=== PATIENT | female | born 1955 | race Caucasian/White ===

== ENCOUNTER 2022-12-06 04:14 | Inpatient (IN) | payer MEDICARE, OTHER ==
[~2022-12-06] VITALS: Ht 162.6 cm; Wt 104.4 kg
[~2022-12-06 04:14] MED LIST: ALBU108A5 INH; BACL10TA PO; FURO40TA4 PO; HYDR1TAB97 PO; HYDR50TA69 PO; LISI-716 PO; WARF5TAB71 PO
[2022-12-06] MEDS ORDERED: ONDANSETRON HCL 4 MG/2 ML VIAL IV PRN (09:15)
[2022-12-06] MEDS ORDERED: NITROGLYCERIN 0.4 MG SL TAB SL PRN (09:15)
[2022-12-06] MEDS ORDERED: hydrALAZINE HCL 20 MG/ML VL IV PRN (09:15)
[2022-12-06] MEDS ORDERED: HYDROcodone-ACET 5/325MG TAB PO PRN (09:15)
[2022-12-06] MEDS ORDERED: ACETAMINOPHEN 325 MG TAB PO PRN (09:15)
[2022-12-06] MEDS ORDERED: MORPHINE SULFATE INJ 2 MG/ml SYRG IV PRN ×2 (09:15)
[2022-12-06] MEDS ORDERED: ENOXAPARIN SOD 40 MG/0.4 ML SYRINGE SC SCH (10:00)
[2022-12-06] MEDS ORDERED: LORazepam 0.5 MG TAB PO PRN (11:45)
[2022-12-06] MEDS: PANTOPRAZOLE 40 MG TAB PO SCH (11:52)
[2022-12-06] MEDS: HYDROmorphone HCL 2 MG/ML VL/or syr IV PRN (14:58)
[2022-12-06 16:46] VITALS: BP 122/66
[2022-12-06 18:23] VITALS: BP 122/66
[2022-12-06 19:00] LABS: BUN/Creatinine Ratio 16.5; Magnesium 2.4 mg/dL (1.6-2.6); Potassium 5.1 mmol/L (3.5-5.1)
[2022-12-06 19:15] LABS: Basophils # (auto) 0 10 ^3/uL (0-0.2); Basophils % (auto) 0.4 % (0.0-2.0); Eosinophils # (auto) 0.1 10 ^3/uL (0-0.8); Eosinophils % (auto) 0.9 % (0.0-7.0); Hematocrit 30.4 % (36.0-46.0); Hemoglobin 9.5 g/dL (12.2-16.2); Lymphocytes # (auto) 0.5 10 ^3/uL (0.4-5.4); Lymphocytes % (auto) 5.1 % (10.0-50.0); Mean Corpuscular Hemoglobin 27.1 pg (28.0-32.0); Mean Corpuscular Hgb Conc. 31.3 g/dL (32.0-36.0); Mean Corpuscular Volume 86.6 fL (80.0-100.0); Monocytes # (auto) 0.9 10 ^3/uL (0-1.3); Monocytes % (auto) 8.8 % (0.0-12.0); Neutrophils # (auto) 8.4 10 ^3/uL (1.6-8.6); Neutrophils % (auto) 84.8 % (37.0-80.0); Red Blood Cells 3.51 10^6/uL (4.0-5.20); Red Cell Distribution Width 18.5 % (11.8-14.3); White Blood Cell 9.9 10^3/uL (4.4-10.8)
[2022-12-06 20:00] VITALS: BP 135/66
[2022-12-06 20:02] LABS: INR 1.35 (0.9-1.15)
[2022-12-06 22:00] VITALS: BP 135/66
[2022-12-06] MEDS: ENOXAPARIN SOD 100 MG/1 ML SYRINGE SC SCH (22:02)
[2022-12-06] MEDS: OXYCODONE W/ ACETAMINOPHEN 5/325MG TABLET PO PRN (22:09)
[2022-12-07] VITALS (7 sets, daily range): BP systolic 114–151; BP diastolic 66–93
[2022-12-07] MEDS: OXYCODONE W/ ACETAMINOPHEN 5/325MG TABLET PO PRN ×3 (05:01→18:46)
[2022-12-07 05:43] LABS: Basophils # (auto) 0 10 ^3/uL (0-0.2); Basophils % (auto) 0.5 % (0.0-2.0); Eosinophils # (auto) 0.1 10 ^3/uL (0-0.8); Eosinophils % (auto) 1.8 % (0.0-7.0); Hematocrit 28.1 % (36.0-46.0); Hemoglobin 8.9 g/dL (12.2-16.2); Lymphocytes # (auto) 0.7 10 ^3/uL (0.4-5.4); Lymphocytes % (auto) 9.3 % (10.0-50.0); Mean Corpuscular Hemoglobin 27.3 pg (28.0-32.0); Mean Corpuscular Hgb Conc. 31.8 g/dL (32.0-36.0); Mean Corpuscular Volume 85.9 fL (80.0-100.0); Monocytes # (auto) 0.8 10 ^3/uL (0-1.3); Monocytes % (auto) 10.6 % (0.0-12.0); Neutrophils # (auto) 5.7 10 ^3/uL (1.6-8.6); Neutrophils % (auto) 77.8 % (37.0-80.0); Nucleated Red Blood Cells % 1.1 %; Red Blood Cells 3.27 10^6/uL (4.0-5.20); Red Cell Distribution Width 18.5 % (11.8-14.3); White Blood Cell 7.4 10^3/uL (4.4-10.8)
[2022-12-07 06:00] LABS: Potassium 4.2 mmol/L (3.5-5.1)
[2022-12-07 06:02] LABS: INR 1.38 (0.9-1.15); Partial Thromboplastin Time 41.1 sec (24.6-33.4)
[2022-12-07 06:13] LABS: Albumin 2.6 g/dL (3.4-5.0); BUN/Creatinine Ratio 16.9; Calcium 9.1 mg/dL (8.5-10.1)
[2022-12-07 06:16] LABS: Bilirubin, Total 0.7 mg/dL (0.2-1.0); Total Protein 6.9 g/dL (6.4-8.2)
[2022-12-07] MEDS: FUROSEMIDE 40 MG TAB PO SCH (09:32)
[2022-12-07] MEDS: PANTOPRAZOLE 40 MG TAB PO SCH (09:32)
[2022-12-07] MEDS: LISINOPRIL 10 MG TAB PO SCH (09:33)
[2022-12-07] MEDS: ENOXAPARIN SOD 100 MG/1 ML SYRINGE SC SCH (09:37)
[2022-12-07] MEDS ORDERED: WARFARIN SODIUM 5 MG TAB PO SCH ×2 (10:00→17:00)
[2022-12-07] MEDS: DAPTOmycin 500 MG in SODIUM CHL 0.9% 100 ML IV SCH (16:27)
[2022-12-08] VITALS (7 sets, daily range): BP systolic 119–135; BP diastolic 66–92
[2022-12-08] MEDS: OXYCODONE W/ ACETAMINOPHEN 5/325MG TABLET PO PRN ×2 (00:08→22:04)
[2022-12-08] MEDS: HYDROcodone-ACET 5/325MG TAB PO PRN ×3 (01:19→22:04)
[2022-12-08 07:08] LABS: INR 1.38 (0.9-1.15); Partial Thromboplastin Time 38.3 sec (24.6-33.4)
[2022-12-08] MEDS ORDERED: AMIODARONE 450mg/250ml AE 250 ML IV SCH (08:00)
[2022-12-08] MEDS: LISINOPRIL 10 MG TAB PO SCH (09:17)
[2022-12-08] MEDS: PANTOPRAZOLE 40 MG TAB PO SCH (09:19)
[2022-12-08] MEDS: FUROSEMIDE 40 MG TAB PO SCH (09:20)
[2022-12-08] MEDS: DAPTOmycin 500 MG in SODIUM CHL 0.9% 100 ML IV SCH (15:57)
[2022-12-08] MEDS ORDERED: WARFARIN SODIUM 2 MG TAB PO ONE (17:00)
[2022-12-09] MEDS: OXYCODONE W/ ACETAMINOPHEN 5/325MG TABLET PO PRN ×3 (02:01→23:05)
[2022-12-09 05:00] VITALS: BP 122/65
[2022-12-09 07:03] LABS: INR 1.32 (0.9-1.15); Partial Thromboplastin Time 31.4 sec (24.6-33.4)
[2022-12-09 08:00] VITALS: BP 117/65
[2022-12-09] MEDS: DAPTOmycin 500 MG in SODIUM CHL 0.9% 100 ML IV SCH (09:57)
[2022-12-09] MEDS: PANTOPRAZOLE 40 MG TAB PO SCH (09:57)
[2022-12-09] MEDS: FUROSEMIDE 40 MG TAB PO SCH (09:58)
[2022-12-09] MEDS: LISINOPRIL 10 MG TAB PO SCH (09:58)
[2022-12-09 12:00] VITALS: BP 134/68
[2022-12-09] MEDS: AMIODARONE HCL 200 MG TAB PO SCH ×2 (12:19→21:24)
[2022-12-09 16:00] VITALS: BP 121/62
[2022-12-09] MEDS ORDERED: WARFARIN SODIUM 2 MG TAB PO ONE (17:00)
[2022-12-09 22:00] VITALS: BP_SYST 111; BP_SYST 146; BP_DIAS 66; BP_DIAS 72
[2022-12-10 05:00] VITALS: BP 105/46
[2022-12-10 07:14] LABS: INR 1.52 (0.9-1.15)
[2022-12-10 08:00] VITALS: BP 142/74
[2022-12-10] MEDS: AMIODARONE HCL 200 MG TAB PO SCH ×2 (09:16→21:02)
[2022-12-10] MEDS: PANTOPRAZOLE 40 MG TAB PO SCH (09:16)
[2022-12-10] MEDS: LISINOPRIL 10 MG TAB PO SCH (09:17)
[2022-12-10] MEDS: FUROSEMIDE 40 MG TAB PO SCH (09:17)
[2022-12-10] MEDS: OXYCODONE W/ ACETAMINOPHEN 5/325MG TABLET PO PRN ×2 (09:18→14:25)
[2022-12-10] MEDS: DAPTOmycin 500 MG in SODIUM CHL 0.9% 100 ML IV SCH (09:19)
[2022-12-10 12:00] VITALS: BP 127/64
[2022-12-10 16:00] VITALS: BP 153/81
[2022-12-10] MEDS: HYDROmorphone HCL 2 MG/ML VL/or syr IV PRN ×2 (16:05→21:03)
[2022-12-10] MEDS ORDERED: WARFARIN SODIUM 5 MG TAB PO ONE (17:00)
[2022-12-10 22:00] VITALS: BP 153/75
[2022-12-11] MEDS: OXYCODONE W/ ACETAMINOPHEN 5/325MG TABLET PO PRN ×2 (03:42→15:26)
[2022-12-11 05:00] VITALS: BP 137/77
[2022-12-11 07:42] LABS: INR 1.48 (0.9-1.15)
[2022-12-11] MEDS: LISINOPRIL 10 MG TAB PO SCH (08:45)
[2022-12-11] MEDS: FUROSEMIDE 40 MG TAB PO SCH (08:46)
[2022-12-11] MEDS: AMIODARONE HCL 200 MG TAB PO SCH (08:46)
[2022-12-11 09:00] VITALS: BP 147/48
[2022-12-11] MEDS: DAPTOmycin 500 MG in SODIUM CHL 0.9% 100 ML IV SCH (10:00)
[2022-12-11 13:00] VITALS: BP 125/64
[2022-12-11] MEDS ORDERED: WARFARIN SODIUM 2 MG TAB PO ONE (17:00)
== END 2022-12-11 17:15 | DRG 565 ==
LOC: EDBD 04:14 → ER 04:14 → OVERFLOW 09:07 → WEST WING 16:15 → TELE-WESTW 17:57
PROVIDERS: ADMIT Nurse Practitioner; ATTEND Nurse Practitioner
PROC: 0S9D3ZX Drainage of Left Knee Joint, Percutaneous Approach, Diagnostic (ICD-10-PCS; principal; 2022-12-07)
DX: M25.462 Effusion, left knee (principal); D68.59 Other primary thrombophilia; I48.92 Unspecified atrial flutter; I13.0 Hypertensive heart and chronic kidney disease with heart failure and stage 1 through stage 4 chronic kidney disease, or unspecified chronic kidney disease; I50.30 Unspecified diastolic (congestive) heart failure; S83.102A Unspecified subluxation of left knee, initial encounter; N18.9 Chronic kidney disease, unspecified; E03.9 Hypothyroidism, unspecified; Z20.822 Contact with and (suspected) exposure to COVID-19; E66.01 Morbid (severe) obesity due to excess calories; I48.0 Paroxysmal atrial fibrillation; I25.10 Atherosclerotic heart disease of native coronary artery without angina pectoris; J45.909 Unspecified asthma, uncomplicated; M10.9 Gout, unspecified; M19.90 Unspecified osteoarthritis, unspecified site; Z68.39 Body mass index [BMI] 39.0-39.9, adult; Z88.1 Allergy status to other antibiotic agents; Z95.5 Presence of coronary angioplasty implant and graft; Z88.8 Allergy status to other drugs, medicaments and biological substances; Z90.49 Acquired absence of other specified parts of digestive tract; Z79.01 Long term (current) use of anticoagulants; Z79.899 Other long term (current) drug therapy; Z95.1 Presence of aortocoronary bypass graft; X58.XXXA Exposure to other specified factors, initial encounter; Y93.89 Activity, other specified; Y92.89 Other specified places as the place of occurrence of the external cause; Y99.8 Other external cause status
CPT/HCPCS: 36415; 73562; 73700; 76942; 80048; 80053; 83735; 83986; 85025; 85610; 85730; 87081; 87205; 87426; 89051; 93005; 97163; G0378; J2405

== ENCOUNTER 2023-06-04 13:55 | Inpatient (IN) | payer MEDICARE, OTHER ==
[~2023-06-04] VITALS: Ht 165.1 cm; Wt 87.8 kg
[~2023-06-04 13:55] MED LIST changes: -LISI-716 PO; +LISI10TA34 PO; +WARF-66 PO; -WARF5TAB71 PO
[2023-06-04] MEDS ORDERED: PIPERACILLIN-TAZOB 3.375GM 100 ML IV ONE (15:45)
[2023-06-04 16:17] LABS: Basophils # (auto) 0 10 ^3/uL (0-0.2); Basophils % (auto) 0.8 % (0.0-2.0); Eosinophils # (auto) 0.3 10 ^3/uL (0-0.8); Eosinophils % (auto) 5.3 % (0.0-7.0); Hematocrit 36.1 % (36.0-46.0); Hemoglobin 12.2 g/dL (12.2-16.2); Lymphocytes # (auto) 1.2 10 ^3/uL (0.4-5.4); Lymphocytes % (auto) 22.9 % (10.0-50.0); Mean Corpuscular Hemoglobin 31.1 pg (28.0-32.0); Mean Corpuscular Hgb Conc. 33.7 g/dL (32.0-36.0); Mean Corpuscular Volume 92.2 fL (80.0-100.0); Monocytes # (auto) 0.6 10 ^3/uL (0-1.3); Monocytes % (auto) 11.6 % (0.0-12.0); Neutrophils # (auto) 3.1 10 ^3/uL (1.6-8.6); Neutrophils % (auto) 59.4 % (37.0-80.0); Nucleated Red Blood Cells % 0.1 %; Red Blood Cells 3.92 10^6/uL (4.0-5.20); Red Cell Distribution Width 14.4 % (11.8-14.3); White Blood Cell 5.2 10^3/uL (4.4-10.8)
[2023-06-04 16:29] LABS: Alanine Aminotransferase 24 U/L (7-40); Alkaline Phosphatase 147 U/L (46-116); Anion Gap 5.5 (5-15); Aspartate Aminotransferase 15 U/L (13-40); BUN/Creatinine Ratio 18.6 (10.0-20.0); Bilirubin, Total 0.3 mg/dL (0.2-1.0); Blood Urea Nitrogen 27 mg/dL (9-23); Calcium 9.4 mg/dL (8.5-10.1); Carbon Dioxide 26.5 mmol/L (20-30); Chloride 110 mmol/L (98-107); Glucose 106 mg/dL (74-106); Potassium 5.2 mmol/L (3.5-5.1); Sodium 142 mmol/L (136-145); Total Protein 6.9 g/dL (5.7-8.2)
[2023-06-04] MEDS ORDERED: VANCOMYCIN 1GM/250ML 250 ML IV ONE (16:45)
[2023-06-04] MEDS ORDERED: SODIUM CHLORIDE 0.9% 1,000 ML IV ONE ×2 (16:45)
[2023-06-04 17:06] LABS: INR 1.04 (0.9-1.15); Partial Thromboplastin Time 31.9 SEC (24.5-34.5); Prothrombin Time 10.9 sec (9.3-11.8)
[2023-06-04 21:17] LABS: Urine Bacteria FEW /hpf (None Seen); Urine Blood Negative /uL (Negative); Urine Clarity Clear (Clear); Urine Color Colorless (Yellow); Urine Protein, UAD Negative (Negative); Urine Specific Gravity 1.019 (1.001-1.035); Urine Urobilinogen Normal (Negative); Urine WBC 1 /hpf (0 - 5); Urine pH 6.5 (5.0-8.0)
[2023-06-04] MEDS ORDERED: VANCOMYCIN PER PHARMACY 0 MG IV SCH (21:45)
[2023-06-04] MEDS ORDERED: DOCUSATE SOD 100 MG CAP PO PRN (21:45)
[2023-06-04] MEDS ORDERED: MORPHINE SULFATE INJ 2 MG/ml SYRG IV PRN ×2 (21:45)
[2023-06-04] MEDS ORDERED: NITROGLYCERIN 0.4 MG SL TAB SL PRN (21:45)
[2023-06-04] MEDS ORDERED: ACETAMINOPHEN 325 MG TAB PO PRN (21:45)
[2023-06-04] MEDS ORDERED: ONDANSETRON HCL 4 MG/2 ML VIAL IV PRN (21:45)
[2023-06-05] MEDS: SODIUM CHLORIDE 0.9% 1,000 ML IV SCH ×2 (04:15→11:01)
[2023-06-05] MEDS: ASCORBIC ACID 500 MG TAB PO SCH ×3 (04:27→21:59)
[2023-06-05 06:03] LABS: Basophils # (auto) 0 10 ^3/uL (0-0.2); Basophils % (auto) 0.7 % (0.0-2.0); Eosinophils # (auto) 0.3 10 ^3/uL (0-0.8); Hematocrit 35.2 % (36.0-46.0); Hemoglobin 11.8 g/dL (12.2-16.2); Lymphocytes # (auto) 1.2 10 ^3/uL (0.4-5.4); Lymphocytes % (auto) 19.8 % (10.0-50.0); Mean Corpuscular Hemoglobin 30.8 pg (28.0-32.0); Mean Corpuscular Hgb Conc. 33.5 g/dL (32.0-36.0); Mean Corpuscular Volume 91.9 fL (80.0-100.0); Monocytes # (auto) 0.6 10 ^3/uL (0-1.3); Monocytes % (auto) 10.3 % (0.0-12.0); Neutrophils # (auto) 3.8 10 ^3/uL (1.6-8.6); Neutrophils % (auto) 64.2 % (37.0-80.0); Nucleated Red Blood Cells % 0.1 %; Red Blood Cells 3.83 10^6/uL (4.0-5.20); Red Cell Distribution Width 14.6 % (11.8-14.3)
[2023-06-05 06:19] LABS: Alanine Aminotransferase 20 U/L (7-40); Albumin 4.1 g/dL (3.2-4.8); Alkaline Phosphatase 144 U/L (46-116); Calcium 9.4 mg/dL (8.5-10.1); Chloride 110 mmol/L (98-107)
[2023-06-05 06:20] LABS: Aspartate Aminotransferase 12 U/L (13-40); BUN/Creatinine Ratio 14.9 (10.0-20.0); Bilirubin, Total 0.5 mg/dL (0.2-1.0); Blood Urea Nitrogen 20 mg/dL (9-23); Glucose 91 mg/dL (74-106); Potassium 4.4 mmol/L (3.5-5.1); Sodium 142 mmol/L (136-145); Total Protein 7.2 g/dL (5.7-8.2)
[2023-06-05 07:00] LABS: Anion Gap 9.8 (5-15); Carbon Dioxide 22.2 mmol/L (20-30)
[2023-06-05 09:08] VITALS: PULSE 62; RESP 12; O2SAT 96
[2023-06-05] MEDS ORDERED: ENOXAPARIN SOD 40 MG/0.4 ML SYRINGE SC SCH (10:00)
[2023-06-05] MEDS: LISINOPRIL 10 MG TAB PO SCH (10:57)
[2023-06-05] MEDS: MULTIPLE VITAMIN TAB PO SCH (10:58)
[2023-06-05] MEDS: PANTOPRAZOLE 40 MG TAB PO SCH (11:00)
[2023-06-05] MEDS: ZINC SULFATE 220mg CAP or TAB PO SCH (11:01)
[2023-06-05] MEDS ORDERED: SPIR25TA8 PO (11:05)
[2023-06-05] MEDS ORDERED: APIX5TAB PO (11:05)
[2023-06-05] MEDS ORDERED: AMIO100T3 PO (11:05)
[2023-06-05] MEDS ORDERED: QUET1TAB11 PO (11:05)
[2023-06-05] MEDS: VANCOMYCIN 1GM/250ML 250 ML IV SCH (12:28)
[2023-06-05 17:35] VITALS: BP 144/66; PULSE 55; RESP 18; TEMP 98.8; O2SAT 94
[2023-06-05 18:23] VITALS: PULSE 55; RESP 18; O2SAT 95
[2023-06-05 19:30] VITALS: PULSE 55; RESP 17; O2SAT 95
[2023-06-05 20:00] VITALS: PULSE 59
[2023-06-05] MEDS: QUEtiapine FUMARATE 25 MG TAB PO SCH (21:59)
[2023-06-05] MEDS: APIXABAN 5 MG TAB PO SCH (21:59)
[2023-06-05 22:00] VITALS: BP 148/46; PULSE 55; RESP 17; TEMP 98.6; O2SAT 95
[2023-06-06] VITALS (7 sets, daily range): BP systolic 130–164; BP diastolic 50–79; PULSE 56–69; RESP 17–18; TEMP 97.8–98.7; O2SAT 94–95
[2023-06-06] MEDS ORDERED: cefTRIAXone 1GM/50ML D5W 100 ML IV ONE (00:20)
[2023-06-06] MEDS: CEFTRIAXONE SODIUM 2 GM in D5W 5% 100 ML IV SCH ×2 (00:23→22:08)
[2023-06-06] MEDS: SODIUM CHLORIDE 0.9% 1,000 ML IV SCH ×3 (06:43→22:08)
[2023-06-06] MEDS: APIXABAN 5 MG TAB PO SCH (09:41)
[2023-06-06] MEDS: ZINC SULFATE 220mg CAP or TAB PO SCH (09:41)
[2023-06-06] MEDS: QUEtiapine FUMARATE 25 MG TAB PO SCH ×2 (09:41→22:03)
[2023-06-06] MEDS: SPIRONOLACTONE 25 MG TAB PO SCH (09:41)
[2023-06-06] MEDS: MULTIPLE VITAMIN TAB PO SCH (09:41)
[2023-06-06] MEDS: ASCORBIC ACID 500 MG TAB PO SCH ×2 (09:41→22:03)
[2023-06-06] MEDS: PANTOPRAZOLE 40 MG TAB PO SCH (09:41)
[2023-06-06] MEDS: AMIODARONE HCL 200 MG TAB PO SCH (09:54)
[2023-06-06] MEDS: LISINOPRIL 10 MG TAB PO SCH (09:56)
[2023-06-06] MEDS ORDERED: AMIODARONE HCL PO SCH (10:00)
[2023-06-06] MEDS: VANCOMYCIN 1GM/250ML 250 ML IV SCH (12:03)
[2023-06-06] MEDS: HYDROcodone-ACET 5/325MG TAB PO PRN (22:06)
[2023-06-07] VITALS (7 sets, daily range): BP systolic 115–158; BP diastolic 68–95; PULSE 55–70; RESP 15–18; TEMP 97.9–98.7; O2SAT 94–95
[2023-06-07] MEDS: HYDROcodone-ACET 5/325MG TAB PO PRN ×2 (05:00→21:29)
[2023-06-07] MEDS ORDERED: ENOXAPARIN SOD 100 MG/1 ML SYRINGE SC SCH (10:00)
[2023-06-07] MEDS: SPIRONOLACTONE 25 MG TAB PO SCH (10:15)
[2023-06-07] MEDS: ZINC SULFATE 220mg CAP or TAB PO SCH (10:15)
[2023-06-07] MEDS: QUEtiapine FUMARATE 25 MG TAB PO SCH ×2 (10:16→21:18)
[2023-06-07] MEDS: PANTOPRAZOLE 40 MG TAB PO SCH (10:16)
[2023-06-07] MEDS: AMIODARONE HCL 200 MG TAB PO SCH (10:16)
[2023-06-07] MEDS: MULTIPLE VITAMIN TAB PO SCH (10:16)
[2023-06-07] MEDS: ASCORBIC ACID 500 MG TAB PO SCH ×2 (10:16→21:18)
[2023-06-07] MEDS: LISINOPRIL 10 MG TAB PO SCH (10:17)
[2023-06-07] MEDS: VANCOMYCIN 1GM/250ML 250 ML IV SCH (12:13)
[2023-06-07] MEDS: SODIUM CHLORIDE 0.9% 1,000 ML IV SCH (16:25)
[2023-06-07] MEDS: CEFTRIAXONE SODIUM 2 GM in D5W 5% 100 ML IV SCH (21:21)
[2023-06-08] MEDS ORDERED: ENOXAPARIN SOD 100 MG/1 ML SYRINGE SC SCH
[2023-06-08 04:52] VITALS: BP 153/85; PULSE 66; RESP 16; TEMP 98.3; O2SAT 91
[2023-06-08] MEDS: SODIUM CHLORIDE 0.9% 1,000 ML IV SCH (05:45)
[2023-06-08 06:33] LABS: Anion Gap 7 (5-15); Carbon Dioxide 25 mmol/L (20-30); Chloride 110 mmol/L (98-107); Sodium 142 mmol/L (136-145)
[2023-06-08 06:34] LABS: Calcium 9.4 mg/dL (8.7-10.4)
[2023-06-08 06:39] LABS: BUN/Creatinine Ratio 12.4 (10.0-20.0); Blood Urea Nitrogen 15 mg/dL (9-23); Glucose 89 mg/dL (74-106)
[2023-06-08 06:42] LABS: Basophils # (auto) 0 10 ^3/uL (0-0.2); Basophils % (auto) 0.8 % (0.0-2.0); Eosinophils # (auto) 0.3 10 ^3/uL (0-0.8); Eosinophils % (auto) 5.2 % (0.0-7.0); Hematocrit 34.3 % (36.0-46.0); Hemoglobin 11.6 g/dL (12.2-16.2); Lymphocytes # (auto) 1.3 10 ^3/uL (0.4-5.4); Lymphocytes % (auto) 22.7 % (10.0-50.0); Mean Corpuscular Hemoglobin 31.3 pg (28.0-32.0); Mean Corpuscular Hgb Conc. 33.9 g/dL (32.0-36.0); Mean Corpuscular Volume 92.3 fL (80.0-100.0); Monocytes # (auto) 0.6 10 ^3/uL (0-1.3); Monocytes % (auto) 10.8 % (0.0-12.0); Neutrophils # (auto) 3.5 10 ^3/uL (1.6-8.6); Neutrophils % (auto) 60.5 % (37.0-80.0); Nucleated Red Blood Cells % 0.1 %; Red Blood Cells 3.72 10^6/uL (4.0-5.20); Red Cell Distribution Width 13.8 % (11.8-14.3); White Blood Cell 5.7 10^3/uL (4.4-10.8)
[2023-06-08] MEDS: HYDROcodone-ACET 5/325MG TAB PO PRN (07:04)
[2023-06-08 08:00] VITALS: PULSE 67; RESP 18; O2SAT 95
[2023-06-08] MEDS ORDERED: CIPR-173 PO (09:59)
[2023-06-08] MEDS ORDERED: levoFLOXacin 500MG 100 ML IV SCH (10:00)
[2023-06-08 10:26] VITALS: BP 157/68; TEMP 36.8
[2023-06-08] MEDS ORDERED: APIXABAN 5 MG TAB PO SCH (10:33)
[2023-06-08] MEDS: SPIRONOLACTONE 25 MG TAB PO SCH (10:42)
[2023-06-08] MEDS: ZINC SULFATE 220mg CAP or TAB PO SCH (10:42)
[2023-06-08] MEDS: QUEtiapine FUMARATE 25 MG TAB PO SCH (10:43)
[2023-06-08] MEDS: AMIODARONE HCL 200 MG TAB PO SCH (10:43)
[2023-06-08] MEDS: LISINOPRIL 10 MG TAB PO SCH (10:43)
[2023-06-08] MEDS: MULTIPLE VITAMIN TAB PO SCH (10:44)
[2023-06-08] MEDS: PANTOPRAZOLE 40 MG TAB PO SCH (10:44)
[2023-06-08] MEDS: ASCORBIC ACID 500 MG TAB PO SCH (10:44)
== END 2023-06-08 13:23 | disposition home health service (06) | DRG 920 ==
LOC: ER 13:55 → TELE 21:42 → TELE-WESTW 06-05 17:22
PROVIDERS: ADMIT Nurse Practitioner; ATTEND Nurse Practitioner
DX: T81.31XA Disruption of external operation (surgical) wound, not elsewhere classified, initial encounter (principal); I13.0 Hypertensive heart and chronic kidney disease with heart failure and stage 1 through stage 4 chronic kidney disease, or unspecified chronic kidney disease; I50.32 Chronic diastolic (congestive) heart failure; I48.92 Unspecified atrial flutter; M19.90 Unspecified osteoarthritis, unspecified site; S81.002A Unspecified open wound, left knee, initial encounter; I25.10 Atherosclerotic heart disease of native coronary artery without angina pectoris; E87.5 Hyperkalemia; J45.909 Unspecified asthma, uncomplicated; M10.9 Gout, unspecified; X58.XXXA Exposure to other specified factors, initial encounter; E66.01 Morbid (severe) obesity due to excess calories; Z68.32 Body mass index [BMI] 32.0-32.9, adult; I48.0 Paroxysmal atrial fibrillation; N18.9 Chronic kidney disease, unspecified; Z79.01 Long term (current) use of anticoagulants; Z79.899 Other long term (current) drug therapy; Z86.718 Personal history of other venous thrombosis and embolism; Z88.8 Allergy status to other drugs, medicaments and biological substances; Z95.1 Presence of aortocoronary bypass graft; Z88.1 Allergy status to other antibiotic agents; Z90.49 Acquired absence of other specified parts of digestive tract; Y93.89 Activity, other specified; Y92.89 Other specified places as the place of occurrence of the external cause; Y99.8 Other external cause status
CPT/HCPCS: 36415; 71045; 73700; 73721; 80048; 80053; 80202; 81001; 83605; 84484; 85025; 85610; 85730; 87040; 87205; 96365; G0378; J0696; J1956; J2543; J7060

== ENCOUNTER 2023-11-15 21:56 | Inpatient (IN) | payer MEDICARE, OTHER ==
[~2023-11-15] VITALS: Ht 165.1 cm; Wt 86.5 kg
[~2023-11-15 21:56] MED LIST changes: +AMIO100T3 PO; +APIX5TAB PO; +CIPR-173 PO; +QUET1TAB11 PO; +SPIR25TA8 PO
[2023-11-15 23:25] LABS: Basophils # (auto) 0 10 ^3/uL (0-0.2); Basophils % (auto) 0.2 % (0.0-2.0); Eosinophils # (auto) 0 10 ^3/uL (0-0.8); Hematocrit 38.7 % (36.0-46.0); Hemoglobin 12.7 g/dL (12.2-16.2); Lymphocytes # (auto) 0.6 10 ^3/uL (0.4-5.4); Lymphocytes % (auto) 3.9 % (10.0-50.0); Mean Corpuscular Hemoglobin 31.4 pg (28.0-32.0); Mean Corpuscular Hgb Conc. 32.8 g/dL (32.0-36.0); Mean Corpuscular Volume 95.9 fL (80.0-100.0); Monocytes # (auto) 0.9 10 ^3/uL (0-1.3); Monocytes % (auto) 5.8 % (0.0-12.0); Neutrophils # (auto) 13.9 10 ^3/uL (1.6-8.6); Neutrophils % (auto) 90.1 % (37.0-80.0); Red Blood Cells 4.03 10^6/uL (4.0-5.20); White Blood Cell 15.4 10^3/uL (4.4-10.8)
[2023-11-15 23:47] LABS: Alanine Aminotransferase 18 U/L (7-40); Albumin 4.2 g/dL (3.2-4.8); Alkaline Phosphatase 111 U/L (46-116); Anion Gap 9 (5-15); Aspartate Aminotransferase 23 U/L (13-40); BUN/Creatinine Ratio 10.6 (10.0-20.0); Bilirubin, Total 0.8 mg/dL (0.2-1.0); Blood Urea Nitrogen 15 mg/dL (9-23); Calcium 9.8 mg/dL (8.5-10.1); Carbon Dioxide 26 mmol/L (20-30); Chloride 107 mmol/L (98-107); Glucose 113 mg/dL (74-106); Potassium 3.8 mmol/L (3.5-5.1); Sodium 142 mmol/L (136-145); Total Protein 6.9 g/dL (5.7-8.2)
[2023-11-15 23:55] LABS: CRP High Sensitivity 18.59 mg/dL (<1.0)
[2023-11-16] VITALS (7 sets, daily range): BP systolic 133; BP diastolic 60; PULSE 81–103; RESP 16; TEMP 99.1; O2SAT 94–98
[2023-11-16 00:09] LABS: Lipase 40 U/L (12-53)
[2023-11-16] MEDS: HYDROmorphone HCL 2 MG/ML VL/or syr IM ONE (00:37)
[2023-11-16] MEDS: ACETAMINOPHEN 500 MG TAB PO ONE (00:38)
[2023-11-16] MEDS ORDERED: VANCOMYCIN PER PHARMACY 0 MG IV SCH (01:30)
[2023-11-16] MEDS: PIPERACILLIN-TAZOB 3.375GM 100 ML IV ONE (02:07)
[2023-11-16] MEDS ORDERED: VANCOMYCIN IV SCH (02:30)
[2023-11-16] MEDS ORDERED: SODIUM CHL 0.9% IV SCH (02:30)
[2023-11-16] MEDS ORDERED: DOCUSATE SOD 100 MG CAP PO PRN (02:45)
[2023-11-16] MEDS: HYDROcodone-ACET 5/325MG TAB PO PRN (04:14)
[2023-11-16 05:31] LABS: Basophils # (auto) 0 10 ^3/uL (0-0.2); Basophils % (auto) 0.3 % (0.0-2.0); Eosinophils # (auto) 0 10 ^3/uL (0-0.8); Eosinophils % (auto) 0.3 % (0.0-7.0); Hematocrit 36.1 % (36.0-46.0); Hemoglobin 12.2 g/dL (12.2-16.2); Lymphocytes # (auto) 0.7 10 ^3/uL (0.4-5.4); Lymphocytes % (auto) 5.5 % (10.0-50.0); Mean Corpuscular Hemoglobin 32.2 pg (28.0-32.0); Mean Corpuscular Hgb Conc. 33.7 g/dL (32.0-36.0); Mean Corpuscular Volume 95.6 fL (80.0-100.0); Monocytes % (auto) 7.3 % (0.0-12.0); Neutrophils # (auto) 11.3 10 ^3/uL (1.6-8.6); Neutrophils % (auto) 86.6 % (37.0-80.0); Red Blood Cells 3.78 10^6/uL (4.0-5.20); Red Cell Distribution Width 14.8 % (11.8-14.3); White Blood Cell 13.1 10^3/uL (4.4-10.8)
[2023-11-16] MEDS: SODIUM CHLOR 0.9% PF (SALINE LOCK) 10ML VIAL/SYR IV SCH (05:33)
[2023-11-16 05:44] LABS: Alanine Aminotransferase 18 U/L (7-40); Albumin 4.1 g/dL (3.2-4.8); Alkaline Phosphatase 107 U/L (46-116); Anion Gap 9 (5-15); Aspartate Aminotransferase 19 U/L (13-40); BUN/Creatinine Ratio 13.8 (10.0-20.0); Blood Urea Nitrogen 21 mg/dL (9-23); Calcium 9.5 mg/dL (8.5-10.1); Carbon Dioxide 27 mmol/L (20-30); Chloride 107 mmol/L (98-107); Glucose 116 mg/dL (74-106); Potassium 3.7 mmol/L (3.5-5.1); Sodium 143 mmol/L (136-145)
[2023-11-16 05:45] LABS: Bilirubin, Total 0.9 mg/dL (0.2-1.0)
[2023-11-16] MEDS ORDERED: NITROGLYCERIN 0.4 MG SL TAB SL PRN (07:00)
[2023-11-16] MEDS ORDERED: MORPHINE SULFATE INJ 2 MG/ml SYRG IV PRN (07:00)
[2023-11-16] MEDS ORDERED: VANCOMYCIN 1GM/200ML 200 ML IV ONE (13:45)
[2023-11-16] MEDS ORDERED: cefTRIAXone 2GM/50ML D5W 50 ML IV ONE (14:45)
[2023-11-16] MEDS: CLINDAMYCIN 600MG IV 50 ML IV ONE (15:44)
[2023-11-16] MEDS: PIPERACILLIN-TAZOB 3.375GM 100 ML IV SCH ×2 (15:45→23:52)
[2023-11-16] MEDS: hydrALAZINE HCL 20 MG/ML VL IV PRN (18:19)
[2023-11-16] MEDS: ACETAMINOPHEN 325 MG TAB PO PRN (18:28)
[2023-11-16] MEDS: CLINDAMYCIN 900MG IV 50 ML IV SCH (21:33)
[2023-11-16] MEDS: ONDANSETRON HCL 4 MG/2 ML VIAL IV PRN (21:33)
[2023-11-17] VITALS (8 sets, daily range): BP systolic 109–137; BP diastolic 49–84; PULSE 90–102; RESP 16–20; TEMP 97.9–99.7; O2SAT 92–95
[2023-11-17 05:38] LABS: Basophils # (auto) 0 10 ^3/uL (0-0.2); Basophils % (auto) 0.1 % (0.0-2.0); Eosinophils # (auto) 0 10 ^3/uL (0-0.8); Hemoglobin 12.2 g/dL (12.2-16.2); Lymphocytes # (auto) 0.5 10 ^3/uL (0.4-5.4); Lymphocytes % (auto) 3.4 % (10.0-50.0); Mean Corpuscular Hemoglobin 31.8 pg (28.0-32.0); Mean Corpuscular Volume 96.6 fL (80.0-100.0); Monocytes % (auto) 6.5 % (0.0-12.0); Red Blood Cells 3.83 10^6/uL (4.0-5.20); Red Cell Distribution Width 15.1 % (11.8-14.3); White Blood Cell 15.5 10^3/uL (4.4-10.8)
[2023-11-17 06:02] LABS: Alanine Aminotransferase 19 U/L (7-40); Alkaline Phosphatase 123 U/L (46-116); Anion Gap 11 (5-15); BUN/Creatinine Ratio 11.9 (10.0-20.0); Blood Urea Nitrogen 16 mg/dL (9-23); Calcium 9.5 mg/dL (8.7-10.4); Carbon Dioxide 24 mmol/L (20-30); Chloride 106 mmol/L (98-107); Glucose 126 mg/dL (74-106); Potassium 4.2 mmol/L (3.5-5.1); Sodium 141 mmol/L (136-145)
[2023-11-17 06:03] LABS: Albumin 4.1 g/dL (3.2-4.8); Aspartate Aminotransferase 18 U/L (13-40)
[2023-11-17 06:04] LABS: Bilirubin, Total 0.7 mg/dL (0.2-1.0); Total Protein 7.2 g/dL (5.7-8.2)
[2023-11-17] MEDS ORDERED: VANCOMYCIN PER PHARMACY 0 MG IV SCH (15:30)
[2023-11-17] MEDS: VANCOMYCIN 1GM/200ML 200 ML IV SCH (17:00)
[2023-11-18 04:00] VITALS: BP 149/74; PULSE 61; RESP 20; TEMP 98.5; O2SAT 90
[2023-11-18 09:00] VITALS: BP 129/62; PULSE 74; RESP 22; TEMP 98.4; O2SAT 97
[2023-11-18 09:17] LABS: Basophils # (auto) 0 10 ^3/uL (0-0.2); Basophils % (auto) 0.3 % (0.0-2.0); Eosinophils # (auto) 0.1 10 ^3/uL (0-0.8); Eosinophils % (auto) 0.6 % (0.0-7.0); Hematocrit 34.5 % (36.0-46.0); Hemoglobin 11.3 g/dL (12.2-16.2); Lymphocytes # (auto) 0.7 10 ^3/uL (0.4-5.4); Lymphocytes % (auto) 5.7 % (10.0-50.0); Mean Corpuscular Hemoglobin 31.5 pg (28.0-32.0); Mean Corpuscular Hgb Conc. 32.7 g/dL (32.0-36.0); Mean Corpuscular Volume 96.2 fL (80.0-100.0); Monocytes # (auto) 0.9 10 ^3/uL (0-1.3); Neutrophils # (auto) 9.8 10 ^3/uL (1.6-8.6); Neutrophils % (auto) 85.4 % (37.0-80.0); Red Blood Cells 3.58 10^6/uL (4.0-5.20); White Blood Cell 11.5 10^3/uL (4.4-10.8)
[2023-11-18] MEDS ORDERED: EPINEPHrine HCL 1 MG/10 ML SYRG IV ONE (09:19)
[2023-11-18] MEDS ORDERED: CALCIUM CHLOR(10%) 100MG/ML 10ML SYRINGE IV ONE (09:19)
[2023-11-18 09:24] LABS: Alanine Aminotransferase 23 U/L (7-40); Alkaline Phosphatase 117 U/L (46-116); Anion Gap 10 (5-15); Aspartate Aminotransferase 24 U/L (13-40); BUN/Creatinine Ratio 16.3 (10.0-20.0); Bilirubin, Total 0.5 mg/dL (0.2-1.0); Blood Urea Nitrogen 25 mg/dL (9-23); Calcium 9.6 mg/dL (8.5-10.1); Carbon Dioxide 25 mmol/L (20-30); Chloride 106 mmol/L (98-107); Glucose 109 mg/dL (74-106); Sodium 141 mmol/L (136-145); Total Protein 6.9 g/dL (5.7-8.2)
[2023-11-18 13:00] VITALS: BP 148/70; PULSE 83; RESP 20; TEMP 98.3; O2SAT 92
[2023-11-18 17:00] VITALS: BP 149/79; PULSE 93; RESP 18; TEMP 98.6; O2SAT 92
[2023-11-18 20:00] VITALS: PULSE 94
[2023-11-18] MEDS: LINEZOLID 600MG/300ML 300 ML IV SCH (21:48)
[2023-11-18 22:00] VITALS: BP 145/79; PULSE 82; RESP 18; TEMP 98.7; O2SAT 91
[2023-11-18] MEDS: OXYCODONE W/ ACETAMINOPHEN 5/325MG TABLET PO PRN (22:03)
[2023-11-19] VITALS (8 sets, daily range): BP systolic 118–163; BP diastolic 67–81; PULSE 72–87; RESP 14–22; TEMP 97.8–99.2; O2SAT 90–95
[2023-11-19 07:13] LABS: Basophils # (auto) 0 10 ^3/uL (0-0.2); Basophils % (auto) 0.4 % (0.0-2.0); Eosinophils # (auto) 0.2 10 ^3/uL (0-0.8); Eosinophils % (auto) 2.7 % (0.0-7.0); Hematocrit 33.9 % (36.0-46.0); Hemoglobin 11.3 g/dL (12.2-16.2); Lymphocytes # (auto) 0.9 10 ^3/uL (0.4-5.4); Mean Corpuscular Hemoglobin 32.2 pg (28.0-32.0); Mean Corpuscular Hgb Conc. 33.3 g/dL (32.0-36.0); Mean Corpuscular Volume 96.7 fL (80.0-100.0); Monocytes # (auto) 0.6 10 ^3/uL (0-1.3); Monocytes % (auto) 9.1 % (0.0-12.0); Neutrophils # (auto) 5.3 10 ^3/uL (1.6-8.6); Neutrophils % (auto) 74.8 % (37.0-80.0); Nucleated Red Blood Cells % 0.1 %; Red Cell Distribution Width 14.5 % (11.8-14.3); White Blood Cell 7.1 10^3/uL (4.4-10.8)
[2023-11-19 07:28] LABS: Alanine Aminotransferase 25 U/L (7-40); Albumin 3.5 g/dL (3.2-4.8); Alkaline Phosphatase 104 U/L (46-116); Anion Gap 5 (5-15); Aspartate Aminotransferase 19 U/L (13-40); BUN/Creatinine Ratio 19.5 (10.0-20.0); Blood Urea Nitrogen 26 mg/dL (9-23); Calcium 8.9 mg/dL (8.5-10.1); Carbon Dioxide 29 mmol/L (20-30); Chloride 107 mmol/L (98-107); Glucose 95 mg/dL (74-106); Potassium 4.3 mmol/L (3.5-5.1); Sodium 141 mmol/L (136-145)
[2023-11-19 07:29] LABS: Bilirubin, Total 0.4 mg/dL (0.2-1.0); Total Protein 5.8 g/dL (5.7-8.2)
[2023-11-19] MEDS: PIPERACILLIN-TAZOB 3.375GM 100 ML IV SCH (11:42)
[2023-11-19 12:16] LABS: Urine Bacteria FEW /hpf (None Seen); Urine Blood 2+ /uL (Negative); Urine Clarity HAZY (Clear); Urine Color Yellow (Yellow); Urine Mucus FEW (None Seen); Urine Protein, UAD 1+ (Negative); Urine Specific Gravity 1.028 (1.001-1.035); Urine WBC 9 /hpf (0 - 5); Urine pH 5.5 (5.0-8.0)
[2023-11-20] VITALS (7 sets, daily range): BP systolic 116–170; BP diastolic 45–87; PULSE 72–92; RESP 16–22; TEMP 98–98.6; O2SAT 92–96
[2023-11-20] MEDS: SUMAtriptan SUCCINATE 25 MG TAB PO ONE (00:27)
[2023-11-20 07:11] LABS: Basophils # (auto) 0.1 10 ^3/uL (0-0.2); Basophils % (auto) 0.8 % (0.0-2.0); Eosinophils # (auto) 0.2 10 ^3/uL (0-0.8); Eosinophils % (auto) 3.5 % (0.0-7.0); Hematocrit 35.5 % (36.0-46.0); Hemoglobin 12.1 g/dL (12.2-16.2); Lymphocytes % (auto) 14.6 % (10.0-50.0); Mean Corpuscular Hemoglobin 32.7 pg (28.0-32.0); Mean Corpuscular Hgb Conc. 34.2 g/dL (32.0-36.0); Mean Corpuscular Volume 95.7 fL (80.0-100.0); Monocytes # (auto) 0.7 10 ^3/uL (0-1.3); Monocytes % (auto) 10.9 % (0.0-12.0); Neutrophils # (auto) 4.6 10 ^3/uL (1.6-8.6); Neutrophils % (auto) 70.2 % (37.0-80.0); Nucleated Red Blood Cells % 0.2 %; Red Blood Cells 3.71 10^6/uL (4.0-5.20); Red Cell Distribution Width 14.5 % (11.8-14.3); White Blood Cell 6.5 10^3/uL (4.4-10.8)
[2023-11-20 07:22] LABS: Alanine Aminotransferase 23 U/L (7-40); Albumin 3.9 g/dL (3.2-4.8); Alkaline Phosphatase 110 U/L (46-116); Anion Gap 8 (5-15); Aspartate Aminotransferase 20 U/L (13-40); BUN/Creatinine Ratio 13.5 (10.0-20.0); Bilirubin, Total 0.4 mg/dL (0.2-1.0); Blood Urea Nitrogen 15 mg/dL (9-23); Calcium 9.4 mg/dL (8.5-10.1); Carbon Dioxide 26 mmol/L (20-30); Chloride 106 mmol/L (98-107); Glucose 86 mg/dL (74-106); Potassium 3.6 mmol/L (3.5-5.1); Sodium 140 mmol/L (136-145); Total Protein 6.9 g/dL (5.7-8.2)
[2023-11-20 16:51] LABS: INR 1.05 (0.9-1.15); Partial Thromboplastin Time 30.4 SEC (24.5-34.5)
[2023-11-20] MEDS: NAFCILLIN SOD 2GM 2 GM in SODIUM CHL 0.9% 100 ML IV SCH (18:00)
[2023-11-21] VITALS (7 sets, daily range): BP systolic 124–179; BP diastolic 59–85; PULSE 68–89; RESP 17–20; TEMP 98–99.1; O2SAT 93–96
[2023-11-21 06:20] LABS: Basophils # (auto) 0 10 ^3/uL (0-0.2); Basophils % (auto) 0.6 % (0.0-2.0); Eosinophils # (auto) 0.2 10 ^3/uL (0-0.8); Hematocrit 36.2 % (36.0-46.0); Lymphocytes # (auto) 0.9 10 ^3/uL (0.4-5.4); Lymphocytes % (auto) 14.7 % (10.0-50.0); Mean Corpuscular Hemoglobin 32.1 pg (28.0-32.0); Mean Corpuscular Hgb Conc. 33.2 g/dL (32.0-36.0); Mean Corpuscular Volume 96.7 fL (80.0-100.0); Monocytes # (auto) 0.6 10 ^3/uL (0-1.3); Monocytes % (auto) 10.2 % (0.0-12.0); Neutrophils # (auto) 4.2 10 ^3/uL (1.6-8.6); Neutrophils % (auto) 71.5 % (37.0-80.0); Red Blood Cells 3.75 10^6/uL (4.0-5.20); Red Cell Distribution Width 14.6 % (11.8-14.3); White Blood Cell 5.9 10^3/uL (4.4-10.8)
[2023-11-21 06:36] LABS: Alanine Aminotransferase 22 U/L (7-40); Albumin 3.7 g/dL (3.2-4.8); Alkaline Phosphatase 103 U/L (46-116); Anion Gap 9 (5-15); Aspartate Aminotransferase 13 U/L (13-40); BUN/Creatinine Ratio 10.9 (10.0-20.0); Bilirubin, Total 0.6 mg/dL (0.2-1.0); Blood Urea Nitrogen 14 mg/dL (9-23); Calcium 9.3 mg/dL (8.5-10.1); Carbon Dioxide 26 mmol/L (20-30); Chloride 107 mmol/L (98-107); Glucose 99 mg/dL (74-106); Potassium 3.8 mmol/L (3.5-5.1); Sodium 142 mmol/L (136-145); Total Protein 6.4 g/dL (5.7-8.2)
[2023-11-21] MEDS: LIDOCAINE 1% (LOCAL ANESTH.) PF 5ml SDV ID ONE (18:54)
[2023-11-21] MEDS: SODIUM CHLOR 0.9% PF (SALINE LOCK) 10ML VIAL/SYR IV SCH (22:00)
[2023-11-22] VITALS (7 sets, daily range): BP systolic 144–158; BP diastolic 50–80; PULSE 63–76; RESP 16–18; TEMP 97.9–98.7; O2SAT 94–98
[2023-11-22 06:31] LABS: Basophils # (auto) 0 10 ^3/uL (0-0.2); Basophils % (auto) 0.7 % (0.0-2.0); Eosinophils # (auto) 0.2 10 ^3/uL (0-0.8); Eosinophils % (auto) 3.3 % (0.0-7.0); Hematocrit 35.4 % (36.0-46.0); Hemoglobin 11.7 g/dL (12.2-16.2); Lymphocytes # (auto) 0.9 10 ^3/uL (0.4-5.4); Lymphocytes % (auto) 13.7 % (10.0-50.0); Mean Corpuscular Hemoglobin 31.7 pg (28.0-32.0); Mean Corpuscular Hgb Conc. 33.1 g/dL (32.0-36.0); Mean Corpuscular Volume 95.8 fL (80.0-100.0); Monocytes # (auto) 0.6 10 ^3/uL (0-1.3); Monocytes % (auto) 9.2 % (0.0-12.0); Neutrophils # (auto) 4.8 10 ^3/uL (1.6-8.6); Neutrophils % (auto) 73.1 % (37.0-80.0); Red Cell Distribution Width 14.6 % (11.8-14.3); White Blood Cell 6.5 10^3/uL (4.4-10.8)
[2023-11-22 06:49] LABS: Alanine Aminotransferase 19 U/L (7-40); Albumin 3.6 g/dL (3.2-4.8); Alkaline Phosphatase 95 U/L (46-116); Anion Gap 7 (5-15); Aspartate Aminotransferase 17 U/L (13-40); BUN/Creatinine Ratio 10.2 (10.0-20.0); Bilirubin, Total 0.6 mg/dL (0.2-1.0); Blood Urea Nitrogen 13 mg/dL (9-23); Calcium 9.2 mg/dL (8.5-10.1); Carbon Dioxide 29 mmol/L (20-30); Chloride 108 mmol/L (98-107); Glucose 90 mg/dL (74-106); Potassium 3.6 mmol/L (3.5-5.1); Sodium 144 mmol/L (136-145); Total Protein 6.3 g/dL (5.7-8.2)
[2023-11-22] MEDS ORDERED: PERCOT PO (17:22)
== END 2023-11-22 19:20 | disposition home health service (06) | DRG 871 ==
LOC: EDBD 21:56 → ER 21:56 → TELE 11-16 06:55 → TELE-EAST 11-16 17:58
PROVIDERS: ADMIT Internal Medicine; ATTEND Internal Medicine
PROC: 02HV33Z Insertion of Infusion Device into Superior Vena Cava, Percutaneous Approach (ICD-10-PCS; principal; 2023-11-21)
PROC: B548ZZA Ultrasonography of Superior Vena Cava, Guidance (ICD-10-PCS; 2023-11-21)
DX: A41.02 Sepsis due to Methicillin resistant Staphylococcus aureus (principal); N17.0 Acute kidney failure with tubular necrosis; M00.9 Pyogenic arthritis, unspecified; M25.562 Pain in left knee; I25.10 Atherosclerotic heart disease of native coronary artery without angina pectoris; I12.9 Hypertensive chronic kidney disease with stage 1 through stage 4 chronic kidney disease, or unspecified chronic kidney disease; N18.31 Chronic kidney disease, stage 3a; J45.909 Unspecified asthma, uncomplicated; M19.90 Unspecified osteoarthritis, unspecified site; Z88.1 Allergy status to other antibiotic agents; B95.62 Methicillin resistant Staphylococcus aureus infection as the cause of diseases classified elsewhere
CPT/HCPCS: 36415; 36569; 71045; 73721; 80053; 81001; 82565; 83605; 83690; 83880; 84484; 85025; 85379; 85610; 85730; 86141; 87040; 87077; 87081; 87186; 87205; 93005; G0378; J2405; J2543; J3490

== ENCOUNTER 2024-01-18 11:00 | Inpatient (IN) | payer MEDICARE, OTHER ==
[~2024-01-18] VITALS: Ht 165.1 cm; Wt 89.0 kg
[~2024-01-18 11:00] MED LIST changes: +CEPH500C PO; +PERCOT PO; -WARF-66 PO
[2024-01-18 11:25] VITALS: PULSE 92; RESP 18; O2SAT 92
[2024-01-18 11:54] LABS: Basophils # (auto) 0 10 ^3/uL (0-0.2); Basophils % (auto) 0.3 % (0.0-2.0); Eosinophils # (auto) 0 10 ^3/uL (0-0.8); Eosinophils % (auto) 0.2 % (0.0-7.0); Hematocrit 41.5 % (36.0-46.0); Hemoglobin 13.2 g/dL (12.2-16.2); Lymphocytes # (auto) 0.7 10 ^3/uL (0.4-5.4); Mean Corpuscular Hemoglobin 31.8 pg (28.0-32.0); Mean Corpuscular Hgb Conc. 31.9 g/dL (32.0-36.0); Mean Corpuscular Volume 99.8 fL (80.0-100.0); Monocytes # (auto) 0.8 10 ^3/uL (0-1.3); Neutrophils # (auto) 9.9 10 ^3/uL (1.6-8.6); Neutrophils % (auto) 86.5 % (37.0-80.0); Nucleated Red Blood Cells % 0.7 %; Red Blood Cells 4.16 10^6/uL (4.0-5.20); Red Cell Distribution Width 18.7 % (11.8-14.3); White Blood Cell 11.4 10^3/uL (4.4-10.8)
[2024-01-18 12:14] LABS: Alanine Aminotransferase 325 U/L (7-40); Alkaline Phosphatase 134 U/L (46-116); Anion Gap 11 (5-15); Aspartate Aminotransferase 70 U/L (13-40); BUN/Creatinine Ratio 20.1 (10.0-20.0); Blood Urea Nitrogen 28 mg/dL (9-23); Carbon Dioxide 28 mmol/L (20-30); Chloride 105 mmol/L (98-107); Glucose 117 mg/dL (74-106); Lipase 39 U/L (12-53); Potassium 3.2 mmol/L (3.5-5.1); Sodium 144 mmol/L (136-145)
[2024-01-18 12:15] LABS: Bilirubin, Total 1.2 mg/dL (0.2-1.0); Total Protein 7.2 g/dL (5.7-8.2)
[2024-01-18] MEDS ORDERED: VANCOMYCIN PER PHARMACY 0 MG IV SCH ×2 (18:00→18:15)
[2024-01-18] MEDS ORDERED: ALBUTEROL SULF HFA 90MCG INH 200DOSE IN PRN (18:15)
[2024-01-18] MEDS ORDERED: ACETAMINOPHEN 325 MG TAB PO PRN (18:15)
[2024-01-18] MEDS ORDERED: DOCUSATE SOD 100 MG CAP PO PRN (18:15)
[2024-01-18] MEDS ORDERED: HYDROcodone-ACET 5/325MG TAB PO PRN (18:15)
[2024-01-18] MEDS ORDERED: ALBUTEROL SULF 2.5 MG/0.5ML(0.5%) NEB SOLN NEB PRN (18:45)
[2024-01-18 18:49] VITALS: BP 139/75; PULSE 93; RESP 12; TEMP 98.2; O2SAT 100
[2024-01-18] MEDS ORDERED: VANCOMYCIN 1GM/200ML 200 ML IV ONE (19:45)
[2024-01-18 20:00] VITALS: PULSE 90; RESP 15; O2SAT 94
[2024-01-18 20:08] VITALS: O2SAT 100
[2024-01-18] MEDS: PIPERACILLIN-TAZOB 3.375GM 100 ML IV ONE (20:14)
[2024-01-18] MEDS: POTASSIUM EFFERVESENT TAB 25 MEQ PO ONE (20:29)
[2024-01-18] MEDS: FUROSEMIDE 40 MG/4 ML VIAL IV ONE (20:30)
[2024-01-18] MEDS: VANCOMYCIN 1GM/200ML 200 ML IV ONE (21:31)
[2024-01-18] MEDS: SODIUM CHLOR 0.9% PF (SALINE LOCK) 10ML VIAL/SYR IV SCH (22:00)
[2024-01-18] MEDS: QUEtiapine FUMARATE 25 MG TAB PO SCH (22:45)
[2024-01-18] MEDS: APIXABAN 5 MG TAB PO SCH (22:50)
[2024-01-19] MEDS: PIPERACILLIN-TAZO 4.5GM 100 ML IV SCH (02:37)
[2024-01-19 04:57] LABS: Creatinine, Urine 79.48 mg/dL (30.0-125.0)
[2024-01-19] MEDS: FUROSEMIDE 40 MG/4 ML VIAL IV SCH (06:24)
[2024-01-19 06:26] VITALS: O2SAT 98
[2024-01-19 08:10] VITALS: PULSE 84; RESP 16; O2SAT 98
[2024-01-19 09:30] LABS: Basophils # (auto) 0 10 ^3/uL (0-0.2); Basophils % (auto) 0.2 % (0.0-2.0); Eosinophils # (auto) 0.2 10 ^3/uL (0-0.8); Eosinophils % (auto) 1.4 % (0.0-7.0); Hematocrit 38.7 % (36.0-46.0); Hemoglobin 12.1 g/dL (12.2-16.2); Lymphocytes # (auto) 0.9 10 ^3/uL (0.4-5.4); Mean Corpuscular Hemoglobin 31.2 pg (28.0-32.0); Mean Corpuscular Hgb Conc. 31.2 g/dL (32.0-36.0); Mean Corpuscular Volume 100.2 fL (80.0-100.0); Monocytes # (auto) 0.9 10 ^3/uL (0-1.3); Monocytes % (auto) 8.7 % (0.0-12.0); Neutrophils # (auto) 8.7 10 ^3/uL (1.6-8.6); Neutrophils % (auto) 81.7 % (37.0-80.0); Nucleated Red Blood Cells % 0.2 %; Red Blood Cells 3.87 10^6/uL (4.0-5.20); Red Cell Distribution Width 19.3 % (11.8-14.3); White Blood Cell 10.7 10^3/uL (4.4-10.8)
[2024-01-19 09:47] LABS: Alanine Aminotransferase 210 U/L (7-40); Anion Gap 7 (5-15); Aspartate Aminotransferase 53 U/L (13-40); BUN/Creatinine Ratio 20.5 (10.0-20.0); Blood Urea Nitrogen 24 mg/dL (9-23); Calcium 9.5 mg/dL (8.5-10.1); Carbon Dioxide 31 mmol/L (20-30); Chloride 107 mmol/L (98-107); Cholesterol 229 mg/dL (< 200); Glucose 110 mg/dL (74-106); HDL Cholesterol 37 mg/dL (40-59); LDL Cholesterol 168 mg/dL (< 100); Potassium 4.1 mmol/L (3.5-5.1); Sodium 145 mmol/L (136-145); Triglycerides 123 mg/dL (< 150)
[2024-01-19] MEDS: AMIODARONE HCL 200 MG TAB PO SCH (11:07)
[2024-01-19] MEDS: ONDANSETRON HCL 4 MG/2 ML VIAL IV PRN (12:18)
[2024-01-19] MEDS: HYDROmorphone HCL 2 MG/ML VL/or syr IV PRN (12:20)
[2024-01-19] MEDS: VANCOMYCIN 1GM/200ML 200 ML IV SCH (15:36)
[2024-01-19 17:24] LABS: Alanine Aminotransferase 223 U/L (7-40); Albumin 3.4 g/dL (3.2-4.8); Alkaline Phosphatase 111 U/L (46-116); Anion Gap 13 (5-15); Aspartate Aminotransferase 68 U/L (13-40); BUN/Creatinine Ratio 13.4 (10.0-20.0); Bilirubin, Total 1.1 mg/dL (0.2-1.0); Blood Urea Nitrogen 16 mg/dL (9-23); Calcium 9.4 mg/dL (8.7-10.4); Carbon Dioxide 24 mmol/L (20-30); Chloride 106 mmol/L (98-107); Glucose 145 mg/dL (74-106); Potassium 4.5 mmol/L (3.5-5.1); Sodium 143 mmol/L (136-145); Total Protein 6.6 g/dL (5.7-8.2)
[2024-01-19] MEDS: AMPICILLIN & SULBACTAM SODIUM 3 GM in SODIUM CHL 0.9% 100 ML IV SCH (17:32)
[2024-01-19 17:40] LABS: Erythrocyte Sedimentation Rate 32 mm/hr (0-20)
[2024-01-19 18:00] VITALS: O2SAT 98
[2024-01-19] MEDS: METOPROLOL TARTRATE 25 MG TAB PO SCH (22:48)
[2024-01-19] MEDS: SACUBITRIL-VALSARTAN 24mg/26mg TAB PO SCH (22:49)
[2024-01-20] VITALS (10 sets, daily range): BP systolic 123–144; BP diastolic 72–75; PULSE 78–95; RESP 12–20; TEMP 97.2–98; O2SAT 94–99
[2024-01-20 04:58] LABS: Basophils # (auto) 0 10 ^3/uL (0-0.2); Basophils % (auto) 0.1 % (0.0-2.0); Eosinophils # (auto) 0.2 10 ^3/uL (0-0.8); Lymphocytes # (auto) 0.6 10 ^3/uL (0.4-5.4); Monocytes # (auto) 0.7 10 ^3/uL (0-1.3); Neutrophils # (auto) 7.4 10 ^3/uL (1.6-8.6)
[2024-01-20 04:59] LABS: Anion Gap 7 (5-15); Carbon Dioxide 33 mmol/L (20-30); Chloride 106 mmol/L (98-107); Eosinophils % (auto) 1.8 % (0.0-7.0); Hematocrit 36.9 % (36.0-46.0); Hemoglobin 11.4 g/dL (12.2-16.2); Mean Corpuscular Hemoglobin 31.5 pg (28.0-32.0); Mean Corpuscular Volume 101.5 fL (80.0-100.0); Monocytes % (auto) 7.7 % (0.0-12.0); Neutrophils % (auto) 83.4 % (37.0-80.0); Nucleated Red Blood Cells % 0.3 %; Potassium 3.8 mmol/L (3.5-5.1); Red Blood Cells 3.63 10^6/uL (4.0-5.20); Red Cell Distribution Width 19.4 % (11.8-14.3); Sodium 146 mmol/L (136-145); White Blood Cell 8.8 10^3/uL (4.4-10.8)
[2024-01-20 05:00] LABS: Calcium 9.4 mg/dL (8.7-10.4)
[2024-01-20 05:05] LABS: Blood Urea Nitrogen 24 mg/dL (9-23); Glucose 102 mg/dL (74-106)
[2024-01-20] MEDS ORDERED: CLINIMIX PER PHARMACY 0 ML IV SCH (07:45)
[2024-01-20] MEDS ORDERED: MORPHINE SULFATE INJ 2 MG/ml SYRG IV PRN (08:30)
[2024-01-20] MEDS ORDERED: ACETAMINOPHEN 500 MG TAB PO PRN (08:30)
[2024-01-20] MEDS ORDERED: HALOPERIDOL LACTATE 5 MG/ML INJ VIAL IV PRN (09:15)
[2024-01-20] MEDS: HALOPERIDOL LACTATE 5 MG/ML INJ VIAL IV PRN (09:43)
[2024-01-20] MEDS: AMIODARONE HCL 200 MG TAB PO SCH (10:00)
[2024-01-20] MEDS: EMPAGLIFLOZIN 10 MG TAB PO SCH (10:53)
[2024-01-20] MEDS: METOPROLOL TARTRATE 25 MG TAB PO SCH (10:55)
[2024-01-21] VITALS (10 sets, daily range): BP systolic 106–141; BP diastolic 57–76; PULSE 57–95; RESP 19–23; TEMP 97.1–98; O2SAT 92–98
[2024-01-21 06:01] LABS: Basophils # (auto) 0 10 ^3/uL (0-0.2); Basophils % (auto) 0.2 % (0.0-2.0); Eosinophils # (auto) 0.2 10 ^3/uL (0-0.8); Eosinophils % (auto) 1.8 % (0.0-7.0); Hematocrit 36.7 % (36.0-46.0); Hemoglobin 11.4 g/dL (12.2-16.2); Lymphocytes # (auto) 0.5 10 ^3/uL (0.4-5.4); Lymphocytes % (auto) 5.2 % (10.0-50.0); Mean Corpuscular Hemoglobin 31.4 pg (28.0-32.0); Mean Corpuscular Hgb Conc. 31.1 g/dL (32.0-36.0); Mean Corpuscular Volume 101.1 fL (80.0-100.0); Monocytes # (auto) 0.8 10 ^3/uL (0-1.3); Monocytes % (auto) 8.5 % (0.0-12.0); Neutrophils % (auto) 84.3 % (37.0-80.0); Nucleated Red Blood Cells % 0.6 %; Red Blood Cells 3.63 10^6/uL (4.0-5.20); Red Cell Distribution Width 18.9 % (11.8-14.3); White Blood Cell 9.5 10^3/uL (4.4-10.8)
[2024-01-21 06:09] LABS: Anion Gap 9 (5-15); Carbon Dioxide 29 mmol/L (20-30); Chloride 108 mmol/L (98-107); Sodium 146 mmol/L (136-145)
[2024-01-21 06:10] LABS: Calcium 9.2 mg/dL (8.5-10.1)
[2024-01-21 06:15] LABS: BUN/Creatinine Ratio 18.5 (10.0-20.0); Blood Urea Nitrogen 23 mg/dL (9-23); Glucose 79 mg/dL (74-106)
[2024-01-21] MEDS: HYDROcodone-ACET 5/325MG TAB PO PRN (09:15)
[2024-01-21] MEDS: FUROSEMIDE 40 MG/4 ML VIAL IV SCH (09:16)
[2024-01-21] MEDS: SPIRONOLACTONE 25 MG TAB PO SCH (09:16)
[2024-01-21 12:31] LABS: Basophils # (auto) 0 10 ^3/uL (0-0.2); Eosinophils # (auto) 0.1 10 ^3/uL (0-0.8); Eosinophils % (auto) 1.1 % (0.0-7.0); Monocytes # (auto) 0.9 10 ^3/uL (0-1.3)
[2024-01-21 12:33] LABS: Basophils % (auto) 0.1 % (0.0-2.0); Hematocrit 36.5 % (36.0-46.0); Hemoglobin 11.3 g/dL (12.2-16.2); Lymphocytes # (auto) 0.4 10 ^3/uL (0.4-5.4); Lymphocytes % (auto) 3.5 % (10.0-50.0); Mean Corpuscular Hemoglobin 31.3 pg (28.0-32.0); Mean Corpuscular Volume 101.2 fL (80.0-100.0); Monocytes % (auto) 7.4 % (0.0-12.0); Neutrophils # (auto) 10.8 10 ^3/uL (1.6-8.6); Neutrophils % (auto) 87.9 % (37.0-80.0); Nucleated Red Blood Cells % 0.2 %; Red Blood Cells 3.61 10^6/uL (4.0-5.20); White Blood Cell 12.3 10^3/uL (4.4-10.8)
[2024-01-21] MEDS ORDERED: VANCOMYCIN PER PHARMACY 0 MG IV SCH (17:00)
[2024-01-22] VITALS (12 sets, daily range): BP systolic 103–158; BP diastolic 57–88; PULSE 80–102; RESP 16–20; TEMP 97.1–98.2; O2SAT 92–99
[2024-01-22 05:30] LABS: Anion Gap 7 (5-15); Carbon Dioxide 29 mmol/L (20-30); Chloride 106 mmol/L (98-107); Potassium 4.1 mmol/L (3.5-5.1); Sodium 142 mmol/L (136-145)
[2024-01-22 05:32] LABS: Calcium 9.4 mg/dL (8.7-10.4)
[2024-01-22 05:36] LABS: BUN/Creatinine Ratio 21.3 (10.0-20.0); Blood Urea Nitrogen 30 mg/dL (9-23); Glucose 124 mg/dL (74-106)
[2024-01-22] MEDS: ERTAPENEM SOD INJ 1 GM in SODIUM CHL 0.9% 50 ML IV SCH (10:00)
[2024-01-22 12:32] LABS: INR 1.4 (0.9-1.15); Partial Thromboplastin Time 32.6 SEC (24.5-34.5); Prothrombin Time 14.5 sec (9.3-11.8)
[2024-01-22] MEDS ORDERED: POTA-36 PO (15:45)
[2024-01-22] MEDS ORDERED: BUME2TAB5 PO (15:45)
[2024-01-22] MEDS ORDERED: LATA0.0020 EACHEYE (15:45)
[2024-01-22] MEDS: LIDOCAINE 1% (LOCAL ANESTH.) PF 5ml SDV ID ONE (18:10)
[2024-01-22] MEDS: SODIUM CHLOR 0.9% PF (SALINE LOCK) 10ML VIAL/SYR IV SCH (22:00)
[2024-01-23] VITALS (10 sets, daily range): BP systolic 121–141; BP diastolic 60–92; PULSE 69–84; RESP 17–20; TEMP 97.5–98.3; O2SAT 97–99
[2024-01-23 06:32] LABS: Basophils # (auto) 0 10 ^3/uL (0-0.2); Basophils % (auto) 0.4 % (0.0-2.0); Eosinophils # (auto) 0.3 10 ^3/uL (0-0.8); Eosinophils % (auto) 2.8 % (0.0-7.0); Hematocrit 35.3 % (36.0-46.0); Hemoglobin 11.2 g/dL (12.2-16.2); Lymphocytes # (auto) 0.8 10 ^3/uL (0.4-5.4); Lymphocytes % (auto) 6.8 % (10.0-50.0); Mean Corpuscular Hgb Conc. 31.8 g/dL (32.0-36.0); Mean Corpuscular Volume 100.4 fL (80.0-100.0); Monocytes # (auto) 0.9 10 ^3/uL (0-1.3); Monocytes % (auto) 7.3 % (0.0-12.0); Neutrophils # (auto) 9.8 10 ^3/uL (1.6-8.6); Neutrophils % (auto) 82.7 % (37.0-80.0); Nucleated Red Blood Cells % 0.3 %; Red Blood Cells 3.52 10^6/uL (4.0-5.20); Red Cell Distribution Width 18.7 % (11.8-14.3); White Blood Cell 11.8 10^3/uL (4.4-10.8)
[2024-01-23 06:33] LABS: Calcium 9.4 mg/dL (8.7-10.4); Chloride 103 mmol/L (98-107); Potassium 4.1 mmol/L (3.5-5.1); Sodium 140 mmol/L (136-145)
[2024-01-23 06:34] LABS: Anion Gap 10 (5-15); Carbon Dioxide 27 mmol/L (20-30)
[2024-01-23 06:39] LABS: BUN/Creatinine Ratio 20.9 (10.0-20.0); Blood Urea Nitrogen 31 mg/dL (9-23); Glucose 114 mg/dL (74-106)
[2024-01-23] MEDS: AMIODARONE HCL 200 MG TAB PO SCH (10:07)
[2024-01-23] MEDS: FUROSEMIDE 20 MG TAB PO SCH (10:08)
[2024-01-23] MEDS: ALBUTEROL SULF 2.5 MG/0.5ML(0.5%) NEB SOLN NEB PRN (13:53)
[2024-01-24] VITALS (16 sets, daily range): BP systolic 97–131; BP diastolic 68–94; PULSE 66–83; RESP 11–20; TEMP 97–98; O2SAT 94–99
[2024-01-24 05:48] LABS: Basophils # (auto) 0 10 ^3/uL (0-0.2); Basophils % (auto) 0.4 % (0.0-2.0); Eosinophils # (auto) 0.2 10 ^3/uL (0-0.8); Eosinophils % (auto) 1.7 % (0.0-7.0); Hematocrit 36.8 % (36.0-46.0); Hemoglobin 11.6 g/dL (12.2-16.2); Lymphocytes # (auto) 0.8 10 ^3/uL (0.4-5.4); Mean Corpuscular Hemoglobin 31.6 pg (28.0-32.0); Mean Corpuscular Hgb Conc. 31.4 g/dL (32.0-36.0); Mean Corpuscular Volume 100.8 fL (80.0-100.0); Monocytes # (auto) 0.8 10 ^3/uL (0-1.3); Monocytes % (auto) 7.9 % (0.0-12.0); Neutrophils # (auto) 8.1 10 ^3/uL (1.6-8.6); Nucleated Red Blood Cells % 0.5 %; Red Blood Cells 3.65 10^6/uL (4.0-5.20); Red Cell Distribution Width 18.9 % (11.8-14.3); White Blood Cell 9.9 10^3/uL (4.4-10.8)
[2024-01-24 06:06] LABS: Alanine Aminotransferase 84 U/L (7-40); Albumin 3.5 g/dL (3.2-4.8); Alkaline Phosphatase 120 U/L (46-116); Anion Gap 9 (5-15); Aspartate Aminotransferase 36 U/L (13-40); BUN/Creatinine Ratio 21.5 (10.0-20.0); Blood Urea Nitrogen 34 mg/dL (9-23); Calcium 9.4 mg/dL (8.5-10.1); Carbon Dioxide 28 mmol/L (20-30); Chloride 104 mmol/L (98-107); Glucose 117 mg/dL (74-106); Potassium 4.1 mmol/L (3.5-5.1); Sodium 141 mmol/L (136-145)
[2024-01-24 06:07] LABS: Bilirubin, Total 0.8 mg/dL (0.2-1.0); Total Protein 6.2 g/dL (5.7-8.2)
[2024-01-24] MEDS: FUROSEMIDE 20 MG TAB PO ONE (09:48)
[2024-01-24] MEDS: FUROSEMIDE 40 MG/4 ML VIAL IV SCH (12:15)
[2024-01-24] MEDS: ADENOSINE 75 MG in GIVE UN-DILUTED 0 ML IV ONE (15:17)
[2024-01-24] MEDS: ANGIOMAX 250 MG VIAL IV ONE (16:25)
[2024-01-24] MEDS: SODIUM CHL 0.9% 0 ML ONE (16:25)
[2024-01-24] MEDS: LIDOCAINE 2%HCL (LOCAL ANESTH.) INJ 20ML MDV ONE (16:43)
[2024-01-24] MEDS: IODIXANOL 320MG/ML 100ML BTL IV ONE (16:43)
[2024-01-24] MEDS: fentaNYL CITRATE 100 MCG/2 ML VL ONE (16:43)
[2024-01-24] MEDS: MIDAZOLAM HCL 2MG/2ML 2ml VIAL (1mg/ml) ONE (16:44)
[2024-01-24] MEDS ORDERED: FUROSEMIDE 20 MG TAB PO SCH (18:00)
[2024-01-24] MEDS: DOPamine 1600MCG/ML D5W 250 ML IV SCH (20:16)
[2024-01-25] VITALS (9 sets, daily range): BP systolic 108–142; BP diastolic 59–85; PULSE 59–91; RESP 18–20; TEMP 97.4–99.1; O2SAT 91–99
[2024-01-25 05:24] LABS: Basophils # (auto) 0 10 ^3/uL (0-0.2); Basophils % (auto) 0.4 % (0.0-2.0); Eosinophils # (auto) 0.1 10 ^3/uL (0-0.8); Eosinophils % (auto) 1.4 % (0.0-7.0); Hematocrit 37.3 % (36.0-46.0); Hemoglobin 11.8 g/dL (12.2-16.2); Lymphocytes # (auto) 0.8 10 ^3/uL (0.4-5.4); Lymphocytes % (auto) 8.4 % (10.0-50.0); Mean Corpuscular Hemoglobin 31.9 pg (28.0-32.0); Mean Corpuscular Hgb Conc. 31.7 g/dL (32.0-36.0); Mean Corpuscular Volume 100.6 fL (80.0-100.0); Monocytes # (auto) 0.7 10 ^3/uL (0-1.3); Monocytes % (auto) 8.1 % (0.0-12.0); Neutrophils # (auto) 7.5 10 ^3/uL (1.6-8.6); Neutrophils % (auto) 81.7 % (37.0-80.0); Nucleated Red Blood Cells % 0.6 %; Red Blood Cells 3.71 10^6/uL (4.0-5.20); Red Cell Distribution Width 19.1 % (11.8-14.3); White Blood Cell 9.2 10^3/uL (4.4-10.8)
[2024-01-25 05:43] LABS: Anion Gap 9 (5-15); Carbon Dioxide 27 mmol/L (20-30); Chloride 105 mmol/L (98-107); Sodium 141 mmol/L (136-145)
[2024-01-25 05:44] LABS: Calcium 9.4 mg/dL (8.7-10.4)
[2024-01-25 05:49] LABS: BUN/Creatinine Ratio 23.4 (10.0-20.0); Blood Urea Nitrogen 36 mg/dL (9-23); Glucose 88 mg/dL (74-106)
[2024-01-25 06:23] LABS: Urine Bacteria None Seen /hpf (None Seen)
[2024-01-25 07:06] LABS: Protein, Urine 74.6 mg/dL (0.0-11.9)
[2024-01-25 07:09] LABS: Creatinine, Urine 58.83 mg/dL (30.0-125.0)
[2024-01-25 07:15] LABS: Urine Blood 3+ /uL (Negative); Urine Clarity Clear (Clear); Urine Color Yellow (Yellow); Urine Protein, UAD 1+ (Negative); Urine Specific Gravity 1.024 (1.001-1.035); Urine Urobilinogen Normal (Negative); Urine WBC 6 /hpf (0 - 5); Urine pH 5.5 (5.0-9.0)
[2024-01-25] MEDS: CLOPIDOGREL BISULFATE 75 MG TAB PO SCH (09:15)
[2024-01-25] MEDS: DOBUTamine 1000MCG/ML 250 ML IV SCH (11:10)
[2024-01-25] MEDS ORDERED: ATORVASTATIN 20 MG TAB PO SCH (22:00)
[2024-01-25] MEDS: BACLOFEN 10 MG TAB PO PRN (22:27)
[2024-01-26] VITALS (11 sets, daily range): BP systolic 118–140; BP diastolic 61–77; PULSE 60–100; RESP 18–20; TEMP 97.5–98.4; O2SAT 90–99
[2024-01-26] MEDS: FUROSEMIDE 40 MG TAB PO SCH (09:14)
[2024-01-27] VITALS (13 sets, daily range): BP systolic 107–138; BP diastolic 51–93; PULSE 61–100; RESP 17–20; TEMP 97.6–98.3; O2SAT 91–99
[2024-01-27 06:28] LABS: Anion Gap 8 (5-15); Carbon Dioxide 29 mmol/L (20-30); Chloride 104 mmol/L (98-107); Potassium 3.9 mmol/L (3.5-5.1); Sodium 141 mmol/L (136-145)
[2024-01-27 06:29] LABS: Calcium 9.4 mg/dL (8.5-10.1)
[2024-01-27 06:34] LABS: BUN/Creatinine Ratio 18.1 (10.0-20.0); Blood Urea Nitrogen 23 mg/dL (9-23); Glucose 89 mg/dL (74-106)
[2024-01-27] MEDS ORDERED: FURO40TA4 PO (13:52)
[2024-01-27] MEDS ORDERED: AMIO200T33 PO (13:52)
[2024-01-27] MEDS ORDERED: CLOP75TA70 PO (13:52)
[2024-01-27] MEDS ORDERED: ATOR20TA50 PO (13:52)
[2024-01-27] MEDS: MELATONIN 5 MG TAB ONE (22:43)
[2024-01-28] VITALS (8 sets, daily range): BP systolic 107–136; BP diastolic 51–86; PULSE 59–92; RESP 16–20; TEMP 36.4; O2SAT 91–97
[2024-01-28 07:21] LABS: Chloride 106 mmol/L (98-107); Potassium 4.2 mmol/L (3.5-5.1); Sodium 143 mmol/L (136-145)
[2024-01-28 07:22] LABS: Anion Gap 7 (5-15); Calcium 9.5 mg/dL (8.5-10.1); Carbon Dioxide 30 mmol/L (20-30)
[2024-01-28 07:27] LABS: BUN/Creatinine Ratio 15.2 (10.0-20.0); Blood Urea Nitrogen 21 mg/dL (9-23); Glucose 100 mg/dL (74-106)
[2024-01-28] MEDS: METOPROLOL TARTRATE 25 MG TAB PO SCH (10:29)
[2024-01-28] MEDS: EMPAGLIFLOZIN 10 MG TAB PO SCH (10:30)
[2024-01-28] MEDS ORDERED: EMPA1TAB PO (13:12)
[2024-01-28] MEDS ORDERED: METO25TA36 PO (13:12)
[2024-01-28] MEDS ORDERED: FUROSEMIDE 40 MG TAB PO SCH (18:00)
[2024-01-28] MEDS ORDERED: MELATONIN 5 MG TAB PO ONE (22:00)
== END 2024-01-28 17:30 | disposition home health service (06) | DRG 871 ==
LOC: ER 11:00 → TELE 18:16 → TELE-CENTR 01-20 15:05
PROVIDERS: ADMIT Nurse Practitioner Acute Care; ATTEND Nurse Practitioner Acute Care
PROC: 02HV33Z Insertion of Infusion Device into Superior Vena Cava, Percutaneous Approach (ICD-10-PCS; 2024-01-22)
PROC: B548ZZA Ultrasonography of Superior Vena Cava, Guidance (ICD-10-PCS; 2024-01-22)
PROC: 4A023N7 Measurement of Cardiac Sampling and Pressure, Left Heart, Percutaneous Approach (ICD-10-PCS; principal; 2024-01-24)
PROC: B211YZZ Fluoroscopy of Multiple Coronary Arteries using Other Contrast (ICD-10-PCS; 2024-01-24)
PROC: B213YZZ Fluoroscopy of Multiple Coronary Artery Bypass Grafts using Other Contrast (ICD-10-PCS; 2024-01-24)
DX: A41.59 Other Gram-negative sepsis (principal); G93.41 Metabolic encephalopathy; I21.A1 Myocardial infarction type 2; J96.01 Acute respiratory failure with hypoxia; I50.23 Acute on chronic systolic (congestive) heart failure; I13.0 Hypertensive heart and chronic kidney disease with heart failure and stage 1 through stage 4 chronic kidney disease, or unspecified chronic kidney disease; L03.116 Cellulitis of left lower limb; N17.9 Acute kidney failure, unspecified; M00.9 Pyogenic arthritis, unspecified; L97.929 Non-pressure chronic ulcer of unspecified part of left lower leg with unspecified severity; I25.810 Atherosclerosis of coronary artery bypass graft(s) without angina pectoris; N18.31 Chronic kidney disease, stage 3a; R74.01 Elevation of levels of liver transaminase levels; E66.01 Morbid (severe) obesity due to excess calories; E78.5 Hyperlipidemia, unspecified; E87.6 Hypokalemia; I48.0 Paroxysmal atrial fibrillation; M06.9 Rheumatoid arthritis, unspecified; I25.10 Atherosclerotic heart disease of native coronary artery without angina pectoris; J45.909 Unspecified asthma, uncomplicated; M13.862 Other specified arthritis, left knee; R80.9 Proteinuria, unspecified; Z90.49 Acquired absence of other specified parts of digestive tract; Z68.32 Body mass index [BMI] 32.0-32.9, adult; Z86.718 Personal history of other venous thrombosis and embolism; Z95.1 Presence of aortocoronary bypass graft; Z79.01 Long term (current) use of anticoagulants; Z88.1 Allergy status to other antibiotic agents; Z79.899 Other long term (current) drug therapy; Z79.84 Long term (current) use of oral hypoglycemic drugs; W18.39XA Other fall on same level, initial encounter; Y93.89 Activity, other specified; Y92.89 Other specified places as the place of occurrence of the external cause; Y99.8 Other external cause status; R60.9 Edema, unspecified; R94.39 Abnormal result of other cardiovascular function study
CPT/HCPCS: 36415; 36569; 70450; 71045; 73700; 74176; 76700; 78452; 80048; 80053; 80061; 80202; 81001; 82140; 82570; 83036; 83605; 83690; 83735; 83880; 84156; 84300; 84443; 84450; 84460; 84484; 85025; 85610; 85652; 85730; 87040; 87077; 87186; 87205; 93005; 93017; 93306; 93925; 93970; 94640; 97110; 97116; 97163; 97530; 99152; G0378; J0153; J1335; J2250; J2405; J2543; Q9967

== ENCOUNTER 2024-02-01 22:52 | Inpatient (IN) | payer MEDICARE, OTHER ==
[~2024-02-01] VITALS: Ht 162.6 cm; Wt 96.9 kg
[~2024-02-01 22:52] MED LIST changes: -AMIO100T3 PO; +AMIO200T33 PO; +ATOR20TA50 PO; +BUME2TAB5 PO; +CLOP75TA70 PO; +EMPA1TAB PO; +ERTA1INJ IJ; -FURO40TA4 PO; +LATA0.0020 EACHEYE; +METO25TA36 PO; +POTA-36 PO
[2024-02-01 23:49] LABS: Basophils # (auto) 0.1 10 ^3/uL (0-0.2); Eosinophils # (auto) 0.4 10 ^3/uL (0-0.8); Hemoglobin 11.2 g/dL (12.2-16.2); Lymphocytes # (auto) 0.8 10 ^3/uL (0.4-5.4)
[2024-02-01 23:51] LABS: Eosinophils % (auto) 6.2 % (0.0-7.0); Hematocrit 36.2 % (36.0-46.0); Lymphocytes % (auto) 12.9 % (10.0-50.0); Mean Corpuscular Hemoglobin 31.6 pg (28.0-32.0); Mean Corpuscular Hgb Conc. 30.9 g/dL (32.0-36.0); Mean Corpuscular Volume 102.2 fL (80.0-100.0); Monocytes # (auto) 0.9 10 ^3/uL (0-1.3); Monocytes % (auto) 14.8 % (0.0-12.0); Neutrophils # (auto) 3.9 10 ^3/uL (1.6-8.6); Neutrophils % (auto) 65.1 % (37.0-80.0); Nucleated Red Blood Cells % 0.5 %; Red Blood Cells 3.55 10^6/uL (4.0-5.20); Red Cell Distribution Width 18.8 % (11.8-14.3); White Blood Cell 5.9 10^3/uL (4.4-10.8)
[2024-02-02] LABS: Alanine Aminotransferase 51 U/L (7-40); Albumin 3.5 g/dL (3.2-4.8); Alkaline Phosphatase 171 U/L (46-116); Anion Gap 9 (5-15); Aspartate Aminotransferase 29 U/L (13-40); BUN/Creatinine Ratio 11.5 (10.0-20.0); Blood Urea Nitrogen 22 mg/dL (9-23); Calcium 8.8 mg/dL (8.7-10.4); Carbon Dioxide 25 mmol/L (20-30); Chloride 107 mmol/L (98-107); Glucose 122 mg/dL (74-106); Lipase 52 U/L (12-53); Potassium 4.5 mmol/L (3.5-5.1); Sodium 141 mmol/L (136-145)
[2024-02-02 00:01] LABS: Bilirubin, Total 0.7 mg/dL (0.2-1.0); Total Protein 6.4 g/dL (5.7-8.2)
[2024-02-02] MEDS: FUROSEMIDE 40 MG/4 ML VIAL IV ONE (01:15)
[2024-02-02] MEDS: ALBUMIN 25% 100 ML IV ONE (02:23)
[2024-02-02] MEDS ORDERED: ACETAMINOPHEN 325 MG TAB PO PRN (05:00)
[2024-02-02] MEDS ORDERED: ONDANSETRON HCL 4 MG/2 ML VIAL IV PRN (05:00)
[2024-02-02] MEDS: ASPirin 81 mg TAB PO ONE (05:17)
[2024-02-02] MEDS ORDERED: NITROGLYCERIN 0.4 MG SL TAB SL PRN (05:30)
[2024-02-02] MEDS ORDERED: MORPHINE SULFATE INJ 2 MG/ml SYRG IV PRN (05:30)
[2024-02-02] MEDS ORDERED: VANCOMYCIN PER PHARMACY 0 MG IV SCH (05:30)
[2024-02-02] MEDS: cefTRIAXone 1GM/50ML D5W 50 ML IV SCH (06:07)
[2024-02-02] MEDS: SODIUM CHLOR 0.9% PF (SALINE LOCK) 10ML VIAL/SYR IV SCH (06:08)
[2024-02-02 06:25] VITALS: PULSE 82; RESP 20
[2024-02-02 07:06] LABS: Urine Bacteria None Seen /hpf (None Seen)
[2024-02-02 07:22] LABS: Urine Blood 3+ /uL (Negative); Urine Budding Yeast MANY /hpf (None Seen); Urine Clarity Turbid (Clear); Urine Color Yellow (Yellow); Urine Hyaline Cast FEW /lpf (0 - 2); Urine Protein, UAD 1+ (Negative); Urine Specific Gravity 1.017 (1.001-1.035); Urine Urobilinogen 2 mg/dL (Negative); Urine WBC 414 /hpf (0 - 5); Urine WBC Clumps PRESENT /hpf (None Seen); Urine pH 5.5 (5.0-9.0)
[2024-02-02 07:32] LABS: Basophils # (auto) 0.1 10 ^3/uL (0-0.2); Hemoglobin 11.1 g/dL (12.2-16.2); Lymphocytes # (auto) 0.9 10 ^3/uL (0.4-5.4)
[2024-02-02 07:34] LABS: Basophils % (auto) 1.1 % (0.0-2.0); Eosinophils # (auto) 0.4 10 ^3/uL (0-0.8); Eosinophils % (auto) 5.8 % (0.0-7.0); Hematocrit 35.8 % (36.0-46.0); Lymphocytes % (auto) 13.7 % (10.0-50.0); Mean Corpuscular Hemoglobin 31.4 pg (28.0-32.0); Mean Corpuscular Volume 101.3 fL (80.0-100.0); Monocytes % (auto) 15.4 % (0.0-12.0); Neutrophils # (auto) 4.2 10 ^3/uL (1.6-8.6); Nucleated Red Blood Cells % 0.6 %; Red Blood Cells 3.53 10^6/uL (4.0-5.20); Red Cell Distribution Width 18.3 % (11.8-14.3); White Blood Cell 6.6 10^3/uL (4.4-10.8)
[2024-02-02 07:53] LABS: Alanine Aminotransferase 47 U/L (7-40); Albumin 3.9 g/dL (3.2-4.8); Alkaline Phosphatase 172 U/L (46-116); Anion Gap 9 (5-15); Aspartate Aminotransferase 28 U/L (13-40); BUN/Creatinine Ratio 11.2 (10.0-20.0); Blood Urea Nitrogen 23 mg/dL (9-23); Calcium 9.4 mg/dL (8.5-10.1); Carbon Dioxide 27 mmol/L (20-30); Chloride 105 mmol/L (98-107); Glucose 99 mg/dL (74-106); Potassium 4.4 mmol/L (3.5-5.1); Sodium 141 mmol/L (136-145)
[2024-02-02 07:54] LABS: Bilirubin, Total 0.7 mg/dL (0.2-1.0); Total Protein 6.6 g/dL (5.7-8.2)
[2024-02-02 08:00] VITALS: PULSE 64; RESP 16; O2SAT 96
[2024-02-02] MEDS: VANCOMYCIN 1GM/200ML 200 ML IV ONE (08:11)
[2024-02-02] MEDS: FUROSEMIDE 40 MG/4 ML VIAL IV SCH (10:00)
[2024-02-02] MEDS: CARVEDILOL 3.125 MG TAB PO SCH (10:00)
[2024-02-02] MEDS: ASPirin 81 mg TAB PO SCH (11:42)
[2024-02-02] MEDS: ERTAPENEM SOD INJ 1 GM in SODIUM CHL 0.9% 50 ML IV ONE (13:15)
[2024-02-02] MEDS: LACTULOSE 20Gm/30ML SOLN PO SCH (13:30)
[2024-02-02] MEDS: DOBUTamine 1000MCG/ML 250 ML IV SCH (17:47)
[2024-02-02] MEDS: FUROSEMIDE 20 MG/2 ML VIAL IV SCH (18:00)
[2024-02-02 19:30] VITALS: PULSE 86; RESP 19; O2SAT 89
[2024-02-02] MEDS: AMIODARONE HCL 200 MG TAB PO SCH (22:18)
[2024-02-02] MEDS: HYDROcodone-ACET 5/325MG TAB PO PRN (22:19)
[2024-02-02] MEDS: APIXABAN 5 MG TAB PO SCH (22:19)
[2024-02-03] VITALS (8 sets, daily range): BP systolic 116–151; BP diastolic 55–84; PULSE 70–82; RESP 18–20; TEMP 97.9–98.6; O2SAT 94–100
[2024-02-03 05:45] LABS: Basophils # (auto) 0 10 ^3/uL (0-0.2); Basophils % (auto) 0.9 % (0.0-2.0); Eosinophils # (auto) 0.3 10 ^3/uL (0-0.8); Eosinophils % (auto) 5.8 % (0.0-7.0); Hematocrit 31.4 % (36.0-46.0); Hemoglobin 9.8 g/dL (12.2-16.2); Lymphocytes # (auto) 0.6 10 ^3/uL (0.4-5.4); Lymphocytes % (auto) 10.8 % (10.0-50.0); Mean Corpuscular Hemoglobin 31.4 pg (28.0-32.0); Mean Corpuscular Hgb Conc. 31.2 g/dL (32.0-36.0); Mean Corpuscular Volume 100.6 fL (80.0-100.0); Monocytes # (auto) 0.8 10 ^3/uL (0-1.3); Monocytes % (auto) 15.6 % (0.0-12.0); Neutrophils # (auto) 3.5 10 ^3/uL (1.6-8.6); Neutrophils % (auto) 66.9 % (37.0-80.0); Nucleated Red Blood Cells % 0.3 %; Red Blood Cells 3.12 10^6/uL (4.0-5.20); Red Cell Distribution Width 17.9 % (11.8-14.3); White Blood Cell 5.3 10^3/uL (4.4-10.8)
[2024-02-03 06:23] LABS: Alanine Aminotransferase 47 U/L (7-40); Albumin 3.5 g/dL (3.2-4.8); Alkaline Phosphatase 159 U/L (46-116); Aspartate Aminotransferase 29 U/L (13-40); Chloride 106 mmol/L (98-107); Potassium 4.2 mmol/L (3.5-5.1); Sodium 142 mmol/L (136-145)
[2024-02-03 06:30] LABS: Anion Gap 7 (5-15); Bilirubin, Total 0.7 mg/dL (0.2-1.0); Blood Urea Nitrogen 24 mg/dL (9-23); Carbon Dioxide 29 mmol/L (20-30); Glucose 98 mg/dL (74-106)
[2024-02-03 06:31] LABS: Total Protein 5.9 g/dL (5.7-8.2)
[2024-02-03] MEDS: CLOPIDOGREL BISULFATE 75 MG TAB PO SCH (10:19)
[2024-02-03] MEDS: VANCOMYCIN 750mg/150ml 150 ML IV ONE (11:44)
[2024-02-03] MEDS: ERTAPENEM SOD INJ 1 GM in SODIUM CHL 0.9% 50 ML IV SCH (15:02)
[2024-02-03] MEDS: FUROSEMIDE 40 MG/4 ML VIAL IV SCH (18:54)
[2024-02-04] VITALS (9 sets, daily range): BP systolic 107–150; BP diastolic 60–82; PULSE 64–92; RESP 14–18; TEMP 98–98.5; O2SAT 94–100
[2024-02-04 06:55] LABS: Chloride 105 mmol/L (98-107); Potassium 4.7 mmol/L (3.5-5.1); Sodium 140 mmol/L (136-145)
[2024-02-04 06:56] LABS: Anion Gap 7 (5-15); Carbon Dioxide 28 mmol/L (20-30)
[2024-02-04 06:57] LABS: Calcium 8.6 mg/dL (8.7-10.4)
[2024-02-04 07:01] LABS: BUN/Creatinine Ratio 15.1 (10.0-20.0); Blood Urea Nitrogen 25 mg/dL (9-23); Glucose 83 mg/dL (74-106)
[2024-02-04] MEDS ORDERED: FURO40TA4 PO (14:00)
[2024-02-04] MEDS ORDERED: PERCOT PO (14:00)
[2024-02-04] MEDS ORDERED: HYDR1CAP27 PO (14:04)
[2024-02-04 23:08] LABS: COVID19 ANTIGEN SOFIA FIA NEGATIVE (NEGATIVE)
[2024-02-05] VITALS (9 sets, daily range): BP systolic 100–150; BP diastolic 59–80; PULSE 57–91; RESP 14–19; TEMP 97.4–98; O2SAT 95–100
[2024-02-05 12:22] LABS: INR 1.36 (0.9-1.15); Partial Thromboplastin Time 34.4 SEC (24.5-34.5); Prothrombin Time 14.1 sec (9.3-11.8)
[2024-02-06] VITALS (8 sets, daily range): BP systolic 109–165; BP diastolic 56–94; PULSE 77–114; RESP 18–22; TEMP 97.2–98.8; O2SAT 92–100
[2024-02-06 06:35] LABS: Chloride 102 mmol/L (98-107); Potassium 4.3 mmol/L (3.5-5.1); Sodium 140 mmol/L (136-145)
[2024-02-06 06:36] LABS: Anion Gap 7 (5-15); Calcium 9.5 mg/dL (8.5-10.1); Carbon Dioxide 31 mmol/L (20-30)
[2024-02-06 06:41] LABS: BUN/Creatinine Ratio 11.5 (10.0-20.0); Blood Urea Nitrogen 18 mg/dL (9-23); Glucose 102 mg/dL (74-106)
[2024-02-06] MEDS: DOCUSATE SOD 100 MG CAP PO PRN (08:54)
[2024-02-06] MEDS: HALOPERIDOL LACTATE 5 MG/ML INJ VIAL IM PRN (14:21)
[2024-02-06] MEDS ORDERED: MORPHINE SULFATE 4 MG/ML SYR/VIAL IV PRN (22:00)
[2024-02-07] VITALS (8 sets, daily range): BP systolic 123–132; BP diastolic 56–95; PULSE 86–114; RESP 16–20; TEMP 97.9–99.7; O2SAT 90–95
[2024-02-07 06:29] LABS: Basophils # (auto) 0.1 10 ^3/uL (0-0.2); Basophils % (auto) 0.9 % (0.0-2.0); Eosinophils # (auto) 0.4 10 ^3/uL (0-0.8); Eosinophils % (auto) 6.8 % (0.0-7.0); Hematocrit 32.1 % (36.0-46.0); Hemoglobin 9.9 g/dL (12.2-16.2); Lymphocytes # (auto) 0.4 10 ^3/uL (0.4-5.4); Lymphocytes % (auto) 6.8 % (10.0-50.0); Mean Corpuscular Hemoglobin 30.6 pg (28.0-32.0); Mean Corpuscular Volume 98.7 fL (80.0-100.0); Monocytes # (auto) 0.7 10 ^3/uL (0-1.3); Neutrophils # (auto) 4.3 10 ^3/uL (1.6-8.6); Neutrophils % (auto) 73.5 % (37.0-80.0); Nucleated Red Blood Cells % 0.1 %; Red Blood Cells 3.25 10^6/uL (4.0-5.20); Red Cell Distribution Width 17.5 % (11.8-14.3); White Blood Cell 5.8 10^3/uL (4.4-10.8)
[2024-02-07 06:40] LABS: Alanine Aminotransferase 28 U/L (7-40); Albumin 3.4 g/dL (3.2-4.8); Alkaline Phosphatase 141 U/L (46-116); Anion Gap 8 (5-15); Aspartate Aminotransferase 18 U/L (13-40); BUN/Creatinine Ratio 12.7 (10.0-20.0); Blood Urea Nitrogen 16 mg/dL (9-23); Carbon Dioxide 32 mmol/L (20-30); Chloride 102 mmol/L (98-107); Glucose 87 mg/dL (74-106); Sodium 142 mmol/L (136-145)
[2024-02-07 06:41] LABS: Total Protein 6.2 g/dL (5.7-8.2)
[2024-02-07] MEDS: METOPROLOL SUCCINATE XL 50 MG TAB PO SCH (14:06)
[2024-02-07] MEDS: ATORVASTATIN 20 MG TAB PO SCH (21:23)
[2024-02-07] MEDS: APIXABAN 2.5 MG TAB PO SCH (21:23)
[2024-02-08] VITALS (7 sets, daily range): BP systolic 105–150; BP diastolic 56–87; PULSE 69–92; RESP 16–22; TEMP 97.4–98.3; O2SAT 91–97
[2024-02-08 06:50] LABS: Basophils # (auto) 0.1 10 ^3/uL (0-0.2); Hemoglobin 10.7 g/dL (12.2-16.2); Lymphocytes # (auto) 0.5 10 ^3/uL (0.4-5.4); Neutrophils # (auto) 4.6 10 ^3/uL (1.6-8.6); Neutrophils % (auto) 76.1 % (37.0-80.0)
[2024-02-08 06:53] LABS: Eosinophils # (auto) 0.1 10 ^3/uL (0-0.8); Eosinophils % (auto) 2.1 % (0.0-7.0); Hematocrit 34.7 % (36.0-46.0); Lymphocytes % (auto) 8.3 % (10.0-50.0); Mean Corpuscular Hemoglobin 30.6 pg (28.0-32.0); Mean Corpuscular Hgb Conc. 30.9 g/dL (32.0-36.0); Mean Corpuscular Volume 99.1 fL (80.0-100.0); Monocytes # (auto) 0.8 10 ^3/uL (0-1.3); Monocytes % (auto) 12.5 % (0.0-12.0); Nucleated Red Blood Cells % 0.2 %
[2024-02-08 06:56] LABS: Alanine Aminotransferase 55 U/L (7-40); Alkaline Phosphatase 156 U/L (46-116); Calcium 9.5 mg/dL (8.5-10.1); Chloride 104 mmol/L (98-107)
[2024-02-08 06:57] LABS: Albumin 3.6 g/dL (3.2-4.8); Anion Gap 9 (5-15); Aspartate Aminotransferase 67 U/L (13-40); BUN/Creatinine Ratio 10.8 (10.0-20.0); Bilirubin, Total 1.2 mg/dL (0.2-1.0); Blood Urea Nitrogen 16 mg/dL (9-23); Carbon Dioxide 30 mmol/L (20-30); Glucose 83 mg/dL (74-106); Potassium 4.1 mmol/L (3.5-5.1); Sodium 143 mmol/L (136-145); Total Protein 6.2 g/dL (5.7-8.2)
[2024-02-08] MEDS: OLANZapine 5 MG TAB PO SCH (21:46)
[2024-02-09] VITALS (9 sets, daily range): BP systolic 118–151; BP diastolic 51–81; PULSE 72–82; RESP 17–20; TEMP 97.6–98.6; O2SAT 92–99
[2024-02-09 06:44] LABS: Basophils # (auto) 0.1 10 ^3/uL (0-0.2); Basophils % (auto) 1.1 % (0.0-2.0); Eosinophils # (auto) 0.4 10 ^3/uL (0-0.8); Eosinophils % (auto) 5.8 % (0.0-7.0); Hematocrit 35.3 % (36.0-46.0); Hemoglobin 10.9 g/dL (12.2-16.2); Lymphocytes # (auto) 0.9 10 ^3/uL (0.4-5.4); Lymphocytes % (auto) 13.9 % (10.0-50.0); Mean Corpuscular Hemoglobin 30.6 pg (28.0-32.0); Mean Corpuscular Volume 98.6 fL (80.0-100.0); Monocytes # (auto) 0.9 10 ^3/uL (0-1.3); Monocytes % (auto) 13.6 % (0.0-12.0); Neutrophils # (auto) 4.2 10 ^3/uL (1.6-8.6); Neutrophils % (auto) 65.6 % (37.0-80.0); Nucleated Red Blood Cells % 0.1 %; Red Blood Cells 3.58 10^6/uL (4.0-5.20); Red Cell Distribution Width 17.2 % (11.8-14.3); White Blood Cell 6.3 10^3/uL (4.4-10.8)
[2024-02-09 06:59] LABS: Alanine Aminotransferase 160 U/L (7-40); Albumin 3.6 g/dL (3.2-4.8); Alkaline Phosphatase 152 U/L (46-116); Anion Gap 9 (5-15); Aspartate Aminotransferase 178 U/L (13-40); BUN/Creatinine Ratio 12.6 (10.0-20.0); Bilirubin, Total 0.9 mg/dL (0.2-1.0); Blood Urea Nitrogen 24 mg/dL (9-23); Calcium 9.6 mg/dL (8.7-10.4); Carbon Dioxide 30 mmol/L (20-30); Chloride 104 mmol/L (98-107); Glucose 97 mg/dL (74-106); Potassium 4.1 mmol/L (3.5-5.1); Sodium 143 mmol/L (136-145); Total Protein 6.5 g/dL (5.7-8.2)
[2024-02-10 05:00] VITALS: BP 141/69; PULSE 81; RESP 18; TEMP 98; O2SAT 96
[2024-02-10 05:33] LABS: Basophils # (auto) 0.1 10 ^3/uL (0-0.2); Monocytes # (auto) 0.9 10 ^3/uL (0-1.3)
[2024-02-10 05:36] LABS: Basophils % (auto) 1.3 % (0.0-2.0); Eosinophils # (auto) 0.3 10 ^3/uL (0-0.8); Eosinophils % (auto) 4.8 % (0.0-7.0); Hematocrit 34.8 % (36.0-46.0); Lymphocytes # (auto) 0.7 10 ^3/uL (0.4-5.4); Lymphocytes % (auto) 10.5 % (10.0-50.0); Mean Corpuscular Hemoglobin 30.8 pg (28.0-32.0); Mean Corpuscular Hgb Conc. 31.6 g/dL (32.0-36.0); Mean Corpuscular Volume 97.6 fL (80.0-100.0); Monocytes % (auto) 12.8 % (0.0-12.0); Neutrophils # (auto) 4.8 10 ^3/uL (1.6-8.6); Neutrophils % (auto) 70.6 % (37.0-80.0); Nucleated Red Blood Cells % 0.1 %; Red Blood Cells 3.57 10^6/uL (4.0-5.20); Red Cell Distribution Width 17.4 % (11.8-14.3); White Blood Cell 6.8 10^3/uL (4.4-10.8)
[2024-02-10 05:57] LABS: Alanine Aminotransferase 207 U/L (7-40); Albumin 3.5 g/dL (3.2-4.8); Alkaline Phosphatase 147 U/L (46-116); Anion Gap 11 (5-15); Aspartate Aminotransferase 194 U/L (13-40); BUN/Creatinine Ratio 14.4 (10.0-20.0); Bilirubin, Total 0.9 mg/dL (0.2-1.0); Blood Urea Nitrogen 28 mg/dL (9-23); Calcium 9.8 mg/dL (8.7-10.4); Carbon Dioxide 29 mmol/L (20-30); Chloride 105 mmol/L (98-107); Glucose 91 mg/dL (74-106); Potassium 4.2 mmol/L (3.5-5.1); Sodium 145 mmol/L (136-145); Total Protein 6.3 g/dL (5.7-8.2)
[2024-02-10 08:00] VITALS: PULSE 83; RESP 20
[2024-02-10 09:00] VITALS: BP 136/90; PULSE 90; RESP 18; TEMP 98.5; O2SAT 94
[2024-02-10] MEDS: FUROSEMIDE 40 MG/4 ML VIAL IV SCH (09:48)
[2024-02-10] MEDS: ERTAPENEM SOD INJ 0.5 GM in SODIUM CHL 0.9% 50 ML IV SCH (09:49)
[2024-02-10 13:00] VITALS: BP 134/77; PULSE 76; RESP 18; TEMP 97.6; O2SAT 96
[2024-02-10] MEDS: LINEZOLID 600MG/300ML 300 ML IV SCH (14:53)
[2024-02-10 17:14] VITALS: BP 138/80; PULSE 84; RESP 18; TEMP 97.6; O2SAT 94
[2024-02-10] MEDS: D5W/SOD CHL 0.45% 1,000 ML IV SCH (17:22)
[2024-02-10 20:00] VITALS: PULSE 71; PULSE 74; RESP 20
[2024-02-11] VITALS (8 sets, daily range): BP systolic 113–126; BP diastolic 66–80; PULSE 64–80; RESP 16–20; TEMP 97.5–98.7; O2SAT 97–100
[2024-02-11 06:19] LABS: Basophils # (auto) 0.1 10 ^3/uL (0-0.2); Eosinophils # (auto) 0.5 10 ^3/uL (0-0.8); Eosinophils % (auto) 8.7 % (0.0-7.0); Hematocrit 35.5 % (36.0-46.0); Hemoglobin 10.9 g/dL (12.2-16.2); Lymphocytes # (auto) 0.7 10 ^3/uL (0.4-5.4); Lymphocytes % (auto) 12.8 % (10.0-50.0); Mean Corpuscular Hemoglobin 29.7 pg (28.0-32.0); Mean Corpuscular Hgb Conc. 30.7 g/dL (32.0-36.0); Mean Corpuscular Volume 96.8 fL (80.0-100.0); Monocytes # (auto) 0.7 10 ^3/uL (0-1.3); Monocytes % (auto) 13.7 % (0.0-12.0); Neutrophils # (auto) 3.4 10 ^3/uL (1.6-8.6); Neutrophils % (auto) 63.8 % (37.0-80.0); Nucleated Red Blood Cells % 0.3 %; Red Blood Cells 3.66 10^6/uL (4.0-5.20); Red Cell Distribution Width 17.2 % (11.8-14.3); White Blood Cell 5.2 10^3/uL (4.4-10.8)
[2024-02-11 06:27] LABS: Alanine Aminotransferase 194 U/L (7-40); Albumin 3.2 g/dL (3.2-4.8); Alkaline Phosphatase 138 U/L (46-116); Anion Gap 6 (5-15); Aspartate Aminotransferase 137 U/L (13-40); BUN/Creatinine Ratio 16.8 (10.0-20.0); Bilirubin, Total 0.7 mg/dL (0.2-1.0); Blood Urea Nitrogen 30 mg/dL (9-23); Calcium 9.3 mg/dL (8.7-10.4); Carbon Dioxide 31 mmol/L (20-30); Chloride 107 mmol/L (98-107); Glucose 113 mg/dL (74-106); Potassium 4.1 mmol/L (3.5-5.1); Sodium 144 mmol/L (136-145); Total Protein 5.9 g/dL (5.7-8.2)
[2024-02-11] MEDS ORDERED: BACLOFEN 10 MG TAB PO PRN (10:30)
[2024-02-11] MEDS ORDERED: hydrOXYzine HCL 10 MG TAB PO PRN (10:30)
[2024-02-11 14:53] LABS: COVID19 ANTIGEN SOFIA FIA NEGATIVE (NEGATIVE)
[2024-02-11] MEDS: ALBUTEROL SULF 2.5 MG/0.5ML(0.5%) NEB SOLN NEB PRN (19:17)
[2024-02-12] MEDS ORDERED: BUMETANIDE 1 MG TAB PO SCH (10:00)
[2024-02-12] MEDS ORDERED: EMPAGLIFLOZIN 10 MG TAB PO SCH (10:00)
[2024-02-12] MEDS ORDERED: ERTAPENEM SOD INJ 1 GM in SODIUM CHL 0.9% 50 ML IV SCH (10:00)
[2024-02-12] MEDS ORDERED: LISINOPRIL 5 MG TAB PO SCH (10:00)
== END 2024-02-11 20:35 | DRG 280 ==
LOC: ER 22:52 → EDBD 22:52 → EDSEX 22:52 → TELE 02-02 05:25 → TELE-EAST 02-03 05:25
PROVIDERS: ADMIT Nurse Practitioner Family; ATTEND Family Medicine
DX: I13.0 Hypertensive heart and chronic kidney disease with heart failure and stage 1 through stage 4 chronic kidney disease, or unspecified chronic kidney disease (principal); G93.41 Metabolic encephalopathy; I21.A1 Myocardial infarction type 2; J96.01 Acute respiratory failure with hypoxia; I50.23 Acute on chronic systolic (congestive) heart failure; N17.9 Acute kidney failure, unspecified; L03.116 Cellulitis of left lower limb; L03.115 Cellulitis of right lower limb; L97.929 Non-pressure chronic ulcer of unspecified part of left lower leg with unspecified severity; E72.4 Disorders of ornithine metabolism; I25.10 Atherosclerotic heart disease of native coronary artery without angina pectoris; Z20.822 Contact with and (suspected) exposure to COVID-19; I48.0 Paroxysmal atrial fibrillation; E78.5 Hyperlipidemia, unspecified; E66.01 Morbid (severe) obesity due to excess calories; E11.22 Type 2 diabetes mellitus with diabetic chronic kidney disease; M17.0 Bilateral primary osteoarthritis of knee; N18.30 Chronic kidney disease, stage 3 unspecified; J45.909 Unspecified asthma, uncomplicated; I65.23 Occlusion and stenosis of bilateral carotid arteries; F29 Unspecified psychosis not due to a substance or known physiological condition; K74.60 Unspecified cirrhosis of liver; F17.200 Nicotine dependence, unspecified, uncomplicated; Z79.01 Long term (current) use of anticoagulants; Z88.1 Allergy status to other antibiotic agents; Z88.8 Allergy status to other drugs, medicaments and biological substances; Z95.1 Presence of aortocoronary bypass graft; Z90.49 Acquired absence of other specified parts of digestive tract; Z98.61 Coronary angioplasty status; Z86.718 Personal history of other venous thrombosis and embolism; Z79.899 Other long term (current) drug therapy; Z79.02 Long term (current) use of antithrombotics/antiplatelets; Z82.49 Family history of ischemic heart disease and other diseases of the circulatory system; Z82.5 Family history of asthma and other chronic lower respiratory diseases; Z68.36 Body mass index [BMI] 36.0-36.9, adult
CPT/HCPCS: 36415; 70450; 71045; 71046; 73700; 80048; 80053; 80202; 80320; 81001; 82140; 83605; 83690; 83880; 84484; 85025; 85610; 85730; 86850; 86900; 86901; 87077; 87186; 87205; 87426; 93005; 93886; 93970; 94640; 96365; 97110; 97116; 97163; 97530; G0378; J1335; P9047

== ENCOUNTER 2024-03-11 03:53 | Inpatient (IN) | payer MEDICARE, OTHER ==
[~2024-03-11] VITALS: Ht 175.3 cm; Wt 100.6 kg
[~2024-03-11 03:53] MED LIST changes: -BUME2TAB5 PO; -CEPH500C PO; -CIPR-173 PO; +FURO40TA4 PO; +HYDR1CAP27 PO; -HYDR50TA69 PO
[2024-03-11 05:07] VITALS: PULSE 64; RESP 17; O2SAT 94
[2024-03-11 06:53] LABS: Basophils # (auto) 0 10 ^3/uL (0-0.2); Eosinophils # (auto) 0.1 10 ^3/uL (0-0.8); Eosinophils % (auto) 4.1 % (0.0-7.0); Lymphocytes # (auto) 0.7 10 ^3/uL (0.4-5.4); Monocytes # (auto) 0.1 10 ^3/uL (0-1.3); Neutrophils # (auto) 1.3 10 ^3/uL (1.6-8.6); Nucleated Red Blood Cells % 0.1 %; White Blood Cell 2.2 10^3/uL (4.4-10.8)
[2024-03-11 06:55] LABS: Basophils % (auto) 0.8 % (0.0-2.0); Hemoglobin 9.9 g/dL (12.2-16.2); Mean Corpuscular Hemoglobin 29.6 pg (28.0-32.0); Mean Corpuscular Hgb Conc. 32.9 g/dL (32.0-36.0); Mean Corpuscular Volume 89.9 fL (80.0-100.0); Neutrophils % (auto) 59.1 % (37.0-80.0); Red Blood Cells 3.34 10^6/uL (4.0-5.20); Red Cell Distribution Width 18.8 % (11.8-14.3)
[2024-03-11 06:59] LABS: Chloride 104 mmol/L (98-107); Potassium 3.3 mmol/L (3.5-5.1); Sodium 139 mmol/L (136-145)
[2024-03-11 07:00] LABS: Anion Gap 8 (5-15); Carbon Dioxide 27 mmol/L (20-30)
[2024-03-11 07:01] LABS: Calcium 9.6 mg/dL (8.7-10.4)
[2024-03-11 07:05] LABS: BUN/Creatinine Ratio 26.8 (10.0-20.0); Blood Urea Nitrogen 38 mg/dL (9-23); Glucose 95 mg/dL (74-106)
[2024-03-11] MEDS: POTASSIUM EFFERVESENT TAB 25 MEQ PO ONE (08:05)
[2024-03-11] MEDS ORDERED: DOCUSATE SOD 100 MG CAP PO PRN (09:45)
[2024-03-11] MEDS ORDERED: MORPHINE SULFATE INJ 2 MG/ml SYRG IV PRN (09:45)
[2024-03-11] MEDS ORDERED: ACETAMINOPHEN 325 MG TAB PO PRN (09:45)
[2024-03-11 09:51] VITALS: PULSE 77; RESP 18; O2SAT 93
[2024-03-11 10:29] LABS: Urine Bacteria None Seen /hpf (None Seen)
[2024-03-11] MEDS ORDERED: DEXTROSE (50%) 50ML SYRG IV PRN (10:30)
[2024-03-11] MEDS: ACCU-CHEK COMFORT CURVE STRIP VI SCH (11:11)
[2024-03-11] MEDS: InsuLIN REG 1unit/0.01ml Soln (100units/ml) SC SCH (11:11)
[2024-03-11 11:13] LABS: INR 1.3 (0.9-1.15); Partial Thromboplastin Time 29.6 SEC (24.5-34.5); Prothrombin Time 13.5 sec (9.3-11.8)
[2024-03-11 11:16] LABS: Urine Blood Negative /uL (Negative); Urine Budding Yeast MODERATE /hpf (None Seen); Urine Clarity Clear (Clear); Urine Color Light-Yellow (Yellow); Urine Protein, UAD TRACE (Negative); Urine Specific Gravity 1.013 (1.001-1.035); Urine Urobilinogen Normal (Negative); Urine WBC 34 /hpf (0 - 5); Urine pH 5.5 (5.0-9.0)
[2024-03-11] MEDS ORDERED: ALBUTEROL SULF 2.5 MG/0.5ML(0.5%) NEB SOLN NEB PRN (13:15)
[2024-03-11] MEDS: ALBUTEROL SULF 2.5 MG/0.5ML(0.5%) NEB SOLN NEB PRN (13:55)
[2024-03-11 17:53] VITALS: BP 149/72; PULSE 78; RESP 19; TEMP 98.8; O2SAT 96
[2024-03-11 18:07] VITALS: PULSE 80; RESP 18; O2SAT 96
[2024-03-11 21:00] VITALS: BP 118/63; PULSE 66; RESP 18; TEMP 98.2; O2SAT 97
[2024-03-11] MEDS: AMIODARONE HCL 200 MG TAB PO SCH (21:35)
[2024-03-11] MEDS: LOPERAMIDE HCL 2 MG CAP/TAB PO PRN (21:35)
[2024-03-11 21:52] VITALS: BP 118/63; PULSE 66; RESP 18; TEMP 98.2; O2SAT 97
[2024-03-12] VITALS (14 sets, daily range): BP systolic 105–130; BP diastolic 60–78; PULSE 64–94; RESP 15–20; TEMP 97.4–98.4; O2SAT 95–99
[2024-03-12] MEDS: LEVOTHYROXINE SODIUM 50 MCG TAB PO SCH (06:25)
[2024-03-12] MEDS: LEVOTHYROXINE SODIUM 100 MCG TAB PO SCH (06:25)
[2024-03-12 07:11] LABS: Basophils # (auto) 0 10 ^3/uL (0-0.2); Basophils % (auto) 0.6 % (0.0-2.0); Eosinophils # (auto) 0.1 10 ^3/uL (0-0.8); Eosinophils % (auto) 5.5 % (0.0-7.0); Hematocrit 28.5 % (36.0-46.0); Hemoglobin 9.2 g/dL (12.2-16.2); Lymphocytes # (auto) 0.6 10 ^3/uL (0.4-5.4); Lymphocytes % (auto) 31.3 % (10.0-50.0); Mean Corpuscular Hemoglobin 28.9 pg (28.0-32.0); Mean Corpuscular Hgb Conc. 32.2 g/dL (32.0-36.0); Mean Corpuscular Volume 89.8 fL (80.0-100.0); Monocytes # (auto) 0.1 10 ^3/uL (0-1.3); Monocytes % (auto) 4.7 % (0.0-12.0); Neutrophils # (auto) 1.1 10 ^3/uL (1.6-8.6); Neutrophils % (auto) 57.9 % (37.0-80.0); Nucleated Red Blood Cells % 0.6 %; Red Blood Cells 3.17 10^6/uL (4.0-5.20); Red Cell Distribution Width 18.8 % (11.8-14.3)
[2024-03-12 07:25] LABS: Alanine Aminotransferase 19 U/L (7-40); Albumin 3.4 g/dL (3.2-4.8); Alkaline Phosphatase 106 U/L (46-116); Anion Gap 6 (5-15); BUN/Creatinine Ratio 21.1 (10.0-20.0); Calcium 9.2 mg/dL (8.5-10.1); Carbon Dioxide 30 mmol/L (20-30); Chloride 104 mmol/L (98-107); Glucose 76 mg/dL (74-106); Potassium 3.4 mmol/L (3.5-5.1); Sodium 140 mmol/L (136-145)
[2024-03-12 07:26] LABS: Aspartate Aminotransferase 13 U/L (13-40); Bilirubin, Total 0.9 mg/dL (0.2-1.0); Blood Urea Nitrogen 26 mg/dL (9-23); Total Protein 5.7 g/dL (5.7-8.2)
[2024-03-12] MEDS: LISINOPRIL 5 MG TAB PO SCH (09:28)
[2024-03-12] MEDS: POTASSIUM CHL 10 Meq TABLET PO SCH (09:29)
[2024-03-12] MEDS: FUROSEMIDE 40 MG TAB PO SCH (09:29)
[2024-03-12] MEDS: BUMETANIDE 1 MG TAB PO SCH (09:30)
[2024-03-12] MEDS: METOPROLOL SUCCINATE XL 50 MG TAB PO SCH (09:31)
[2024-03-12] MEDS: PANTOPRAZOLE 40 MG/10 ML VIAL INJ IV SCH (09:32)
[2024-03-12] MEDS ORDERED: PATIENTS OWN MEDICATION (Levothyroxine Sodium 1 TAB) PO SCH (10:00)
[2024-03-12] MEDS ORDERED: PATIENTS OWN MEDICATION (Metoprolol Succinate (Metoprolol Succinate Er) 1 TAB) PO SCH (10:00)
[2024-03-12] MEDS ORDERED: PATIENTS OWN MEDICATION (Bumetanide 1 TAB) PO SCH (10:00)
[2024-03-12] MEDS ORDERED: PATIENTS OWN MEDICATION (Lisinopril 1 TAB) PO SCH (10:00)
[2024-03-12] MEDS: cefTRIAXone 1GM/50ML D5W 50 ML IV ONE (14:18)
[2024-03-13] VITALS (8 sets, daily range): BP systolic 100–139; BP diastolic 57–76; PULSE 63–92; RESP 16–20; TEMP 97.9–98.2; O2SAT 90–96
[2024-03-13 06:09] LABS: Basophils # (auto) 0 10 ^3/uL (0-0.2); Basophils % (auto) 0.5 % (0.0-2.0); Eosinophils # (auto) 0.1 10 ^3/uL (0-0.8); Monocytes # (auto) 0.1 10 ^3/uL (0-1.3); White Blood Cell 2.9 10^3/uL (4.4-10.8)
[2024-03-13 06:12] LABS: Eosinophils % (auto) 3.7 % (0.0-7.0); Hematocrit 29.3 % (36.0-46.0); Hemoglobin 9.7 g/dL (12.2-16.2); Lymphocytes # (auto) 0.6 10 ^3/uL (0.4-5.4); Lymphocytes % (auto) 22.6 % (10.0-50.0); Mean Corpuscular Hemoglobin 29.7 pg (28.0-32.0); Mean Corpuscular Hgb Conc. 33.2 g/dL (32.0-36.0); Mean Corpuscular Volume 89.6 fL (80.0-100.0); Monocytes % (auto) 4.7 % (0.0-12.0); Neutrophils % (auto) 68.5 % (37.0-80.0); Nucleated Red Blood Cells % 0.1 %; Red Blood Cells 3.27 10^6/uL (4.0-5.20); Red Cell Distribution Width 18.9 % (11.8-14.3)
[2024-03-13 06:29] LABS: Alanine Aminotransferase 18 U/L (7-40); Albumin 3.5 g/dL (3.2-4.8); Alkaline Phosphatase 108 U/L (46-116); Anion Gap 10 (5-15); Aspartate Aminotransferase 13 U/L (13-40); BUN/Creatinine Ratio 23.6 (10.0-20.0); Blood Urea Nitrogen 30 mg/dL (9-23); Calcium 9.5 mg/dL (8.7-10.4); Carbon Dioxide 27 mmol/L (20-30); Chloride 102 mmol/L (98-107); Glucose 97 mg/dL (74-106); Potassium 3.7 mmol/L (3.5-5.1); Sodium 139 mmol/L (136-145)
[2024-03-13 06:30] LABS: Bilirubin, Total 0.7 mg/dL (0.2-1.0); Total Protein 5.9 g/dL (5.7-8.2)
[2024-03-13 06:52] LABS: Anisocytosis Slight; Ovalocytes FEW; Platelet Estimate Decreased
[2024-03-13] MEDS: cefTRIAXone 1GM/50ML D5W 50 ML IV SCH (08:44)
[2024-03-13 08:54] LABS: Hepatitis B Surface Antigen Negative (Negative)
[2024-03-13 09:15] LABS: Hepatitis A Ab IgM Negative
[2024-03-13 09:16] LABS: Hepatitis B Core IgM Negative; Hepatitis C Antibody Negative (Negative)
[2024-03-14] VITALS (13 sets, daily range): BP systolic 100–143; BP diastolic 62–90; PULSE 61–96; RESP 16–96; TEMP 97.4–98.4; O2SAT 90–98
[2024-03-14 06:42] LABS: Basophils # (auto) 0 10 ^3/uL (0-0.2); Basophils % (auto) 0.8 % (0.0-2.0); Eosinophils # (auto) 0.1 10 ^3/uL (0-0.8); Eosinophils % (auto) 3.3 % (0.0-7.0); Hematocrit 30.1 % (36.0-46.0); Hemoglobin 9.6 g/dL (12.2-16.2); Lymphocytes # (auto) 0.8 10 ^3/uL (0.4-5.4); Lymphocytes % (auto) 28.1 % (10.0-50.0); Mean Corpuscular Hemoglobin 28.5 pg (28.0-32.0); Mean Corpuscular Hgb Conc. 31.8 g/dL (32.0-36.0); Mean Corpuscular Volume 89.8 fL (80.0-100.0); Monocytes # (auto) 0.2 10 ^3/uL (0-1.3); Monocytes % (auto) 7.2 % (0.0-12.0); Neutrophils # (auto) 1.7 10 ^3/uL (1.6-8.6); Neutrophils % (auto) 60.6 % (37.0-80.0); Nucleated Red Blood Cells % 0.1 %; Red Blood Cells 3.36 10^6/uL (4.0-5.20); Red Cell Distribution Width 18.7 % (11.8-14.3); White Blood Cell 2.9 10^3/uL (4.4-10.8)
[2024-03-14 07:10] LABS: Alanine Aminotransferase 19 U/L (7-40); Albumin 3.6 g/dL (3.2-4.8); Alkaline Phosphatase 114 U/L (46-116); Anion Gap 10 (5-15); Aspartate Aminotransferase 12 U/L (13-40); Bilirubin, Total 0.7 mg/dL (0.2-1.0); Blood Urea Nitrogen 25 mg/dL (9-23); Calcium 9.5 mg/dL (8.5-10.1); Carbon Dioxide 27 mmol/L (20-30); Chloride 101 mmol/L (98-107); Glucose 103 mg/dL (74-106); Potassium 3.8 mmol/L (3.5-5.1); Sodium 138 mmol/L (136-145)
[2024-03-14] MEDS: HYDROcodone-ACET 5/325MG TAB PO PRN (21:55)
[2024-03-15] VITALS (9 sets, daily range): BP systolic 115–146; BP diastolic 55–87; PULSE 65–91; RESP 14–20; TEMP 97.6–98.1; O2SAT 93–98
[2024-03-15 06:54] LABS: Basophils # (auto) 0 10 ^3/uL (0-0.2); Basophils % (auto) 0.9 % (0.0-2.0); Eosinophils # (auto) 0.1 10 ^3/uL (0-0.8); Eosinophils % (auto) 2.6 % (0.0-7.0); Hematocrit 29.8 % (36.0-46.0); Hemoglobin 9.6 g/dL (12.2-16.2); Lymphocytes # (auto) 0.8 10 ^3/uL (0.4-5.4); Lymphocytes % (auto) 27.6 % (10.0-50.0); Mean Corpuscular Hemoglobin 28.7 pg (28.0-32.0); Mean Corpuscular Hgb Conc. 32.4 g/dL (32.0-36.0); Mean Corpuscular Volume 88.7 fL (80.0-100.0); Monocytes # (auto) 0.3 10 ^3/uL (0-1.3); Monocytes % (auto) 11.5 % (0.0-12.0); Neutrophils # (auto) 1.6 10 ^3/uL (1.6-8.6); Neutrophils % (auto) 57.4 % (37.0-80.0); Nucleated Red Blood Cells % 0.1 %; Red Blood Cells 3.36 10^6/uL (4.0-5.20); Red Cell Distribution Width 19.1 % (11.8-14.3); White Blood Cell 2.9 10^3/uL (4.4-10.8)
[2024-03-15 07:36] LABS: Alanine Aminotransferase 20 U/L (7-40); Albumin 3.7 g/dL (3.2-4.8); Alkaline Phosphatase 121 U/L (46-116); Anion Gap 9 (5-15); Aspartate Aminotransferase 11 U/L (13-40); BUN/Creatinine Ratio 25.4 (10.0-20.0); Blood Urea Nitrogen 32 mg/dL (9-23); Calcium 9.7 mg/dL (8.5-10.1); Carbon Dioxide 28 mmol/L (20-30); Chloride 101 mmol/L (98-107); Glucose 97 mg/dL (74-106); Potassium 3.8 mmol/L (3.5-5.1); Sodium 138 mmol/L (136-145)
[2024-03-15 07:37] LABS: Bilirubin, Total 0.8 mg/dL (0.2-1.0); Total Protein 6.2 g/dL (5.7-8.2)
[2024-03-15] MEDS: FLUCONAZOLE 100 MG TAB PO SCH (10:20)
[2024-03-16] VITALS (9 sets, daily range): BP systolic 96–137; BP diastolic 69–87; PULSE 63–91; RESP 16–20; TEMP 97.8–99.1; O2SAT 90–99
[2024-03-16] MEDS: ONDANSETRON HCL 4 MG/2 ML VIAL IV PRN (08:12)
[2024-03-17] VITALS (12 sets, daily range): BP systolic 92–158; BP diastolic 59–83; PULSE 51–86; RESP 16–20; TEMP 97.7–98.7; O2SAT 85–99
[2024-03-17 09:07] LABS: Anti-Nuclear Antibody Direct Negative (Negative); Anti-dsDNA Antibody 1 IU/mL (0-9); RNP Antibody <0.2 AI (0.0-0.9); Smith Antibody <0.2 AI (0.0-0.9)
[2024-03-17] MEDS: MIDAZOLAM HCL 2MG/2ML 2ml VIAL (1mg/ml) IV ONE (09:15)
[2024-03-17] MEDS: fentaNYL CITRATE 100 MCG/2 ML VL IV ONE (09:15)
[2024-03-17] MEDS: LIDOCAINE 2%HCL (LOCAL ANESTH.) INJ 10ml MDV ONE (09:30)
[2024-03-17 11:24] LABS: Hemoglobin 9.6 g/dL (12.2-16.2); White Blood Cell 4.8 10^3/uL (4.4-10.8)
[2024-03-17 11:28] LABS: Hematocrit 30.2 % (36.0-46.0); Mean Corpuscular Hgb Conc. 31.9 g/dL (32.0-36.0); Mean Corpuscular Volume 90.8 fL (80.0-100.0); Red Blood Cells 3.32 10^6/uL (4.0-5.20); Red Cell Distribution Width 18.6 % (11.8-14.3)
[2024-03-17 11:53] LABS: Band Neutrophils % (manual) 0; Basophils % (manual) 0 (0.0-2.0); Blast Cells 0; Eosinophils % (manual) 0 (0-7); Metamyelocytes % 0; Myelocytes % 0; Promyelocytes % 0; Reactive Lymphocytes 0
[2024-03-17 12:59] LABS: Large Platelets FEW; Lymphocytes % (manual) 17 (10.0-50.0); Monocytes % (manual) 11 (0-12); Ovalocytes FEW; Platelet Estimate Decrea; Smudge Cells 7 /100 WBC
[2024-03-18] VITALS (12 sets, daily range): BP systolic 112–156; BP diastolic 56–75; PULSE 53–90; RESP 16–18; TEMP 97.6–98.2; O2SAT 94–99
[2024-03-18 11:48] LABS: Hemoglobin 9.5 g/dL (12.2-16.2); Mean Corpuscular Hemoglobin 28.6 pg (28.0-32.0); Mean Corpuscular Hgb Conc. 31.7 g/dL (32.0-36.0); Red Blood Cells 3.33 10^6/uL (4.0-5.20); Red Cell Distribution Width 19.1 % (11.8-14.3); White Blood Cell 6.2 10^3/uL (4.4-10.8)
[2024-03-18 12:35] LABS: Basophils % (manual) 0 (0.0-2.0); Blast Cells 0; Eosinophils % (manual) 0 (0-7); Metamyelocytes % 0; Myelocytes % 0; Promyelocytes % 0; Reactive Lymphocytes 0
[2024-03-18 12:41] LABS: COVID19 ANTIGEN SOFIA FIA NEGATIVE (NEGATIVE)
[2024-03-18 13:09] LABS: Band Neutrophils % (manual) 11; Lymphocytes % (manual) 17 (10.0-50.0); Monocytes % (manual) 16 (0-12); Platelet Estimate Decreased
[2024-03-19] MEDS ORDERED: EMPAGLIFLOZIN 10 MG TAB PO SCH (10:00)
[2024-03-19] MEDS ORDERED: levoFLOXacin 500 MG TAB PO SCH (10:00)
== END 2024-03-18 20:08 | DRG 853 ==
LOC: EDBD 03:53 → ER 03:53 → EDUNIT# 09:49 → OVERFLOW 09:49 → WEST WING 17:53
PROVIDERS: ADMIT Nurse Practitioner Family; ATTEND Family Medicine
PROC: 30233R1 Transfusion of Nonautologous Platelets into Peripheral Vein, Percutaneous Approach (ICD-10-PCS; principal; 2024-03-12)
PROC: 0QB23ZX Excision of Right Pelvic Bone, Percutaneous Approach, Diagnostic (ICD-10-PCS; 2024-03-17)
PROC: 30233R1 Transfusion of Nonautologous Platelets into Peripheral Vein, Percutaneous Approach (ICD-10-PCS; 2024-03-17)
DX: A41.9 Sepsis, unspecified organism (principal); N17.0 Acute kidney failure with tubular necrosis; D61.818 Other pancytopenia; E46 Unspecified protein-calorie malnutrition; N39.0 Urinary tract infection, site not specified; L03.116 Cellulitis of left lower limb; E87.6 Hypokalemia; E11.9 Type 2 diabetes mellitus without complications; I50.9 Heart failure, unspecified; I11.0 Hypertensive heart disease with heart failure; Z20.822 Contact with and (suspected) exposure to COVID-19; I48.91 Unspecified atrial fibrillation; B37.9 Candidiasis, unspecified; D63.8 Anemia in other chronic diseases classified elsewhere; M13.88 Other specified arthritis, other site; E66.01 Morbid (severe) obesity due to excess calories; I25.10 Atherosclerotic heart disease of native coronary artery without angina pectoris; Z95.1 Presence of aortocoronary bypass graft; Z88.1 Allergy status to other antibiotic agents; Z86.718 Personal history of other venous thrombosis and embolism; Z68.32 Body mass index [BMI] 32.0-32.9, adult
CPT/HCPCS: 10005; 36415; 72192; 77012; 80048; 80053; 80074; 81001; 82607; 82728; 82962; 83036; 83540; 83550; 83615; 84484; 85007; 85025; 85027; 85610; 85730; 86038; 86850; 86880; 86900; 86901; 87040; 87081; 87086; 87088; 87205; 87426; 87493; 94640; 97110; 97163; 97530; 99291; C9113; G0378; J1815; J2001; J2250; J2405

== ENCOUNTER 2024-09-16 11:01 | Inpatient (IN) | payer BC, MEDICARE ==
[~2024-09-16] VITALS: Ht 162.6 cm; Wt 78.6 kg
[2024-09-16] MEDS: diphenhdrAMINE HCL 25 MG CAP PO ONE (01:00)
[~2024-09-16 11:01] MED LIST changes: +AMIO200T13 PO; +BUME2TAB5 PO; +LEVO150T10 PO; +METO25TA93 PO; +POTA-211 PO
--- NOTE | 2024-09-16 11:16 | ED.PDOC ---
History of Present Illness HPI Comments 69 y/o F, with a Hx of HLD, HTN, seizures, and obesity, is BIBA for c/o generalized weakness, today. Per EMS report, patient endorses on unprovoked onset of progressively worsening weakness for the past 2x days, with patient calling EMS staff after failing to able to stand up after using her bathroom's toiled, this morning. Patient was commented to have been found with a blood glucose of 86 and a systolic pressure of 199 on scene by EMS staff. Patient also has a reported recent Hx of seizure Dx following a visit to [facility] for seizure-like activity 6x months ago. Since then, patient endorses on being placed, initially, on 1000mg BID Keppra medication prior to it being changed to 500mg BID by her neurologist she has been following since Dx. She reports no further additional relevant or pertinent Hx, such as recent injuries, travel, or substance use/exposure, aside from commenting on possible sick contact with her , whom she states on him being "nuts." She denies any vision or speech changes, dizziness, lightheadedness, fever, chills, or other associated symptoms or modifiers at this time. Chief Complaint: General Weakness Time Seen by MD: 11:00 Primary Care Provider: UNKNOWN Reviewed Notes: Nurses Notes, Interior Designer Notes, Medications, Allergies Allergies: Coded Allergies: Azithromycin (Verified Allergy, Intermediate, DIARRHEA, 11/30/22) Statins (Verified Allergy, Intermediate, DIARRHEA , 11/30/22) Polyethylene Glycol (Verified Allergy, Unknown, VOMIT, 11/16/23) Uncoded Allergies: MYACIN (Allergy, Unknown, 03/11/24) Home Meds Active Scripts Metoprolol Succinate (Toprol Xl) 25 Mg Tab, 1 TAB PO DAILY, #90 TAB 1 Refill Prov:JOSÉ WONG FIRE ALARM MECHANIC 01/28/24 Empagliflozin (Jardiance) 10 Mg Tab, 10 MG PO DAILY for 60 Days, #60 TAB Prov:JOSÉ WONG FIRE ALARM MECHANIC 01/28/24 Amiodarone Hcl (Amiodarone Hcl) 200 Mg Tab, 1 TAB PO DAILY, #30 TAB 9 Refills Prov:MEREDITH JAUREGUI DO 01/27/24 Clopidogrel Bisulfate (CLOPIDOGREL) 75 Mg Tab, 75 MG PO DAILY for 30 Days, #30 TAB 9 Refills Prov:MEREDITH JAUREGUI DO 01/27/24 Atorvastatin Calcium (ATORVASTATIN CALCIUM) 20 Mg Tab, 40 MG PO HS for 30 Days, #60 TAB 9 Refills Prov:MEREDITH JAUREGUI DO 01/27/24 Reported Medications Baclofen (Baclofen) 10 Mg Tab, 20 MG PO Q8HP PRN for FOR MUSCLE SPASM for 30 Days, MG 03/12/24 Empagliflozin (Jardiance) 10 Mg Tab, 10 MG PO DAILY, TAB 03/12/24 Lisinopril (Lisinopril) 10 Mg Tab, 1 TAB PO DAILY 03/11/24 Metoprolol Succinate (Metoprolol Succinate Er) 25 Mg Tab, 1 TAB PO DAILY 03/11/24 Levothyroxine Sodium (Levothyroxine Sodium) 150 Mcg Tab, 1 TAB PO DAILY 03/11/24 Bumetanide (Bumetanide) 2 Mg Tab, 1 TAB PO DAILY 03/11/24 Potassium Chloride (Klor-Con 10) 10 Meq Tab, 1 TAB PO DAILY 03/11/24 Amiodarone HCl (Amiodarone HCl) 200 Mg Tab, 1 TAB PO BID 03/11/24 Furosemide (Furosemide) 40 Mg Tab, 1 TAB PO DAILY 03/11/24 Ertapenem Sodium (Ertapenem Sodium) 1 Gm Inj, 1 GM IJ DAILY for 5 Days, #5 02/04/24 Hydroxyzine Pamoate (Hydroxyzine Pamoate) 25 Mg Cap, 1 CAP PO DAILY 02/04/24 Furosemide (Furosemide) 40 Mg Tab, 1 TAB PO DAILY 02/04/24 Oxycodone W/ Acetaminophen (Percocet 5/325MG) 1 Tab Tb, 1 TAB PO DAILY 02/04/24 Latanoprost (Xalatan) 0.005 % Denise, 1 DROP EACHEYE QPM 01/22/24 Potassium Chloride (POTASSIUM CHLORIDE CR) 10 Meq Tb, 8 MEQ PO DAILY 01/22/24 Apixaban Base (ELIQUIS) 5 Mg Tab, 1 TAB PO BID 06/05/23 Quetiapine Fumerate (QUETIAPINE FUMARATE) 25 Mg Tab, 1 TAB PO BID 06/05/23 Spironolactone (Spironolactone) 25 Mg Tab, 1 TAB PO DAILY 06/05/23 Baclofen (Baclofen) 10 Mg Tab, 20 MG PO DAILY 3/11/23 Hydrocodone-Acetaminophen (Hydrocodone/Acetaminophen 5-325 mg) 1 Tab Tab, 1 TAB PO Q6HPRN PRN 11/30/22 Albuterol Sulfate (Albuterol Sulfate Hfa) 108 Mcg/Act Aer, 2 PUFF INH Q6H PRN 11/30/22 Lisinopril (Lisinopril) 10 Mg Tab, 1 TAB PO DAILY 11/30/22 Information Source: Patient, Emergency Med Personnel Mode of Arrival: EMS Severity: Moderate Timing: Days Duration: Since onset Prehospital treatment: 12 Lead EKG, Accucheck (86), Consumer Marketing Specialist Past Medical History PAST MEDICAL HISTORY: Arthritis, High Lipids, HTN, Seizures Past Medical History (Other): obesity Surgical History: Cholecystectomy Surgical History (Other): left-shoulder and knee Sx HALF SECTION IRONER History: Denies all HALF SECTION IRONER Hx Family History Family History: Unknown Social History Smoker: Non-Smoker Alcohol: Denies ETOH Use Drugs: Denies Drug Use Lives In: Home Constitutional: denies: chills, diaphoresis, fatigue, fever, malaise, sweats, weakness, others EENTM: denies: blurred vision, double vision, ear bleeding, ear discharge, ear drainage, ear pain, ear ringing, eye pain, eye redness, hearing loss, mouth pain, mouth swelling, nasal discharge, nose bleeding, nose congestion, nose pain, photophobia, tearing, throat pain, throat swelling, voice changes, others Respiratory: denies: cough, hemoptysis, orthopnea, SOB at rest, shortness of breath, SOB with excertion, stridor, wheezing, others Cardiovascular: denies: chest pain, dizzy spells, diaphoresis, Dyspnea on exertion, edema, irregular heart beat, left arm pain, lightheadedness, palpitations, PND, syncope, others Gastrointestinal: denies: abdomen distended, abdominal pain, blood streaked bowels, constipated, diarrhea, dysphagia, difficulty swallowing, hematemesis, melena, nausea, poor appetite, poor fluid intake, rectal bleeding, rectal pain, vomiting, others Genitourinary: denies: abnormal vagina bleeding, burning, dyspareunia, dysuria, flank pain, frequency, hematuria, incontinence, pain, , vagina d ischarge, urgency, others Neurological: reports: weakness; denies: dizziness, fainting, headache, left sided numbness, left sided weakness, numbness, paresthesia, pre-existing deficit, right sided numbness, right sided weakness, seizure, speech problems, tingling, tremors, others Musculoskeletal: denies: back pain, gout, joint pain, joint swelling, muscle pain, muscle stiffness, neck pain, others Integumetry: denies: bruises, change in color, change in hair/nails, dryness, laceration, lesions, lumps, rash, wounds, others Allergic/Immunocompromised: denies: Difficulty Healing, Frequent Infections, Hives, Itching, others Hematologic/Lymphatic: denies: anemia, blood clots, easy bleeding, easy bruising, swollen glands, others Endocrine: denies: excessive hunger, excessive sweating, excessive thirst, excessive urination, flushing, intolerance to cold, intolerance to heat, unexplained weight gain, unexplained weight loss, others Psychiatric: denies: anxiety, bipolar disorder, depression, hopeless, panic disorder, schizophrenia, sleepless, suicidal, others All Other Systems: Reviewed and Negative Physical Exam General Appearance: Moderate Distress HEENT: Normal ENT Inspection, Pharynx Normal, TMs Normal Neck: Full Range of Motion, Non-Tender, Normal, Normal Inspection Respiratory: Chest Non-Tender, Lungs Clear, No Accessory Muscle Use, No Respiratory Distress, Normal Breath Sounds Cardiovascular: No Edema, No JVD, No Murmur, No Gallop, Normal Peripheral Pu lses, Regular Rate/Rhythm Breast Exam: Deferred Gastrointestinal: No Organomegaly, Non Tender, No Pulsatile Mass, Normal Bowel Sounds, Soft Genitalia: Deferred Pelvic: Deferred Rectal: Deferred Extremities: No calf tenderness, Normal capillary refill, Normal inspection, Normal range of motion, Non-tender, No pedal edema Musculoskeletal : Apperance: Normal Neurologic: Alert, road contractor II-XII nml as Tested, No Motor Deficits, Normal Affect, Normal Mood, No Sensory Deficits Cerebellar Function: Normal Reflexes: Normal Skin: Dry, Normal Color, Warm Lymphatic: No Adenopathy Was a procedure done? Was a procedure done?: No Differential Dx Considerations may include: viral syndrome, UTI, electrolyte imbalance, dehydration, URI X-Ray, Labs, Meds, VS Vital Signs Date Time Temp Pulse Resp B/P (MAP) Pulse Ox O2 Delivery O2 Flow Rate FiO2 09/16/24:00 62 09/16/24 11:14 62 09/16/24 11:08 98.2 62 18 199/94 (129) 94 Lab Test 09/16/24 11:31 Range/Units White Blood Count 5.1 4.4-10.8 10^3/uL Red Blood Count 4.10 4.0-5.20 10^6/uL Hemoglobin 13.0 12.2-16.2 g/dL Hematocrit 38.6 36.0-46.0 % Mean Corpuscular Volume 94.2 80.0-100.0 fL Mean Corpuscular Hemoglobin 31.6 28.0-32.0 pg Mean Corpuscular Hemoglobin Concent 33.6 32.0-36.0 g/dL Red Cell Distribution Width 14.3 11.8-14.3 % Platelet Count 190 140-450 10^3/uL Mean Platelet Volume 7.0 6.9-10.8 fL Neutrophils (%) (Auto) 64.8 37.0-80.0 % Lymphocytes (%) (Auto) 17.4 10.0-50.0 % Monocytes (%) (Auto) 8.9 0.0-12.0 % Eosinophils (%) (Auto) 8.1 H 0.0-7.0 % Basophils (%) (Auto) 0.8 0.0-2.0 % Neutrophils # (Auto) 3.3 1.6-8.6 10 ^3/uL Lymphocytes # (Auto) 0.9 0.4-5.4 10 ^3/uL Monocytes # (Auto) 0.5 0-1.3 10 ^3/uL Eosinophils # (Auto) 0.4 0-0.8 10 ^3/uL Basophils # (Auto) 0 0-0.2 10 ^3/uL Nucleated Red Blood Cells 0.0 % Sodium Level 144 136-145 mmol/L Potassium Level 4.3 3.5-5.1 mmol/L Chloride Level 111 H 98-107 mmol/L Carbon Dioxide Level 28 20-31 mmol/L Anion Gap 5 5-15 Blood Urea Nitrogen 19 9-23 mg/dL Creatinine 1.33 H 0.550-1.02 mg/dL Glomerular Filtration Rate Calc 43 >90 mL/min BUN/Creatinine Ratio 14.3 10.0-20.0 Serum Glucose 91 74-106 mg/dL Calcium Level 10.5 H 8.7-10.4 mg/dL Current Medications Medications (Trade) Dose Ordered Sig/Radha Route Start Time Stop Time Status Last Admin Sodium Chloride 500 ml @ 500 mls/hr Q1H ONCE IV 09/16/24 11:15 09/16/24 12:14 DC 09/16/24 11:52 IV Hep-Lock was established The patient was given normal saline at a 500 cc bolus The CBC and chemistry panel is within normal limits The creatinine is 1.33 At this time, the patient was being admitted to the hospitalist A urine test is pending The patient was still having the generalized weakness and unable to get up on their own We have discussed the findings with the patient and they are in agreement with the management Time of 1ST Reevaluation: 11:30 Reevaluation 1ST: Unchanged Patient Education/Counseling: Diagnosis, Treatment, Prognosis Family Education/Counseling: No Family Present Departure 1 Departure Time of Disposition: 12:52 Impression: Primary Impression: Generalized weakness Disposition: ADMITTED INPATIENT Admit to: Med Surg Condition: Fair Critical Care Note Critical Care Time?: No Stability Stability form required: Yes Unstable for transfer: ED Physician Assesment (Clinical assesment) Heart Score Heart Score: Heart Score Response (Comments) Value History Moderate Suspicious 1 EKG Normal 0 Age >65 2 Risk Factors >3 or Hx ASHD 2 Troponin N/A 0 Total 5 I personally scribed for FLORI KAN MD ([email or web address]) on 09/16/24 at 11:16. Electronically submitted by Maykel Man ([email or web address]). FLORI KAN MD Sep 16, 2024 11:16
[2024-09-16 11:20] VITALS: PULSE 59; RESP 12; O2SAT 94
[2024-09-16 11:50] LABS: Basophils # (auto) 0 10 ^3/uL (0-0.2); Basophils % (auto) 0.8 % (0.0-2.0); Eosinophils # (auto) 0.4 10 ^3/uL (0-0.8); Eosinophils % (auto) 8.1 % (0.0-7.0); Hematocrit 38.6 % (36.0-46.0); Lymphocytes # (auto) 0.9 10 ^3/uL (0.4-5.4); Lymphocytes % (auto) 17.4 % (10.0-50.0); Mean Corpuscular Hemoglobin 31.6 pg (28.0-32.0); Mean Corpuscular Hgb Conc. 33.6 g/dL (32.0-36.0); Mean Corpuscular Volume 94.2 fL (80.0-100.0); Monocytes # (auto) 0.5 10 ^3/uL (0-1.3); Monocytes % (auto) 8.9 % (0.0-12.0); Neutrophils # (auto) 3.3 10 ^3/uL (1.6-8.6); Neutrophils % (auto) 64.8 % (37.0-80.0); Platelet Count (auto) 190 10^3/uL (140-450); Red Cell Distribution Width 14.3 % (11.8-14.3); White Blood Cell 5.1 10^3/uL (4.4-10.8)
[2024-09-16] MEDS: SODIUM CHLORIDE 0.9% 500 ML IV ONE (11:52)
[2024-09-16 11:56] LABS: Potassium 4.3 mmol/L (3.5-5.1); Sodium 144 mmol/L (136-145)
[2024-09-16 11:57] LABS: Anion Gap 5 (5-15); Carbon Dioxide 28 mmol/L (20-31)
[2024-09-16 12:02] LABS: BUN/Creatinine Ratio 14.3 (10.0-20.0); Blood Urea Nitrogen 19 mg/dL (9-23); Glucose 91 mg/dL (74-106)
[2024-09-16 12:07] LABS: Calcium 10.5 mg/dL (8.7-10.4); Chloride 111 mmol/L (98-107)
--- NOTE | 2024-09-16 14:15 | ECG ---
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
[2024-09-16 16:04] LABS: Urine Bacteria None Seen /hpf (None Seen)
[2024-09-16 16:14] LABS: Urine Blood Negative /uL (Negative); Urine Clarity Clear (Clear); Urine Color Colorless (Yellow); Urine Protein, UAD Negative (Negative); Urine Specific Gravity 1.011 (1.001-1.035); Urine Squamous Epithelial Cell None Seen /hpf (<5); Urine Urobilinogen Normal (Negative); Urine WBC 1 /hpf (0 - 5); Urine pH 7.5 (5.0-9.0)
--- NOTE | 2024-09-16 17:31 | DVHHPRES ---
History of Present Illness Resident Creating Document: ITZEL ALEX RESIDENT History of Present Illness 69-year-old female with past medical history of HFrEF 35%EF, septic arthritis, anemia of chronic disease, hypertension, seizures, coronary artery disease, questionable septic arthritis who came in due to generalized weakness and confusion. According to the patient, last night on 09/15/2024 got up to use the restroom but she felt like she could not stand and her left leg was not moving and she lost her balance, fell on the bed, patient notes that she had a seizure and subsequently noticed that her nose was bleeding. At the scene patient was found to have a blood glucose of 86 and a systolic blood pressure of 199 by the EMS staff. Patient also notices a erythematous rash on her left forearm that has been present for the past 4 weeks, patient states that it started as a rash that bled easily and has been ongoing and progressively worsening. She was recently started on Keppra 1000 mg b.i.d. which was subsequently reduced to Keppra 500 mg b.i.d. owing to patient experiencing unpleasant side effects including spasms, hiccups. On physical exam, patient has normal strength and sensation in bilateral upper and lower extremities. Patient is on eliquis 5mg bid for paroxysmal afib. Cardiovascular: CAD ENGINEERING PSYCHOLOGIST: Seizure Past Medical History Hypertension, seizures, coronary artery disease, questionable septic arthritis, family history of hypercoagulable state? Past Surgical History Left knee surgery in 2021, left shoulder surgery, cholecystectomy Family History: Other (Hypercoagulable state, patient unsure of the name?) Smoke: No ALCOHOL: occassional Drugs: None Lives: with Family Past Social History Patient lives with her . Denies using tobacco, occasionally drinks alcohol: Last drink was 1 week ago. Denies using any drugs. Review of Systems Constitutional: No: Fever, Chills, Sweats, Weakness, Malaise, Other Eyes: No: Pain, Vision change, Conjunctivae inflammation, Eyelid inflammation, Other, Redness ENT: No: Ear pain, Ear discharge, Nose pain, Nose discharge, Nose congestion, Mouth pain, Mouth swelling, Throat pain, Throat swelling, Other Respiratory: No: Cough, Dry, Shortness of breath, SOB with excertion, Wheezing, Hemoptysis, Pleuritic Pain, Sputum, Wheezing, Other Cardiovascular: No: Chest Pain, Palpitations, Orthopnea, Paroxysmal Noc. Dyspnea, Edema, Lt Headedness, Other Gastrointestinal: No: Nausea, Vomiting, Abdominal Pain, Diarrhea, Constipation, Melena, Hematochezia, Other Genitourinary: No Dysuria; Frequency; No Incontinence, No Hematuria, No Retention, No Other Musculoskeletal: No: other, neck pain, shoulder pain, arm pain, back pain, hand pain, leg pain, foot pain Skin: Rash; No: Lesions, Jaundice, Bruising, Other Neurological: Weakness, Confusion, Seizures; No: Numbness, Incoordination, Change in speech, Other Allergies: Coded Allergies: Azithromycin (Verified Allergy, Intermediate, DIARRHEA, 11/30/22) Statins (Verified Allergy, Intermediate, DIARRHEA , 11/30/22) Polyethylene Glycol (Verified Allergy, Unknown, VOMIT, 11/16/23) Uncoded Allergies: MYACIN (Allergy, Unknown, 03/11/24) Exam Vital Signs Vital Signs Date Time Temp Pulse Resp B/P (MAP) Pulse Ox O2 Delivery O2 Flow Rate FiO2 09/16/24 16:00 59 16 174/86 (115) 93 09/16/24 11:20 98.2 98.2 09/16/24 11:20 Room Air* 0 21 General Appearance: Cooperative, Other (AOX2) HEENT: Atraumatic, PERRLA, EOMI, Mucous membr. moist/pink Respiratory: Clear to auscultation, Normal air movement Cardiovascular: Normal S1, Normal S2, Other (systolic murmur heard best over aortic area ) Abdominal: Normal bowel sounds, Soft, No tenderness, No hepatospenomegaly, No masses Extremities: No clubbing, No cyanosis, No edema, Normal pulses, Other (Left forearm erythema and warmth) Neuro: Normal speech, Normal tone, Sensation intact Psych/Mental Status: Mood NL Labs/Xrays Labs Test 09/16/24 15:54 09/16/24 11:31 Range/Units Urine Color Colorless Yellow Urine Clarity Clear Clear Urine pH 7.5 5.0-9.0 Urine Specific [place] 1.011 1.001-1.035 Urine Protein Negative Negative Urine Ketones Negative Negative Urine Blood Negative Negative /uL Urine Nitrite Negative Negative Urine Bilirubin Negative Negative Urine Urobilinogen Normal Negative mg/dL Urine Leukocyte Esterase Negative Negative /uL Urine RBC 1 0 - 4 /hpf Urine WBC 1 0 - 5 /hpf Urine Squamous Epithelial Cells None seen <5 /hpf Urine Bacteria None seen None Seen /hpf Urine Glucose Normal Normal mg/dL White Blood Count 5.1 4.4-10.8 10^3/uL Red Blood Count 4.10 4.0-5.20 10^6/uL Hemoglobin 13.0 12.2-16.2 g/dL Hematocrit 38.6 36.0-46.0 % Mean Corpuscular Volume 94.2 80.0-100.0 fL Mean Corpuscular Hemoglobin 31.6 28.0-32.0 pg Mean Corpuscular Hemoglobin Concent 33.6 32.0-36.0 g/dL Red Cell Distribution Width 14.3 11.8-14.3 % Platelet Count 190 140-450 10^3/uL Mean Platelet Volume 7.0 6.9-10.8 fL Neutrophils (%) (Auto) 64.8 37.0-80.0 % Lymphocytes (%) (Auto) 17.4 10.0-50.0 % Monocytes (%) (Auto) 8.9 0.0-12.0 % Eosinophils (%) (Auto) 8.1 H 0.0-7.0 % Basophils (%) (Auto) 0.8 0.0-2.0 % Neutrophils # (Auto) 3.3 1.6-8.6 10 ^3/uL Lymphocytes # (Auto) 0.9 0.4-5.4 10 ^3/uL Monocytes # (Auto) 0.5 0-1.3 10 ^3/uL Eosinophils # (Auto) 0.4 0-0.8 10 ^3/uL Basophils # (Auto) 0 0-0.2 10 ^3/uL Nucleated Red Blood Cells 0.0 % Sodium Level 144 136-145 mmol/L Potassium Level 4.3 3.5-5.1 mmol/L Chloride Level 111 H 98-107 mmol/L Carbon Dioxide Level 28 20-31 mmol/L Anion Gap 5 5-15 Blood Urea Nitrogen 19 9-23 mg/dL Creatinine 1.33 H 0.550-1.02 mg/dL Glomerular Filtration Rate Calc 43 >90 mL/min BUN/Creatinine Ratio 14.3 10.0-20.0 Serum Glucose 91 74-106 mg/dL Calcium Level 10.5 H 8.7-10.4 mg/dL Assessment/Plan Assessment/Plan Altered level of consciousness likely due to hypertensive encephalopathy Hypertensive emergency - IV hydralazine 10 mg q.6 as needed for SBP greater than 160 Questionable breakthrough seizure Rule out stroke - ordered head CT: No acute intracranial hemorrhage. Stable findings of old lacunar infarct. - orthostatic VS MATILDE likely hemodynamically mediated/VMN on possible CKD - monitor Atrial fibrillation, paroxysmal - currently holding Eliquis 5 mg b.i.d. Heart failure with reduced ejection fraction of 35% - resumed home medication lisinopril, spironolactone - currently holding Jardiance and metoprolol Hypothyroidism - levothyroxine 150 mcg Psychosis, unspecified - quetiapine 25 mg p.o. daily Goals of care: Full code, discussed for >16 minutes on 09/16/24 Plan discussed with patient Plan discussed with Dr. Greenwood Plan discussed with: Patient, Other (RN) Date of Service: Sep 16, 2024 Billing Provider: NIMA GREENWOOD MD Common Visit Codes: 21435-LOAIWXP INP/OBS CARE (HIGH) Secondary Visit Codes: 07751-BGHSHHJJ CARE PLAN 30 MINUTES ITZEL ALEX Sep 16, 2024 17:31 NIMA GREENWOOD MD Sep 17, 2024 11:14
--- NOTE | 2024-09-16 18:41 | DVH ---
EXAMINATION: AP portable chest radiograph CLINICAL HISTORY: chf COMPARISON: XY CHEST PORTABLE on DOS: 02/09/24, XY CHEST PORTABLE on DOS: 01/28/24, XY CHEST PORTABLE on DOS: 01/22/24 TECHNIQUE: Portable AP upright view of the chest FINDINGS: Stable cardiomegaly Lung magdaleno do not appear significantly changed from 02/09/2024. IMPRESSION: 1. No significant change from February 09, 2024
--- NOTE | 2024-09-16 18:44 | DVH ---
EXAM: CT HEAD WITHOUT CONTRAST INDICATION: r/o stroke TECHNIQUE: CT of the head without intravenous contrast. Radiation Dose Information: CT Dose: CTDI volume is 65.96 mGy. Dose-length product is 1167.39 mGy*cm The dose indicators for CT are the volume Computed Tomography (CT) Dose Index (CTDIvol) and the Dose Length Product (DLP), and are measured in units of mGy and mGy-cm, respectively. These indicators are not patient dose, but values generated from the CT scanner acquisition factors. The report includes radiation exposure data for exposures received during this examination. COMPARISON: CT PELVIS WO CONTRAST on DOS: 03/17/24, CT HEAD WITHOUT CONTRAST on DOS: 02/07/24, CT CT L KNEE WO CONTRAST on DOS: 02/04/24 FINDINGS: There is no evidence of acute intracranial hemorrhage, extra-axial collection, mass effect, midline s hift, herniation or hydrocephalus. No significant change from previous CTs 02/07/2024 The ventricles, sulci and cisterns are age appropriate. The cameron-white differentiation is intact. Patchy periventricular and subcortical white matter hypoattenuation is nonspecific but may be related to small vessel ischemic disease. The visualized paranasal sinuses and mastoid air cells are clear. The surrounding soft tissues and osseous structures are unremarkable. IMPRESSION: 1. No acute intracranial hemorrhage. 2. Stable findings of old lacunar infarct.
[2024-09-16 19:30] VITALS: PULSE 68; RESP 19; O2SAT 94
[2024-09-16 19:46] LABS: COVID19 ANTIGEN SOFIA FIA NEGATIVE (NEGATIVE)
[2024-09-16 20:17] LABS: Folate (Folic Acid) 39.96 ng/mL (>5.38)
[2024-09-16] MEDS: hydrALAZINE HCL 20 MG/ML VL IV PRN (20:31)
[2024-09-16 22:55] VITALS: PULSE 72; RESP 19; O2SAT 95
[2024-09-16] MEDS: QUEtiapine FUMARATE 25 MG TAB PO ONE (23:24)
[2024-09-16] MEDS: SPIRONOLACTONE 25 MG TAB PO ONE (23:25)
[2024-09-16] MEDS ORDERED: LOSARTAN POTASSIUM 25 MG TAB PO ONE (23:35)
[2024-09-16] MEDS ORDERED: diphenhdrAMINE HCL 25 MG CAP PO ONE (23:45)
[2024-09-16] MEDS: METOPROLOL SUCCINATE XL 50 MG TAB PO ONE (23:50)
[2024-09-16] MEDS: LISINOPRIL 5 MG TAB PO ONE (23:50)
[2024-09-17] VITALS (8 sets, daily range): BP systolic 161–170; BP diastolic 75–103; PULSE 65–76; RESP 12–20; TEMP 97.4–98.8; O2SAT 85–95
[2024-09-17] MEDS: hydrALAZINE HCL 20 MG/ML VL IV ONE (01:38)
[2024-09-17] MEDS ORDERED: ACETAMINOPHEN 650 mg PER 20.3 mL UD PO ONE (02:58)
[2024-09-17] MEDS: ACETAMINOPHEN 325 MG TAB PO ONE (04:30)
[2024-09-17] MEDS: ONDANSETRON HCL 4 MG/2 ML VIAL IV ONE (05:02)
--- NOTE | 2024-09-17 05:15 | DVH ---
EXAM: CT STROKE CTH INDICATION: Stroke TECHNIQUE: CT of the head without intravenous contrast. Radiation Dose : 1. Head: CT Dose: CTDI volume is 67.17 mGy. Dose-length product is 1076.44 mGy*cm The dose indicators for CT are the volume Computed Tomography (CT) Dose Index (CTDIvol) and the Dose Length Product (DLP), and are measured in units of mGy and mGy-cm, respectively. These indicators are not patient dose, but values generated from the CT scanner acquisition factors. The report includes radiation exposure data for exposures received during this examination. COMPARISON: CT HEAD WITHOUT CONTRAST on DOS: 09/16/24, CT HEAD WITHOUT CONTRAST on DOS: 02/07/24, CT H EAD WITHOUT CONTRAST on DOS: 01/18/24 FINDINGS: There is no evidence of acute intracranial hemorrhage, extra-axial collection, mass effect, midline s hift, herniation or hydrocephalus. The ventricles, sulci and cisterns are age appropriate. The cameron-white differentiation is intact. Patchy periventricular and subcortical white matter hypoattenuation is nonspecific but may be related to small vessel ischemic disease. The visualized paranasal sinuses and mastoid air cells are clear. The surrounding soft tissues and osseous structures are unremarkable. IMPRESSION: No acute intracranial abnormality. Radiation optimization: All CT scans at this facility use at least one of these dose optimization jude hniques: automated exposure control mA and/or kV adjustment per patient size (includes targeted exam s where dose is matched to clinical indication) or iterative reconstruction.
--- NOTE | 2024-09-17 05:49 | BSKYNEURO ---
[facility] Note # Demographics Consult Type: Acute Stroke Level 1 (0-4.5 hrs) Patient Location: Inpatient First Name: Emily Last Name: Symone Date of : 1955 Age: 69 Gender: Female Facility: [facility] Time of Initial Page (): 09/17/2024, 05:35 Time of Return Call (): 09/17/2024, 05:35 # HPI History: 69 y/o F on apixaban for DVT was admitted yesterday for LLE weakness and fell and hit her head. CT head was negative. Had bloody nose and migraine and head CT showed BG infarct. # Scores Time of exam and NIHSS (): 09/17/2024, 05:39 Level of Consciousness 1a: [0] = Alert; keenly responsive LOC Questions 1b: [0] = Answers both questions correctly LOC Commands 1c: [0] = Performs both tasks correctly Best Gaze 2: [0] = Normal Visual 3: [0] = No visual loss Facial Palsy 4: [1] = Minor paralysis Motor Arm Left 5a: [3] = No effort against gravity Motor Arm Right 5b: [0] = No drift Motor Leg Left 6a: [3] = No effort against gravity Motor Leg Right 6b: [0] = No drift Limb Ataxia 7: [0] = Absent Sensory 8: [0] = Normal Best Language 9: [0] = No aphasia Dysarthria 10: [0] = Normal Extinction and Inattention 11: [0] = No abnormality NIHSS Total: 7 # Exam SBP: 164 DBP: 77 # Data Time Head CT personally read by me (): 09/17/2024, 05:[address]: - no bleed - preliminarily reviewed by me, please refer to radiology read for official reading # Assessment Impression: - Ischemic Stroke (Acute) Strokes appears small vessel in R basal ganglia despite her apixaban use. Risk factors for this include HTN, HLD, # Plan Thrombolytic/Intervention: NOT IV Thrombolysis or IA Intervention candidate Thrombolytic Exclusion (< 3 hour window): - actively on NOAC Thrombolytic Exclusion: > 4.5 hours Intraarterial Exclusion: small vessel syndrome Target Blood Pressure: - SBP < 180 - DBP < 105 Labs: - hemoglobin A1c - lipid panel Imaging: (urgency: routine): - MRI Brain without contrast - CT Angiogram Head and CT Angiogram Neck Diagnostic Test: - echo without bubble study Medication: - aspirin 325 mg daily - start statin with goal of LDL < 70 -hold apixaban until MRI can be done to evaluate extent of stroke. Other: - If patient has any neurological deterioration please call me back immediately - I have discussed my recommendations with the referring provider - LDL < 70 Disposition: continue admission # Logistics Attestation of consult completion: The patient is located at: [facility]. Facility staff participated in the visit. I performed this telemedicine visit from my offsite office utilizing interactive 2 way audio and visual telecommunication technology. Consent: Verbal consent was obtained from the patient and/or family for this encounter. Total time spent in telemedicine encounter: I spent 15 minutes reviewing clinical data and/or imaging, obtaining history, examining the patient, commun icating with the onsite care team, and in preparation of this report. # Demographics First Name: Emily Last Name: Symone Facility: [facility] Yes KEITH ADAM MD Sep 17, 2024 05:49
[2024-09-17] MEDS: LEVOTHYROXINE SODIUM 50 MCG TAB PO SCH (06:00)
[2024-09-17] MEDS ORDERED: hydrALAZINE HCL 20 MG/ML VL IV PRN (06:00)
[2024-09-17] MEDS: ASPirin 325 MG TAB PO ONE (06:09)
[2024-09-17 06:14] LABS: Basophils # (auto) 0 10 ^3/uL (0-0.2); Basophils % (auto) 0.3 % (0.0-2.0); Eosinophils # (auto) 0 10 ^3/uL (0-0.8); Eosinophils % (auto) 0.6 % (0.0-7.0); Hematocrit 39.2 % (36.0-46.0); Hemoglobin 13.1 g/dL (12.2-16.2); Lymphocytes # (auto) 0.4 10 ^3/uL (0.4-5.4); Lymphocytes % (auto) 5.7 % (10.0-50.0); Mean Corpuscular Hemoglobin 31.2 pg (28.0-32.0); Mean Corpuscular Hgb Conc. 33.3 g/dL (32.0-36.0); Mean Corpuscular Volume 93.9 fL (80.0-100.0); Monocytes # (auto) 0.3 10 ^3/uL (0-1.3); Monocytes % (auto) 3.4 % (0.0-12.0); Neutrophils # (auto) 6.7 10 ^3/uL (1.6-8.6); Platelet Count (auto) 189 10^3/uL (140-450); Red Blood Cells 4.18 10^6/uL (4.0-5.20); Red Cell Distribution Width 14.7 % (11.8-14.3); White Blood Cell 7.5 10^3/uL (4.4-10.8)
[2024-09-17 06:23] LABS: Sodium 142 mmol/L (136-145)
[2024-09-17 06:24] LABS: Anion Gap 10 (5-15); Carbon Dioxide 23 mmol/L (20-31)
[2024-09-17 06:25] LABS: Calcium 10.3 mg/dL (8.7-10.4)
[2024-09-17 06:30] LABS: BUN/Creatinine Ratio 12.7 (10.0-20.0); Blood Urea Nitrogen 15 mg/dL (9-23)
[2024-09-17 06:37] LABS: INR 1.08 (0.9-1.15); Partial Thromboplastin Time 27.5 SEC (24.5-34.5); Prothrombin Time 11.4 sec (9.3-11.8)
[2024-09-17] MEDS ORDERED: APIXABAN 5 MG TAB PO SCH (07:00)
[2024-09-17 07:02] LABS: Chloride 109 mmol/L (98-107); Glucose 145 mg/dL (74-106)
--- NOTE | 2024-09-17 11:07 | DVH ---
EXAM: CT ANGIO HEAD/NECK HISTORY: ACUTE STROKE COMPARISON: None TECHNIQUE: CTA imaging of the neck and head was performed following the uneventful administration o f intravenous contrast. Sagittal and coronal reformatted images were obtained from the source data. 3 D/MIP post-processing of the source data set was performed and reviewed by the radiologist. Radiation Dose Information: CT Dose: CTDI volume is 31.05 mGy. Dose-length product is 842.01 mGy*cm All CT scans at this medical facility are performed using dose modulation techniques as appropriate t o a performed exam including the following: Automated exposure control was utilized; adjustment of th e MA and/or KV according to patient size; and use of iterative reconstruction technique. FINDINGS: CTA Neck: Aortic Arch: Conventional branching. Atherosclerotic calcification of the aortic arch noted. Right brachiocephalic artery: Unremarkable. Right carotid artery: Moderate calcified plaque formation of the carotid bulb and proximal ICA with l ess than 50% stenosis. Right subclavian artery: Unremarkable. Right vertebral artery: Mild stenosis of the proximal. Hypoplastic. Left carotid artery: Moderate atherosclerotic calcification of the aortic bulb proximal ICA with up t o 50% stenosis. Left subclavian artery: Unremarkable. Left vertebral artery: Unremarkable. Other: Multinodular thyroid. Multilevel degenerative disc disease of the cervical spine. CTA Head: [place]: The arteries of [place] are unremarkable, without evidence of aneurysm, steno sis or thrombosis. Dural venous: Grossly unremarkable. Other: Moderate paranasal sinus disease with partial opacification of the sphenoid and ethmoid sinuse s. IMPRESSION: 1. No large vessel occlusion or high-grade stenosis in the arteries of the head and neck. No aneurysm is identified.
--- NOTE | 2024-09-17 11:29 | DVHSR ---
APPROVED REPORT EXAM: Two-dimensional and M-mode echocardiogram with Doppler and color Doppler. Blood Pressure: 164/84 mmHg INDICATION CVA/TIA: RISK FACTORS Height: 5'4", Weight: 180 DIMENSIONS LVDd5.5 (3.8-5.7cm)LA (2D)5.2 (1.9-4.0cm)Aortic Root3.5 (2.0-3.7cm) LVDs4.1 (2.5-4.0cm)LA (MM) (1.9-4.0cm)Aortic Cusp Exc0.9 (1.5-2.0cm) EF (%) 50.0 (55-70%)Rt. Atrium4.1 (1.9-4.0cm)Asc. Aorta4.6 cm IVSd1.3 (0.7-1.1cm)RV (D)4.0 (1.8-2.4cm) PWd1.0 (0.7-1.1cm) Mitral Valve MitralMitral Stenosis E wave0.81m/sMV Mean GR.mmHg A wave1.15m/sMV Peak GR.mmHg E/A ratio0.72D MVAcm2 DECEL [id number] 1/2 [place] Aortic Valve Aortic ValveAortic Stenosis V10.77m/[place] Mean GR.12mmHg V22.21m/[place] Peak GR.20mmHg LVOT Diameter2.1 (1.8-2.4cm)Doppler AVA1.21cm2 2D AVA1.73cm2 AI P 1/2 Hvwm797.04ms Pulmonic Valve V21.16m/s Conclusion Lower normal limits of left ventricular systolic function at 50%. There is a grade diastolic dysfunc tion. Normal right ventricular size and dimension. Normal right ventricular systolic function. Normal biatrial size and dimension. The aortic valve is mildly thickened and sclerotic no significant stenosis but mild regurgitation. The mitral valve is mildly thickened there is mild mitral valve regurgitation. Normal tricuspid valve structure and function. The pulmonary valve has mild pulmonary valve regurgitation. No significant pericardial effusion.
[2024-09-17] MEDS: METOPROLOL SUCCINATE XL 50 MG TAB PO SCH (11:36)
[2024-09-17] MEDS: LISINOPRIL 5 MG TAB PO ONE (11:36)
[2024-09-17] MEDS ORDERED: LEVE500T40 PO (11:41)
--- NOTE | 2024-09-17 12:08 | DVH ---
Bilateral lower extremity venous duplex Clinical History: RULE OUT dvt Comparison: US BILAT LOWER DVT on DOS: 02/02/24, US BILAT LOW EXT ART DUPLEX on DOS: 01/25/24, US BILAT LOWER DVT on DOS: 01/20/24 Technique: Duplex Doppler evaluation of the deep venous systems of both lower extremities from the common femora l veins to the popliteal veins including color Doppler and spectral/pulsed waveform analysis was perf ormed. Findings: RIGHT SIDE: The common femoral vein demonstrates appropriate compressibility and waveform variability. There is compressibility/patency of the great saphenous vein at the proximal thigh. The femoral vein demonstrates appropriate compressibility and waveform variability. The deep femoral vein demonstrates appropriate compressibility and waveform variability. The popliteal vein demonstrates appropriate compressibility and waveform variability. There is color flow at the tibioperoneal trunk and in the posterior tibial vein. LEFT SIDE: The common femoral vein demonstrates appropriate compressibility and waveform variability. There is compressibility/patency of the great saphenous vein at the proximal thigh. The femoral vein demonstrates appropriate compressibility and waveform variability. The deep femoral vein demonstrates appropriate compressibility and waveform variability. The popliteal vein demonstrates appropriate compressibility and waveform variability. There is color flow at the tibioperoneal trunk and in the posterior tibial vein. Impression: 1. No right or left femoropopliteal venous thrombosis.
--- NOTE | 2024-09-17 15:34 | DVHPNRES ---
Progress Note Date Seen: Sep 18, 2024 Resident Creating Document: ITZEL ALEX RESIDENT Medical Necessity Reason Pt with a Central, PICC or Fol: No Subjective Review of Systems Patient is a 69-year-old female with past medical history of HFrEF 35%EF, septic arthritis, anemia of chronic disease, hypertension, seizures, coronary artery disease, questionable septic arthritis who came in due to generalized weakness and confusion. According to the patient, last night on 09/15/2024 got up to use the restroom but she felt like she could not stand and her left leg was not moving and she lost her balance, fell on the bed, patient notes that she had a seizure and subsequently noticed that her nose was bleeding. At the scene patient was found to have a blood glucose of 86 and a systolic blood pressure of 199 by the EMS staff. Patient also notices a erythematous rash on her left forearm that has been present for the past 4 weeks, patient states that it started as a rash that bled easily and has been ongoing and progressively worsening. She was recently started on Keppra 1000 mg b.i.d. which was subsequently reduced to Keppra 500 mg b.i.d. owing to patient experiencing unpleasant side effects including spasms, hiccups. On physical exam, patient has normal strength and sensation in bilateral upper and lower extremities. Patient is on eliquis 5mg bid for paroxysmal afib. Past surgical history: Left knee surgery in 2021, left shoulder surgery, cholecystectomy Home medications: Baclofen, apixaban, hydroxyzine, levetiracetam, lisinopril, metoprolol succinate Allergies: Azithromycin, polyethylene glycol, statin, mycin Patient seen and examined at bedside. Patient is alert and oriented to time, place person and responding to all questions. Eyes: No Pain, No Vision change, No Conjunctivae inflammation, No Eyelid inflammation, No Other, No Redness ENT: No Ear pain, No Ear discharge, No Nose pain, No Nose discharge, No Nose congestion, No Mouth pain, No Mouth swelling, No Throat pain, No Throat swelling, No Other Cardiovascular: No Chest Pain, No Palpitations, No Orthopnea, No Paroxysmal No Dyspnea, No Edema, No Lt Headedness, No Other Respiratory: No Cough, No Dry, No Shortness of breath, No SOB with exertion, No Wheezing, No Hemoptysis, No Pleuritic Pain, No Sputum, No Other Gastrointestinal: No Nausea, Vomiting, No Abdominal Pain, No Diarrhea, No Constipation, No Melena, No Hematochezia, No Other Genitourinary: No Dysuria, Frequency, No Incontinence, No Hematuria, No Retention, No Other Musculoskeletal: No other, No neck pain, No shoulder pain, No arm pain, No back pain, No hand pain, No leg pain, No foot pain Skin: No Rash, No Lesions, No Jaundice, No Bruising, No Other Neurologic: Weakness, confusion mild Objective vital signs Vital Sign Date Time Temp Pulse Resp B/P (MAP) Pulse Ox O2 Delivery O2 Flow Rate FiO2 09/17/24 11:36 76 170/84 09/17/24 08:00 12 91 Room Air* 0 21 09/17/24 05:00 98.0 98.0 Total Intake and Output 09/16/24 09/16/24 09/17/24 15:00 23:00 07:00 Intake Total 500 ml 400 ml Output Total 300 ml Balance 500 ml 100 ml medications Current Medications Medications Dose Ordered Sig/Radha Route Start Time Stop Time Status Last Admin Dose Admin Levothyroxine Sodium 150 mcg QAM@0600 PO 09/17/24 06:00 Metoprolol Succinate 25 mg DAILY PO 09/17/24 10:00 09/17/24 11:36 25 MG Hydralazine HCl 10 mg Q6HPRN PRN IV 09/17/24 06:00 Examination General Appearance: Cooperative, Other (AOX2) HEENT: Atraumatic, PERRLA, EOMI, Mucous membr. moist/pink Respiratory: Clear to auscultation, Normal air movement Cardiovascular: Normal S1, Normal S2, Other (systolic murmur heard best over aortic area ) Abdominal: Normal bowel sounds, Soft, No tenderness, No hepatospenomegaly, No masses Extremities: No clubbing, No cyanosis, No edema, Normal pulses, Other (Left forearm erythema and warmth) Neuro: Normal speech, Normal tone, Sensation intact Psych/Mental Status: Mood NL laboratory and microbiology Laboratory Tests 09/17/24 05:57 Test 09/17/24 05:57 Range/Units Serum Glucose 145 H 74-106 mg/dL Microbiology Date/Time Source Procedure Growth Status 09/16/24 19:00 Nose MRSA Screen - Final Complete Labs and/or images reviewed: Labs reviewed by me, Image(s) reviewed by me Problem List/Assessment/Plan Problem List/Assessment/Plan Subacute stroke in right basal ganglia Multiple chronic strokes Possible vascular dementia - head CT: No acute intracranial hemorrhage. Stable findings of old lacunar infarct. - repeat head CT: A focal hypodensity seen involving the right basal ganglia and external capsule, with no associated mass effect. This likely represents an acute onset infarct and adequate clinical settings. Hold lacunar infarcts in the bilateral ganglia capsular regions and centrum semiovale. Ischemic changes in the periventricular deep white matter. Age-related cortical atrophy with prominence of cortical sulci and ventricular system. Bilateral ethmoid and sphenoid sinusitis. - head and neck CT angiography: No large vessel occlusion or high-grade stenosis in the arteries of the head and neck. No aneurysm is identified. - neurology on board - has been 325 mg, atorvastatin 40 mg Parkinson's disease can not be ruled out - outpatient follow up with Neurology recommended Hypertensive emergency, now improving ALOC due to above, improved Heart failure with reduced ejection fraction of 35% - lisinopril 10 mg - metoprolol succinate 25 mg MATILDE on questionable CKD, now improving - monitor Paroxysmal atrial fibrillation, currently stable Secondary hypercoagulable state due to family history - lower extremity USG: No right or left femoropopliteal venous thrombosis Hypothyroidism - levothyroxine 150 mcg Psychosis, unspecified - monitor Goals of care: Full code, discussed for >16 minutes on 09/17/24 Plan discussed with patient Plan discussed with Dr. Godfrey Plan discussed with: Patient, Spouse, Other (RN) My Orders My Orders Orders - ITZEL ALEX RESIDENT Procedure Category Date Status Time Head Without Contrast CT 09/16/24 Resulted 18:07 Chest Portable XY 09/16/24 Resulted 18:07 Electrocardigram EKG 09/16/24 Logged 18:08 Levothyroxine Tablet PHA 09/17/24 In Process (Synthroid Tablet) 06:00 Orthostatic Vital ED NURSING 09/16/24 Transmitted Signs Date of Service: Sep 17, 2024 Billing Provider: CHESTER GODFREY MD Common Visit Codes: [id number] INP/OBS CARE(HIGH) ITZEL ALEX Sep 17, 2024 15:34 CHESTER GODFREY MD Sep 18, 2024 08:39
[2024-09-18] VITALS (8 sets, daily range): BP systolic 131–163; BP diastolic 71–88; PULSE 59–74; RESP 17–19; TEMP 97.7–99.1; O2SAT 96–98
[2024-09-18 06:35] LABS: Basophils # (auto) 0 10 ^3/uL (0-0.2); Basophils % (auto) 0.6 % (0.0-2.0); Eosinophils # (auto) 0.3 10 ^3/uL (0-0.8); Eosinophils % (auto) 4.8 % (0.0-7.0); Hematocrit 37.7 % (36.0-46.0); Hemoglobin 12.9 g/dL (12.2-16.2); Lymphocytes # (auto) 0.9 10 ^3/uL (0.4-5.4); Lymphocytes % (auto) 14.4 % (10.0-50.0); Mean Corpuscular Hemoglobin 32.2 pg (28.0-32.0); Mean Corpuscular Hgb Conc. 34.3 g/dL (32.0-36.0); Mean Corpuscular Volume 93.9 fL (80.0-100.0); Monocytes # (auto) 0.6 10 ^3/uL (0-1.3); Monocytes % (auto) 9.6 % (0.0-12.0); Neutrophils # (auto) 4.4 10 ^3/uL (1.6-8.6); Neutrophils % (auto) 70.6 % (37.0-80.0); Platelet Count (auto) 192 10^3/uL (140-450); Red Blood Cells 4.02 10^6/uL (4.0-5.20); Red Cell Distribution Width 14.3 % (11.8-14.3); White Blood Cell 6.2 10^3/uL (4.4-10.8)
[2024-09-18 06:37] LABS: Anion Gap 10 (5-15); Carbon Dioxide 24 mmol/L (20-31); Potassium 3.7 mmol/L (3.5-5.1); Sodium 143 mmol/L (136-145)
[2024-09-18 06:39] LABS: Calcium 10.3 mg/dL (8.7-10.4)
[2024-09-18 06:43] LABS: Glucose 87 mg/dL (74-106)
[2024-09-18 06:44] LABS: BUN/Creatinine Ratio 12.7 (10.0-20.0); Blood Urea Nitrogen 18 mg/dL (9-23)
[2024-09-18 06:45] LABS: Chloride 109 mmol/L (98-107)
[2024-09-18] MEDS: ASPirin 325 MG TAB PO SCH (10:01)
--- NOTE | 2024-09-18 14:49 | DVHPNRES ---
Progress Note Date Seen: Sep 18, 2024 Resident Creating Document: ITZEL ALEX RESIDENT Medical Necessity Reason Pt with a Central, PICC or Fol: No Subjective Review of Systems Patient is a 69-year-old female with past medical history of HFrEF 35%EF, septic arthritis, anemia of chronic disease, hypertension, seizures, coronary artery disease, questionable septic arthritis who came in due to generalized weakness and confusion. According to the patient, last night on 09/15/2024 got up to use the restroom but she felt like she could not stand and her left leg was not moving and she lost her balance, fell on the bed, patient notes that she had a seizure and subsequently noticed that her nose was bleeding. At the scene patient was found to have a blood glucose of 86 and a systolic blood pressure of 199 by the EMS staff. Patient also notices a erythematous rash on her left forearm that has been present for the past 4 weeks, patient states that it started as a rash that bled easily and has been ongoing and progressively worsening. She was recently started on Keppra 1000 mg b.i.d. which was subsequently reduced to Keppra 500 mg b.i.d. owing to patient experiencing unpleasant side effects including spasms, hiccups. On physical exam, patient has normal strength and sensation in bilateral upper and lower extremities. Patient is on eliquis 5mg bid for paroxysmal afib. Past surgical history: Left knee surgery in 2021, left shoulder surgery, cholecystectomy Home medications: Baclofen, apixaban, hydroxyzine, levetiracetam, lisinopril, metoprolol succinate Allergies: Azithromycin, polyethylene glycol, statin, mycin Patient seen and examined at bedside. Patient is alert and oriented to time, place person and responding to all questions. Patient reports improved headache, nausea and vomiting. However, patient notes increasing tremors which are making it difficult for her to perform actions with her hands. Objective vital signs Vital Sign Date Time Temp Pulse Resp B/P (MAP) Pulse Ox O2 Delivery O2 Flow Rate FiO2 09/18/24 13:00 98.3 63 18 147/77 (100) 96 98.3 09/18/24 08:00 Room Air* 0 21 Total Intake and Output 09/17/24 09/17/24 09/18/24 15:00 23:00 07:00 Intake Total 400 ml 400 ml Output Total 300 ml Balance 100 ml 400 ml medications Current Medications Medications Dose Ordered Sig/Radha Route Start Time Stop Time Status Last Admin Dose Admin Levothyroxine Sodium 150 mcg QAM@0600 PO 09/17/24 06:00 09/18/24 06:11 150 MCG Metoprolol Succinate 25 mg DAILY PO 09/17/24 10:00 09/18/24 10:01 25 MG Hydralazine HCl 10 mg Q6HPRN PRN IV 09/17/24 06:00 Aspirin 325 mg DAILY PO 09/18/24 10:00 09/18/24 10:01 325 MG Atorvastatin Calcium 80 mg HS PO 09/18/24 22:00 Examination General Appearance: Cooperative. Well developed. Well nourished. NAD Head Exam: Normal inspection Neck Exam: Normal inspection. Non-tender. Normal alignment Pulmonary/Respiratory: Chest non-tender. Clear bilateral breath sounds, no crackles, no wheezing. Cardiovascular/Chest: Regular rate and rhythm. No murmurs. No JVD. Peripheral Pulses: 2+ Radial (R). 2+ Radial (L). 2+ Pedal (R). 2+ Pedal (L) Abdominal Exam: Normal bowel sounds. Soft. normal abdomen, no visible veins, Nontender. No hepatospenomegaly. No masses Ankle Exam: Negative ankle edema Upper extremities: Erythematous macular/petechial rash on the right forearm, 3+ strength right upper extremity, 1+ strength left upper extremity Lower extremities: Negative lower extremity edema. 3+ strength right lower extremity, 1+ strength left lower extremity Neuro/Mental Status: A&O x3. Coherent. Thoughts/Psych: Normal thought pattern. Appropriate mood and affect. Good judgement and insight Skin Exam: Normal inspection. Normal color. Warm. Dry. Normal sensations throughout laboratory and microbiology Laboratory Tests 09/18/24 05:23 Test 09/18/24 05:23 Range/Units Serum Glucose 87 74-106 mg/dL Microbiology Date/Time Source Procedure Growth Status 09/16/24 19:00 Nose MRSA Screen - Final Complete Labs and/or images reviewed: Labs reviewed by me, Image(s) reviewed by me Problem List/Assessment/Plan Problem List/Assessment/Plan Subacute stroke in right basal ganglia Multiple chronic strokes Possible vascular dementia - head CT: No acute intracranial hemorrhage. Stable findings of old lacunar infarct. - repeat head CT: A focal hypodensity seen involving the right basal ganglia and external capsule, with no associated mass effect. This likely represents an acute onset infarct and adequate clinical settings. Hold lacunar infarcts in the bilateral ganglia capsular regions and centrum semiovale. Ischemic changes in the periventricular deep white matter. Age-related cortical atrophy with prominence of cortical sulci and ventricular system. Bilateral ethmoid and sphenoid sinusitis. - MRI brain: Acute to subacute infarct extending from the right still radiata to the right lentiform nucleus. There is no evidence of acute hemorrhage. There is no significant surrounding edema or associated mass effect. Multiple scattered small foci of blooming artifact in the right and left cerebrum likely foci chronic petechial hemorrhage. [id number] chronic microvascular white matter ischemic changes. - head and neck CT angiography: No large vessel occlusion or high-grade stenosis in the arteries of the head and neck. No aneurysm is identified. - neurology on board - aspirin 325 mg, atorvastatin 80 mg - patient is scheduled for MRI today Parkinson's disease can not be ruled out - outpatient follow up with Neurology recommended Hypertensive emergency, now improving ALOC due to above, improved Heart failure with reduced ejection fraction of 35% - lisinopril 10 mg - metoprolol succinate 25 mg MATILDE on questionable CKD, now improving - monitor Paroxysmal atrial fibrillation, currently stable Secondary hypercoagulable state due to family history - lower extremity USG: No right or left femoropopliteal venous thrombosis Hypothyroidism - levothyroxine 150 mcg Psychosis, unspecified - monitor Goals of care: Full code, discussed for >16 minutes on 09/17/24 Plan discussed with patient Plan discussed with Dr. Godfrey Plan discussed with: Patient, Spouse, Other (RN) My Orders My Orders Orders - ITZEL ALEX RESIDENT Procedure Category Date Status Time Aspirin Tablet PHA 09/18/24 In Process 10:00 Urine Bacterial ACRHIE 09/18/24 Logged Culture 12:41 Atorvastatin (Lipitor) PHA 09/18/24 In Process 22:00 Comprehensive LAB 09/19/24 Verified Metabolic Panel 04:00 Date of Service: Sep 18, 2024 Billing Provider: CHESTER GODFREY MD Common Visit Codes: [id number] INP/OBS CARE(HIGH) ITZEL ALEX Sep 18, 2024 14:49 CHESTER GODFREY MD Sep 19, 2024 08:50
--- NOTE | 2024-09-18 15:21 | DVH ---
MRI BRAIN WITHOUT CONTRAST CLINICAL HISTORY: ACUTE STROKE TECHNIQUE: Multiplanar, multisequence MR images of the brain without intravenous contrast. Comparison: MRI BRAIN HEAD WO CONTRAST on DOS: 12/02/22 FINDINGS: There is an acute to subacute infarct extending from the right still radiata into the right lentifor m nucleus with associated restricted diffusion and hyperintense T2/FLAIR and subtle hypointense T1 si gnal changes. There is no evidence of acute hemorrhage. There is no significant surrounding edema or associated mass effect. There are multiple scattered small foci of blooming artifact in the right and left cerebrum likely re lated chronic petechial hemorrhages. There are [id number] chronic small-vessel ischemic changes in the supratentorial white matter. There is no hydrocephalus or extra-axial fluid collection. The visualized intracranial vasculature de monstrates appropriate flow-voids. The sagittal midline structures appear unremarkable. The craniocer vical junction is within normal limits. The calvarium demonstrates normal marrow signal. There is sma ll right mastoid effusion. There is mucosal thickening in the ethmoid sinuses. IMPRESSION: 1. Acute to subacute infarct extending from the right still radiata to the right lentiform nucleus. There is no evidence of acute hemorrhage. There is no significant surrounding edema or associated mas s effect. 2. 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 3. [id number] chronic microvascular white matter ischemic changes. HS:Y
[2024-09-18] MEDS: HYDROcodone-ACET 5/325MG TAB PO ONE (21:42)
[2024-09-18] MEDS: ATORVASTATIN 20 MG TAB PO ONE (21:42)
[2024-09-18] MEDS: ATORVASTATIN 20 MG TAB PO SCH (21:47)
[2024-09-18] MEDS ORDERED: ATORVASTATIN 20 MG TAB PO SCH (22:00)
[2024-09-18] MEDS ORDERED: QUEtiapine FUMARATE 25 MG TAB PO SCH (22:00)
[2024-09-19] VITALS (8 sets, daily range): BP systolic 153–178; BP diastolic 68–91; PULSE 58–72; RESP 16–18; TEMP 97.8–98.8; O2SAT 96
[2024-09-19 06:51] LABS: Basophils # (auto) 0 10 ^3/uL (0-0.2); Basophils % (auto) 0.8 % (0.0-2.0); Eosinophils # (auto) 0.4 10 ^3/uL (0-0.8); Eosinophils % (auto) 7.2 % (0.0-7.0); Hematocrit 39.2 % (36.0-46.0); Lymphocytes # (auto) 0.8 10 ^3/uL (0.4-5.4); Lymphocytes % (auto) 13.7 % (10.0-50.0); Mean Corpuscular Hemoglobin 31.5 pg (28.0-32.0); Mean Corpuscular Hgb Conc. 33.2 g/dL (32.0-36.0); Mean Corpuscular Volume 94.9 fL (80.0-100.0); Monocytes # (auto) 0.7 10 ^3/uL (0-1.3); Monocytes % (auto) 10.7 % (0.0-12.0); Neutrophils # (auto) 4.2 10 ^3/uL (1.6-8.6); Neutrophils % (auto) 67.6 % (37.0-80.0); Nucleated Red Blood Cells % 0.1 %; Platelet Count (auto) 184 10^3/uL (140-450); Red Blood Cells 4.13 10^6/uL (4.0-5.20); Red Cell Distribution Width 14.3 % (11.8-14.3); White Blood Cell 6.2 10^3/uL (4.4-10.8)
[2024-09-19 07:16] LABS: Alanine Aminotransferase 15 U/L (7-40); Albumin 3.9 g/dL (3.2-4.8); Alkaline Phosphatase 92 U/L (46-116); Anion Gap 8 (5-15); BUN/Creatinine Ratio 14.4 (10.0-20.0); Blood Urea Nitrogen 20 mg/dL (9-23); Calcium 10.1 mg/dL (8.7-10.4); Carbon Dioxide 26 mmol/L (20-31); Glucose 80 mg/dL (74-106); Potassium 3.9 mmol/L (3.5-5.1); Sodium 143 mmol/L (136-145)
[2024-09-19 07:17] LABS: Bilirubin, Total 0.5 mg/dL (0.2-1.0); Total Protein 6.6 g/dL (5.7-8.2)
[2024-09-19 07:18] LABS: Aspartate Aminotransferase 12 U/L (13-40); Chloride 109 mmol/L (98-107)
[2024-09-19] MEDS: ENOXAPARIN SOD 40 MG/0.4 ML SYRINGE SC SCH (10:56)
[2024-09-19] MEDS: ASPirin 81 mg TAB PO SCH (10:56)
--- NOTE | 2024-09-19 18:02 | DVHINCON2 ---
Date Seen: Sep 19, 2024 Referring Physician MD Zulay Reason for Consultation Hypercoagulable state, evaluation for Watchman device History of Present Illness This is a 69-year-old female who presented to the emergency room via EMS with a chief complaint of generalized weakness for two days prior to arrival. The patient reports generalized weakness with unavailability to ambulate, unsteady gait, and fall injury prompting to call 911. Upon EMS arrival she was found with a systolic blood pressure of 199 and a blood sugar level of 86 ng/dL. W ithin admission she underwent a brain MRI revealing a large acute to subacute infarct extending from the right coronary radiata to the right lentiform nucleus as well as multiple scattered small foci of blooming artifact in the right and left cerebrum likely foci chronic petechial hemorrhage. These findings are concerning as the patient is on Eliquis therapy at home. States she has been compliant with DOAC therapy and reports both parents with unspecified hypercoagulability states. Also reports history of warfarin therapy until 2005 for which she was transitioned to a DOAC stating she gained a large amount of weight an was deemed to be attributed to Coumadin therapy. A 12 lead electrocardiogram revealing a sinus rhythm with a first-degree AV block. Prim [place] [facility] specialist is Dr. Clemente. Significant past medical history includes severe coronary artery disease status post single bypass CABG in 2016 with occluded RCA graft with noted good collateral circulation from the left system toward the distal part of the right coronary system, congestive heart failure with an EF of 35%, paroxysmal atrial fibrillation (on Eliquis and amiodarone), hypertension, history of right leg DVT, history of septic left knee, left lower extremity cellulitis, degenerative disc disease, asthma, and morbid obesity. Past Medical History Past medical history reviewed. No other significant than mentioned above. Past Surgical History Single vessel bypass CABG (2016) Multiple left knee surgeries for septic arthritis Cholecystectomy Family History: FHx: gallstones Other blood disorders G8 MOTHER, Family History Family history reviewed. States both parents suffered from hypercoagulability states. Social History Denies the use of illicit drugs, alcohol, or tobacco use. Allergies: Coded Allergies: Azithromycin (Verified Allergy, Intermediate, DIARRHEA, 11/30/22) Statins (Verified Allergy, Intermediate, DIARRHEA , 11/30/22) Polyethylene Glycol (Verified Allergy, Unknown, VOMIT, 11/16/23) Uncoded Allergies: MYACIN (Allergy, Unknown, 03/11/24) Home Meds Active Scripts Metoprolol Succinate (Toprol Xl) 25 Mg Tab, 1 TAB PO DAILY, #90 TAB 1 Refill Prov:JOSÉ WONG BACKSIDE GRINDER 01/28/24 Reported Medications Levetiracetam (Keppra) 500 Mg Tab, 500 MG PO BID for 30 Days, MG 09/17/24 Baclofen (Baclofen) 10 Mg Tab, 20 MG PO Q8HP PRN for FOR MUSCLE SPASM for 30 Days, MG 03/12/24 Hydroxyzine Pamoate (Hydroxyzine Pamoate) 25 Mg Cap, 1 CAP PO DAILY 02/04/24 Apixaban Base (ELIQUIS) 5 Mg Tab, 1 TAB PO BID 06/05/23 Lisinopril (Lisinopril) 10 Mg Tab, 1 TAB PO DAILY 11/30/22 Home Meds Home medications reviewed. Current Medications Current Medications Medications (Trade) Dose Ordered Sig/Radha Route PRN Reason Start Time Stop Time Status Last Admin Atorvastatin Calcium (Lipitor) 40 mg HS PO 09/18/24 22:00 09/18/24 12:44 DC Quetiapine Fumarate (SEROquel TABLET) 25 mg HS PO 09/18/24 22:00 09/18/24 07:12 DC Atorvastatin Calcium (Lipitor) 80 mg HS PO 09/18/24 22:00 09/18/24 21:47 Aspirin 81 mg DAILY PO 09/19/24 10:00 09/19/24 10:56 Enoxaparin Sodium (Lovenox) 40 mg DAILY SC 09/19/24 10:00 09/19/24 10:56 Review of Systems Constitutional: Generalized weakness Ears, Nose, & Throat: No symptom reported Eyes: No symptom reported Neurological: No symptoms reported Pulmonary/Respiratory: No symptom reported Cardiovascular: No symptom reported Gastrointestinal: No symptom reported Genitourinary: No symptom reported Musculoskeletal: No symptom reported Skin: No symptom reported Psychiatric: No symptom reported Endocrine: No symptom reported Hemotologic/Lymphatic: No symptom reported Vital Signs Vital Signs Date Time Temp Pulse Resp B/P (MAP) Pulse Ox O2 Delivery O2 Flow Rate FiO2 09/19/24 17:20 97.9 72 18 173/91 (118) 96 97.9 09/19/24 07:45 Room Air* 0 21 Physical Exam General Appearance: Cooperative. Well developed. Obese. In no acute distress Head Exam: Normal inspection Neck Exam: Normal inspection. Non-tender. Normal alignment Pulmonary/Respiratory: Chest non-tender. Clear bilateral breath sounds Cardiovascular/Chest: Regular rate and rhythm. S1, S2. NSR. No murmurs. No JVD. Peripheral Pulses: 2+ Radial (R). 2+ Radial (L). 2+ Pedal (R). 2+ Pedal (L) Abdominal Exam: Normal bowel sounds. Soft. Nontender. No hepatospenomegaly. No masses Ankle Exam: Negative ankle edema Lower extremities: Negative lower extremity edema Neuro/Mental Status: A&O x3. Coherent Thoughts/Psych: Normal thought pattern. Appropriate mood and affect. Good judgement and insight Appearance: In no acute distress Skin Exam: Normal inspection. Normal color. Warm. Dry Labs/Diagnostic Data Labs Test 09/19/24 05:53 09/17/24 05:57 09/16/24 19:00 09/16/24 18:57 Range/Units White Blood Count 6.2 4.4-10.8 10^3/uL Red Blood Count 4.13 4.0-5.20 10^6/uL Hemoglobin 13.0 12.2-16.2 g/dL Hematocrit 39.2 36.0-46.0 % Mean Corpuscular Volume 94.9 80.0-100.0 fL Mean Corpuscular Hemoglobin 31.5 28.0-32.0 pg Mean Corpuscular Hemoglobin Concent 33.2 32.0-36.0 g/dL Red Cell Distribution Width 14.3 11.8-14.3 % Platelet Count 184 140-450 10^3/uL Mean Platelet Volume 7.0 6.9-10.8 fL Neutrophils (%) (Auto) 67.6 37.0-80.0 % Lymphocytes (%) (Auto) 13.7 10.0-50.0 % Monocytes (%) (Auto) 10.7 0.0-12.0 % Eosinophils (%) (Auto) 7.2 H 0.0-7.0 % Basophils (%) (Auto) 0.8 0.0-2.0 % Neutrophils # (Auto) 4.2 1.6-8.6 10 ^3/uL Lymphocytes # (Auto) 0.8 0.4-5.4 10 ^3/uL Monocytes # (Auto) 0.7 0-1.3 10 ^3/uL Eosinophils # (Auto) 0.4 0-0.8 10 ^3/uL Basophils # (Auto) 0 0-0.2 10 ^3/uL Nucleated Red Blood Cells 0.1 % Sodium Level 143 136-145 mmol/L Potassium Level 3.9 3.5-5.1 mmol/L Chloride Level 109 H 98-107 mmol/L Carbon Dioxide Level 26 20-31 mmol/L Anion Gap 8 5-15 Blood Urea Nitrogen 20 9-23 mg/dL Creatinine 1.39 H 0.550-1.02 mg/dL Glomerular Filtration Rate Calc 41 >90 mL/min BUN/Creatinine Ratio 14.4 10.0-20.0 Serum Glucose 80 74-106 mg/dL Calcium Level 10.1 8.7-10.4 mg/dL Total Bilirubin 0.5 0.2-1.0 mg/dL Aspartate Amino Transferase (AST) 12 L 13-40 U/L Alanine Aminotransferase (ALT) 15 7-40 U/L Alkaline Phosphatase 92 46-116 U/L Total Protein 6.6 5.7-8.2 g/dL Albumin 3.9 3.2-4.8 g/dL Prothrombin Time 11.4 9.3-11.8 sec Prothrombin Time INR 1.08 0.9-1.15 Activated Partial Thromboplast Time 27.5 24.5-34.5 SEC SARS-CoV-2 Antigen (Rapid) Negative NEGATIVE Troponin I High Sensitivity 24 </=34 ng/L Vitamin B12 Level 468 211-911 pg/mL Folic Acid 39.96 >5.38 ng/mL Thyroid Stimulating Hormone (TSH) 4.30 0.55-4.78 uIU/mL Test 09/16/24 15:54 Range/Units Urine Color Colorless Yellow Urine Clarity Clear Clear Urine pH 7.5 5.0-9.0 Urine Specific [place] 1.011 1.001-1.035 Urine Protein Negative Negative Urine Ketones Negative Negative Urine Blood Negative Negative /uL Urine Nitrite Negative Negative Urine Bilirubin Negative Negative Urine Urobilinogen Normal Negative mg/dL Urine Leukocyte Esterase Negative Negative /uL Urine RBC 1 0 - 4 /hpf Urine WBC 1 0 - 5 /hpf Urine Squamous Epithelial Cells None seen <5 /hpf Urine Bacteria None seen None Seen /hpf Urine Glucose Normal Normal mg/dL Microbiology Date/Time Source Procedure Growth Status 09/16/24 19:00 Nose MRSA Screen - Final Complete Assessment Subacute CVA with highly suspected thrombophilia Paroxysmal atrial fibrillation (on Eliquis and Amiodarone) Hypertensive emergency with chronic petechial hemorrhage Severe coronary artery disease status post single bypass CABG (2016) Chronic compensated HFrEF LVEF 35% Hx multiple chronic strokes Dyslipidemia MATILDE on CKD Morbid obesity Plan/Recommendation (Dr. Mane) Case discussed with Dr. Mane. The patient with a subacute stroke will undergo a transesophageal echocardiogram on 09/22/24. She has a history of paroxysmal atrial fibrillation on Eliquis and amiodarone therapy reporting medical compliance with home medications. She is highly suspected for thrombophilia for which she will undergo a hypercoagulability profile and Hematology consultation to further assess for possible antiphospholipid syndrome or hereditary thrombophilia. Given findings on brain MRI including chronic petechial hemorrhage, we recommend neurological clearance before initiation of heparin drip and subsequent transition to warfarin therapy along with Plavix therapy given history of CAD. Chronic petechial hemorrhage is suspected to be secondary to hypertensive emergencies for which we recommend aggressive blood pressure control. Continue BB and initiate Nifedipine for a target SBP <140 mmHg unless permissive hypertension is indicated by neurological team. In the setting of recurrent strokes despite AC/DOAC therapy or deemed to be contraindicated by Neurological team, the patient could benefit from a left atrial appendage occlusion such as WATCHMAN device. Thank you for allowing us to care for this patient. Please call with any questions or concerns. Critical care: 40 min. This medical document was created using an electronic medical record system with voice recognition software and computerized dictation system. Although this document has been carefully reviewed, there might still be some phonetic and typographical errors. Occasional wrong-word or ``sound- alike substitutions may have occurred due to the inherent limitations of voice recognition software. These areas are purely typographical due to imperfections of the software programs and do not reflect any compromise in the patient's medical care. Please read the chart carefully and recognize, using context, where these substitutions have occurred.t limitations of voice recognition software. These areas are purely typographical due to imperfections of the software programs and do not reflect any compromise in the patient's medical care. Please read the chart carefully and recognize, using context, where these substitutions have occurred. Plan discussed with: Patient, Other Date of Service: Sep 19, 2024 Billing Provider: JULIANNA HOWARD Cardiology Common Codes: [id number] CARE 30-74 MIN JLUIANNA HOWARD Sep 19, 2024 18:02
[2024-09-19] MEDS: NIFEdipine ER 30 MG TAB PO ONE (18:56)
--- NOTE | 2024-09-19 20:48 | DVHPNRES ---
Progress Note Date Seen: Sep 19, 2024 Resident Creating Document: ITZEL ALEX RESIDENT Medical Necessity Reason Pt with a Central, PICC or Fol: No Subjective Review of Systems Patient is a 69-year-old female with past medical history of HFrEF 35%EF, septic arthritis, anemia of chronic disease, hypertension, seizures, coronary artery disease, questionable septic arthritis who came in due to generalized weakness and confusion. According to the patient, last night on 09/15/2024 got up to use the restroom but she felt like she could not stand and her left leg was not moving and she lost her balance, fell on the bed, patient notes that she had a seizure and subsequently noticed that her nose was bleeding. At the scene patient was found to have a blood glucose of 86 and a systolic blood pressure of 199 by the EMS staff. Patient also notices a erythematous rash on her left forearm that has been present for the past 4 weeks, patient states that it started as a rash that bled easily and has been ongoing and progressively worsening. She was recently started on Keppra 1000 mg b.i.d. which was subsequently reduced to Keppra 500 mg b.i.d. owing to patient experiencing unpleasant side effects including spasms, hiccups. On physical exam, patient has normal strength and sensation in bilateral upper and lower extremities. Patient is on eliquis 5mg bid for paroxysmal afib. Past surgical history: Left knee surgery in 2021, left shoulder surgery, cholecystectomy Home medications: Baclofen, apixaban, hydroxyzine, levetiracetam, lisinopril, metoprolol succinate Allergies: Azithromycin, polyethylene glycol, statin, mycin Patient seen and examined at bedside. Patient is alert and oriented to time, place person and responding to all questions. Patient reports improved headache, nausea and vomiting. However, patient notes increasing tremors which are making it difficult for her to perform actions with her hands. Objective vital signs Vital Sign Date Time Temp Pulse Resp B/P (MAP) Pulse Ox O2 Delivery O2 Flow Rate FiO2 09/19/24 18:56 179/61 09/19/24 17:20 97.9 72 18 96 97.9 09/19/24 07:45 Room Air* 0 21 Total Intake and Output 09/18/24 09/18/24 09/19/24 15:00 23:00 07:00 Intake Total 650 ml 500 ml Balance 650 ml 500 ml medications Current Medications Medications Dose Ordered Sig/Radha Route Start Time Stop Time Status Last Admin Dose Admin Levothyroxine Sodium 150 mcg QAM@0600 PO 09/17/24 06:00 09/19/24 06:25 150 MCG Metoprolol Succinate 25 mg DAILY PO 09/17/24 10:00 09/19/24 10:57 25 MG Hydralazine HCl 10 mg Q6HPRN PRN IV 09/17/24 06:00 Atorvastatin Calcium 80 mg HS PO 09/18/24 22:00 09/18/24 21:47 80 MG Aspirin 81 mg DAILY PO 09/19/24 10:00 09/19/24 10:56 81 MG Enoxaparin Sodium 40 mg DAILY SC 09/19/24 10:00 09/19/24 10:56 40 MG Nifedipine 60 mg DAILY PO 09/20/24 10:00 Examination General Appearance: Cooperative. Well developed. Well nourished. NAD Head Exam: Normal inspection Neck Exam: Normal inspection. Non-tender. Normal alignment Pulmonary/Respiratory: Chest non-tender. Clear bilateral breath sounds, no crackles, no wheezing. Cardiovascular/Chest: Regular rate and rhythm. No murmurs. No JVD. Peripheral Pulses: 2+ Radial (R). 2+ Radial (L). 2+ Pedal (R). 2+ Pedal (L) Abdominal Exam: Normal bowel sounds. Soft. normal abdomen, no visible veins, Nontender. No hepatospenomegaly. No masses Ankle Exam: Negative ankle edema Upper extremities: Erythematous macular/petechial rash on the right forearm, 3+ strength right upper extremity, 1+ strength left upper extremity Lower extremities: Negative lower extremity edema. 3+ strength right lower extremity, 1+ strength left lower extremity Neuro/Mental Status: A&O x3. Coherent. Thoughts/Psych: Normal thought pattern. Appropriate mood and affect. Good judgement and insight Skin Exam: Normal inspection. Normal color. Warm. Dry. Normal sensations throughout laboratory and microbiology Laboratory Tests 09/19/24 05:53 Test 09/19/24 05:53 Range/Units Serum Glucose 80 74-106 mg/dL Microbiology Date/Time Source Procedure Growth Status 09/16/24 19:00 Nose MRSA Screen - Final Complete Problem List/Assessment/Plan Problem List/Assessment/Plan Subacute stroke in right basal ganglia Multiple chronic strokes Possible vascular dementia - head CT: No acute intracranial hemorrhage. Stable findings of old lacunar infarct. - repeat head CT: A focal hypodensity seen involving the right basal ganglia and external capsule, with no associated mass effect. This likely represents an acute onset infarct and adequate clinical settings. Hold lacunar infarcts in the bilateral ganglia capsular regions and centrum semiovale. Ischemic changes in the periventricular deep white matter. Age-related cortical atrophy with prominence of cortical sulci and ventricular system. Bilateral ethmoid and sphenoid sinusitis. - MRI brain: Acute to subacute infarct extending from the right still radiata to the right lentiform nucleus. There is no evidence of acute hemorrhage. There is no significant surrounding edema or associated mass effect. Multiple scattered small foci of blooming artifact in the right and left cerebrum likely foci chronic petechial hemorrhage. [id number] chronic microvascular white matter ischemic changes. - head and neck CT angiography: No large vessel occlusion or high-grade stenosis in the arteries of the head and neck. No aneurysm is identified. - neurology on board - aspirin 81 mg, atorvastatin 80 mg - patient is scheduled for MRI today - consulted with Cardiology Parkinson's disease can not be ruled out - outpatient follow up with Neurology recommended Hypertensive emergency, now improving ALOC due to above, improved Heart failure with reduced ejection fraction of 35% - lisinopril 10 mg - metoprolol succinate 25 mg MATILDE on questionable CKD, now improving - monitor Paroxysmal atrial fibrillation, currently stable Secondary hypercoagulable state due to family history - lower extremity USG: No right or left femoropopliteal venous thrombosis Hypothyroidism - levothyroxine 150 mcg Psychosis, unspecified - monitor Goals of care: Full code, discussed for >16 minutes on 09/17/24 Plan discussed with patient Plan discussed with Dr. Godfrey Plan discussed with: Patient, Spouse, Other (RN) My Orders My Orders Orders - ITZEL ALEX RESIDENT Procedure Category Date Status Time Pt Request For Service PT 09/19/24 Logged 07:43 Aspirin Tablet PHA 09/19/24 In Process 10:00 Enoxaparin Sodium PHA 09/19/24 In Process (Lovenox) 10:00 [place] [facility] Consult CONS 09/19/24 Transmitted 16:30 * Cardiology Consult CONS 09/19/24 Transmitted 16:30 Date of Service: Sep 19, 2024 Billing Provider: CHESTER GODFREY MD Common Visit Codes: [id number] INP/OBS CARE(HIGH) ITZEL ALEX RESIDENT Sep 19, 2024 20:48 CHESTER GODFREY MD Sep 22, 2024 08:47
[2024-09-20] VITALS (8 sets, daily range): BP systolic 123–164; BP diastolic 62–78; PULSE 63–90; RESP 17–18; TEMP 97.7–98.4; O2SAT 93–98
[2024-09-20 06:26] LABS: Basophils # (auto) 0 10 ^3/uL (0-0.2); Basophils % (auto) 0.6 % (0.0-2.0); Eosinophils # (auto) 0.4 10 ^3/uL (0-0.8); Eosinophils % (auto) 6.6 % (0.0-7.0); Hematocrit 40.3 % (36.0-46.0); Hemoglobin 13.6 g/dL (12.2-16.2); Lymphocytes # (auto) 0.7 10 ^3/uL (0.4-5.4); Lymphocytes % (auto) 12.4 % (10.0-50.0); Mean Corpuscular Hemoglobin 31.5 pg (28.0-32.0); Mean Corpuscular Hgb Conc. 33.8 g/dL (32.0-36.0); Monocytes # (auto) 0.7 10 ^3/uL (0-1.3); Monocytes % (auto) 11.4 % (0.0-12.0); Platelet Count (auto) 176 10^3/uL (140-450); Red Blood Cells 4.33 10^6/uL (4.0-5.20); Red Cell Distribution Width 14.2 % (11.8-14.3); White Blood Cell 5.7 10^3/uL (4.4-10.8)
[2024-09-20 06:28] LABS: Anion Gap 8 (5-15); Carbon Dioxide 27 mmol/L (20-31); Chloride 106 mmol/L (98-107); Potassium 3.7 mmol/L (3.5-5.1); Sodium 141 mmol/L (136-145)
[2024-09-20 06:29] LABS: Calcium 10.4 mg/dL (8.7-10.4)
[2024-09-20 06:34] LABS: BUN/Creatinine Ratio 16.8 (10.0-20.0); Blood Urea Nitrogen 21 mg/dL (9-23); Glucose 91 mg/dL (74-106)
[2024-09-20] MEDS: IOHEXOL 350 MG/ML 100ML IJ ONE (07:22)
[2024-09-20] MEDS: NIFEdipine ER 30 MG TAB PO SCH (10:18)
--- NOTE | 2024-09-20 11:41 | DVHPN2 ---
Consult Progress Note Subjective Other Systems: Left sided weakness. No cardiac symptoms. Objective vital signs Vital Sign Date Time Temp Pulse Resp B/P (MAP) Pulse Ox O2 Delivery O2 Flow Rate FiO2 09/20/24 10:19 70 123/62 09/20/24 09:00 97.7 18 93 97.7 09/20/24 08:00 Room Air* 0 21 Total Intake and Output 09/19/24 09/19/24 09/20/24 15:00 23:00 07:00 Intake Total 275 ml 0 ml Balance 275 ml 0 ml medications Current Medications Medications Dose Ordered Sig/Radha Route Start Time Stop Time Status Last Admin Dose Admin Levothyroxine Sodium 150 mcg QAM@0600 PO 09/17/24 06:00 09/20/24 06:23 150 MCG Metoprolol Succinate 25 mg DAILY PO 09/17/24 10:00 09/20/24 10:19 25 MG Hydralazine HCl 10 mg Q6HPRN PRN IV 09/17/24 06:00 Atorvastatin Calcium 80 mg HS PO 09/18/24 22:00 09/19/24 22:32 80 MG Aspirin 81 mg DAILY PO 09/19/24 10:00 09/20/24 10:19 81 MG Enoxaparin Sodium 40 mg DAILY SC 09/19/24 10:00 09/20/24 10:19 40 MG Nifedipine 60 mg DAILY PO 09/20/24 10:00 09/20/24 10:18 60 MG Examination: GENERAL:Abnormal (Left-sided weakness), LUNGS:Normal, CVS:Normal, NEURO:Abnormal (Left-sided weakness) laboratory and microbiology Laboratory Tests 09/20/24 05:33 Test 09/20/24 05:33 Range/Units Serum Glucose 91 74-106 mg/dL Problem List/Assessment/Plan Problem List/Assessment/Plan Subacute CVA with highly suspected thrombophilia Paroxysmal atrial fibrillation (on Eliquis and Amiodarone) Hypertensive emergency with chronic petechial hemorrhage Severe coronary artery disease status post single bypass CABG (2015) Chronic compensated HFimEF(echo from 01/19/24 EF 35%, now EF 50%) Hx multiple chronic strokes Dyslipidemia MATILDE on CKD Morbid obesity Plan/Recommendation (Dr. Mane) Transthoracic echocardiogram reveals EF 50%. The patient with a subacute stroke will undergo a transesophageal echocardiogram on 12/30/24. She has a history of paroxysmal atrial fibrillation on Eliquis and amiodarone therapy reporting medical compliance with home medications. She is highly suspected for thrombophilia for which she will undergo a hypercoagulability profile and Hematology consultation to further assess for possible antiphospholipid syndrome or hereditary thrombophilia. Given findings on brain MRI including chronic petechial hemorrhage, we recommend neurological clearance before initiation of heparin drip and subsequent transition to warfarin therapy along with Plavix therapy given history of CAD. Chronic petechial hemorrhage is suspected to be secondary to hypertensive emergencies for which we recommend aggressive blood pressure control. Continue BB and Nifedipine for a target SBP <140 mmHg unless permissive hypertension is indicated by neurological team. In the setting of recurrent strokes despite NOAC/DOAC therapy or deemed to be contraindicated by Neurological team, the patient could benefit from a left atrial appendage occlusion such as WATCHMAN device. Thank you for allowing us to care for this patient. Please call with any questions or concerns. This medical document was created using an electronic medical record system with voice recognition software and computerized dictation system. Although this document has been carefully reviewed, there might still be some phonetic and typographical errors. Occasional wrong-word or ``sound-alike substitutions may have occurred due to the inherent limitations of voice recognition software. These areas are purely typographical due to imperfections of the software programs and do not reflect any compromise in the patient's medical care. Please read the chart carefully and recognize, using context, where these substitutions have occurred.t limitations of voice recognition software. These areas are purely typographical due to imperfections of the software programs and do not reflect any compromise in the patient's medical care. Please read the chart carefully and recognize, using context, where these substitutions have occurred. Plan discussed with: Patient, Spouse Date of Service: Sep 20, 2024 Billing Provider: ROBERTO CAVAZOS Common Visit Codes: [id number] INP/OBS CARE(HIGH) ROBERTO CAVAZOS Sep 20, 2024 11:41
--- NOTE | 2024-09-20 12:11 | DVHPNRES ---
Progress Note Date Seen: Sep 20, 2024 Resident Creating Document: ITZEL ALEX RESIDENT Medical Necessity Reason Pt with a Central, PICC or Fol: No Subjective Review of Systems Patient is a 69-year-old female with past medical history of HFrEF 35%EF, septic arthritis, anemia of chronic disease, hypertension, seizures, coronary artery disease, questionable septic arthritis who came in due to generalized weakness and confusion. According to the patient, last night on 09/15/2024 got up to use the restroom but she felt like she could not stand and her left leg was not moving and she lost her balance, fell on the bed, patient notes that she had a seizure and subsequently noticed that her nose was bleeding. At the scene patient was found to have a blood glucose of 86 and a systolic blood pressure of 199 by the EMS staff. Patient also notices a erythematous rash on her left forearm that has been present for the past 4 weeks, patient states that it started as a rash that bled easily and has been ongoing and progressively worsening. She was recently started on Keppra 1000 mg b.i.d. which was subsequently reduced to Keppra 500 mg b.i.d. owing to patient experiencing unpleasant side effects including spasms, hiccups. On physical exam, patient has normal strength and sensation in bilateral upper and lower extremities. Patient is on eliquis 5mg bid for paroxysmal afib. Past surgical history: Left knee surgery in 2021, left shoulder surgery, cholecystectomy Home medications: Baclofen, apixaban, hydroxyzine, levetiracetam, lisinopril, metoprolol succinate Allergies: Azithromycin, polyethylene glycol, statin, mycin Patient seen and examined at bedside. Patient is alert and oriented to time, place person and responding to all questions. Patient reports improved headache, nausea and vomiting. Left forearm erythema markedly improved. Patient completed PT evaluation yesterday. Repeat neurology consult was placed and Cardiology was also taken on board, patient is scheduled for a KAREL on 09/22/2024. Objective vital signs Vital Sign Date Time Temp Pulse Resp B/P (MAP) Pulse Ox O2 Delivery O2 Flow Rate FiO2 09/20/24 10:19 70 123/62 09/20/24 09:00 97.7 18 93 97.7 09/20/24 08:00 Room Air* 0 21 Total Intake and Output 09/19/24 09/19/24 09/20/24 15:00 23:00 07:00 Intake Total 275 ml 0 ml Balance 275 ml 0 ml medications Current Medications Medications Dose Ordered Sig/Radha Route Start Time Stop Time Status Last Admin Dose Admin Levothyroxine Sodium 150 mcg QAM@0600 PO 09/17/24 06:00 09/20/24 06:23 150 MCG Metoprolol Succinate 25 mg DAILY PO 09/17/24 10:00 09/20/24 10:19 25 MG Hydralazine HCl 10 mg Q6HPRN PRN IV 09/17/24 06:00 Atorvastatin Calcium 80 mg HS PO 09/18/24 22:00 09/19/24 22:32 80 MG Aspirin 81 mg DAILY PO 09/19/24 10:00 09/20/24 10:19 81 MG Enoxaparin Sodium 40 mg DAILY SC 09/19/24 10:00 09/20/24 10:19 40 MG Nifedipine 60 mg DAILY PO 09/20/24 10:00 09/20/24 10:18 60 MG Examination General Appearance: Cooperative. Well developed. Well nourished. NAD Head Exam: Normal inspection Neck Exam: Normal inspection. Non-tender. Normal alignment Pulmonary/Respiratory: Chest non-tender. Clear bilateral breath sounds, no crackles, no wheezing. Cardiovascular/Chest: Regular rate and rhythm. No murmurs. No JVD. Peripheral Pulses: 2+ Radial (R). 2+ Radial (L). 2+ Pedal (R). 2+ Pedal (L) Abdominal Exam: Normal bowel sounds. Soft. normal abdomen, no visible veins, Nontender. No hepatospenomegaly. No masses Ankle Exam: Negative ankle edema Upper extremities: Erythematous macular/petechial rash on the right forearm, i mproving. 3+ strength right upper extremity, 1+ strength left upper extremity Lower extremities: Negative lower extremity edema. 3+ strength right lower extremity, 1+ strength left lower extremity Neuro/Mental Status: A&O x3. Coherent. Thoughts/Psych: Normal thought pattern. Appropriate mood and affect. Good judgement and insight Skin Exam: Normal inspection. Normal color. Warm. Dry. Normal sensations throughout laboratory and microbiology Laboratory Tests 09/20/24 05:33 Test 09/20/24 05:33 Range/Units Serum Glucose 91 74-106 mg/dL Microbiology Date/Time Source Procedure Growth Status 09/16/24 19:00 Nose MRSA Screen - Final Complete Labs and/or images reviewed: Labs reviewed by me, Image(s) reviewed by me Problem List/Assessment/Plan Problem List/Assessment/Plan Subacute stroke in right basal ganglia Multiple chronic strokes Possible vascular dementia - head CT: No acute intracranial hemorrhage. Stable findings of old lacunar infarct. - repeat head CT: A focal hypodensity seen involving the right basal ganglia and external capsule, with no associated mass effect. This likely represents an acute onset infarct and adequate clinical settings. Hold lacunar infarcts in the bilateral ganglia capsular regions and centrum semiovale. Ischemic changes in the periventricular deep white matter. Age-related cortical atrophy with prominence of cortical sulci and ventricular system. Bilateral ethmoid and sphenoid sinusitis. - MRI brain: Acute to subacute infarct extending from the right still radiata to the right lentiform nucleus. There is no evidence of acute hemorrhage. There is no significant surrounding edema or associated mass effect. Multiple scattered small foci of blooming artifact in the right and left cerebrum likely foci chronic petechial hemorrhage. Dhxm-ai-[id number] chronic microvascular white matter ischemic changes. Acute to subacute infarct extending from the right still radiata to the right lentiform nucleus. There is no evidence of acute hemorrhage. There is no significant surrounding edema or associated mass effect. Multiple scattered small foci of blooming artifact in the right and left cerebrum likely foci chronic petechial hemorrhage. Ykop-wa-kgsqjexi chronic microvascular white matter ischemic changes. - head and neck CT angiography: No large vessel occlusion or high-grade stenosis in the arteries of the head and neck. No aneurysm is identified. - neurology on board - aspirin 81 mg, atorvastatin 80 mg - consulted with Cardiology, scheduled for KAREL on 09/22/2024 - repeat neurology consult placed: awaiting neurologic clearance before initiation of heparin drip and subsequently transitioned to warfarin therapy Parkinson's disease can not be ruled out - outpatient follow up with Neurology recommended Hypertensive emergency, now improving ALOC due to above, improved Heart failure with reduced ejection fraction of 35% - lisinopril 10 mg - metoprolol succinate 25 mg - nifedipine 60 mg p.o. daily MATILDE on questionable CKD, now improving - monitor Paroxysmal atrial fibrillation, currently stable Secondary hypercoagulable state due to family history - lower extremity USG: No right or left femoropopliteal venous thrombosis - ordered thrombophilia workup including antithrombin 3 antibody, factor V laden mutation, fibrinogen, lupus anticoagulant, protein C NS antigen - consulted heme oncology Hypothyroidism - levothyroxine 150 mcg Psychosis, unspecified - monitor Goals of care: Full code, discussed for >16 minutes on 09/17/24 Plan discussed with patient Plan discussed with Dr. Greenwood Plan discussed with: Patient, Spouse, Other (RN) My Orders My Orders Orders - ITZEL ALEX RESIDENT Procedure Category Date Status Time [place] Neuro Consult CONS 09/19/24 Transmitted 16:30 * Cardiology Consult CONS 09/19/24 Transmitted 16:30 Date of Service: Sep 20, 2024 Billing Provider: NIMA GREENWOOD MD Common Visit Codes: [id number] INP/OBS CARE(HIGH) ITZEL ALEX RESIDENT Sep 20, 2024 12:11 NIMA GREENWOOD MD Sep 21, 2024 10:35
[2024-09-20] MEDS: MELATONIN 5 MG TAB PO SCH (23:42)
[2024-09-20] MEDS: MELATONIN 5 MG TAB ONE (23:43)
[2024-09-21] VITALS (7 sets, daily range): BP systolic 127–140; BP diastolic 62–70; PULSE 64–86; RESP 17–18; TEMP 97.8–98.3; O2SAT 90–98
[2024-09-21 05:52] LABS: Chloride 107 mmol/L (98-107); Potassium 3.9 mmol/L (3.5-5.1); Sodium 140 mmol/L (136-145)
[2024-09-21 05:53] LABS: Anion Gap 7 (5-15); Calcium 10.2 mg/dL (8.7-10.4); Carbon Dioxide 26 mmol/L (20-31)
[2024-09-21 05:58] LABS: BUN/Creatinine Ratio 17.8 (10.0-20.0); Glucose 91 mg/dL (74-106)
[2024-09-21 06:03] LABS: Blood Urea Nitrogen 23 mg/dL (9-23)
--- NOTE | 2024-09-21 11:24 | DVHPNRES ---
Progress Note Date Seen: Sep 21, 2024 Resident Creating Document: CASANDRA BRAND RESIDENT Medical Necessity Reason Pt with a Central, PICC or Fol: No Subjective Review of Systems pt seen and examined at bedside. mentions no new complaints Awaiting KAREL on 09/21/24 Objective vital signs Vital Sign Date Time Temp Pulse Resp B/P (MAP) Pulse Ox O2 Delivery O2 Flow Rate FiO2 09/21/24 10:13 127/62 09/21/24 10:13 75 09/21/24 07:30 Room Air* 0 21 09/21/24 05:00 98.3 17 95 98.3 Total Intake and Output 09/20/24 09/20/24 09/21/24 15:00 23:00 07:00 Intake Total 480 ml 200 ml Balance 480 ml 200 ml medications Current Medications Medications Dose Ordered Sig/Radha Route Start Time Stop Time Status Last Admin Dose Admin Levothyroxine Sodium 150 mcg QAM@0600 PO 09/17/24 06:00 09/21/24 06:07 150 MCG Metoprolol Succinate 25 mg DAILY PO 09/17/24 10:00 09/21/24 10:13 25 MG Hydralazine HCl 10 mg Q6HPRN PRN IV 09/17/24 06:00 Atorvastatin Calcium 80 mg HS PO 09/18/24 22:00 09/20/24 21:05 80 MG Aspirin 81 mg DAILY PO 09/19/24 10:00 09/21/24 10:12 81 MG Enoxaparin Sodium 40 mg DAILY SC 09/19/24 10:00 09/21/24 10:14 40 MG Nifedipine 60 mg DAILY PO 09/20/24 10:00 09/21/24 10:13 60 MG Melatonin 5 mg HSPRN PO 09/21/24 22:00 09/20/24 23:42 5 MG Examination General Appearance: Cooperative. Well developed. Well nourished. NAD Head Exam: Normal inspection Neck Exam: Normal inspection. Non-tender. Normal alignment Pulmonary/Respiratory: Chest non-tender. Clear bilateral breath sounds, no crackles, no wheezing. Cardiovascular/Chest: Regular rate and rhythm. No murmurs. No JVD. Peripheral Pulses: 2+ Radial (R). 2+ Radial (L). 2+ Pedal (R). 2+ Pedal (L) Abdominal Exam: Normal bowel sounds. Soft. normal abdomen, no visible veins, Nontender. No hepatospenomegaly. No masses Ankle Exam: Negative ankle edema Upper extremities: Erythematous macular/petechial rash on the right forearm, i mproving. 3+ strength right upper extremity, 1+ strength left upper extremity Lower extremities: Negative lower extremity edema. 3+ strength right lower extremity, 1+ strength left lower extremity Neuro/Mental Status: A&O x3. Coherent. Thoughts/Psych: Normal thought pattern. Appropriate mood and affect. Good judgement and insight Skin Exam: Normal inspection. Normal color. Warm. Dry. Normal sensations throughout laboratory and microbiology Laboratory Tests 09/21/24 05:15 09/20/24 05:33 Test 09/21/24 05:15 Range/Units Serum Glucose 91 74-106 mg/dL Microbiology Date/Time Source Procedure Growth Status 09/16/24 19:00 Nose MRSA Screen - Final Complete Problem List/Assessment/Plan Problem List/Assessment/Plan Assessment/plan #Subacute stroke in right basal ganglia #Multiple chronic strokes #Possible vascular dementia - head CT: No acute intracranial hemorrhage. Stable findings of old lacunar infarct. - repeat head CT: A focal hypodensity seen involving the right basal ganglia and external capsule, with no associated mass effect. This likely represents an acute onset infarct and adequate clinical settings. Hold lacunar infarcts in the bilateral ganglia capsular regions and centrum semiovale. Ischemic changes in the periventricular deep white matter. Age-related cortical atrophy with prominence of cortical sulci and ventricular system. Bilateral ethmoid and sphenoid sinusitis. - MRI brain: Acute to subacute infarct extending from the right still radiata to the right lentiform nucleus. There is no evidence of acute hemorrhage. There is no significant surrounding edema or associated mass effect. Multiple scattered small foci of blooming artifact in the right and left cerebrum likely foci chronic petechial hemorrhage. Yvwl-wi-zcoxgiva chronic microvascular white matter ischemic changes. Acute to subacute infarct extending from the right still radiata to the right lentiform nucleus. There is no evidence of acute hemorrhage. There is no significant surrounding edema or associated mass effect. Multiple scattered small foci of blooming artifact in the right and left cerebrum likely foci chronic petechial hemorrhage. Cmye-wg-ehztgfto chronic microvascular white matter ischemic changes. - head and neck CT angiography: No large vessel occlusion or high-grade stenosis in the arteries of the head and neck. No aneurysm is identified. - neurology on board - aspirin 81 mg, atorvastatin 80 mg - consulted with Cardiology, scheduled for KAREL on 09/22/2024 - repeat neurology consult placed: awaiting neurologic clearance before initiation of heparin drip and subsequently transitioned to warfarin therapy #Parkinson's disease can not be ruled out - outpatient follow up with Neurology recommended #Hypertensive emergency, now improving #ALOC due to above, improved #Heart failure with reduced ejection fraction of 35% - lisinopril 10 mg - metoprolol succinate 25 mg - nifedipine 60 mg p.o. daily #MATILDE on questionable CKD, now improving - monitor #Paroxysmal atrial fibrillation, currently stable #Secondary hypercoagulable state due to family history - lower extremity USG: No right or left femoropopliteal venous thrombosis - ordered thrombophilia workup including antithrombin 3 antibody, factor V laden mutation, fibrinogen, lupus anticoagulant, protein C NS antigen - consulted heme oncology Hypothyroidism - levothyroxine 150 mcg Psychosis, unspecified - monitor DVT prophylaxis Lovenox 40mg SC daily Goals of care: Full code, discussed for >21 min Plan discussed with patient Plan discussed with Dr. Ruiz Plan discussed with: Patient, Other Date of Service: Sep 21, 2024 Billing Provider: NIMA RUIZ MD Common Visit Codes: [id number] INP/OBS CARE(HIGH) CASANDRA BRAND RESIDENT Sep 21, 2024 11:24 NIMA RUIZ MD Sep 21, 2024 22:42
--- NOTE | 2024-09-21 14:30 | DVHPN2 ---
Consult Progress Note Subjective Other Systems: Patient in normal sinus rhythm on manager site No cardiac events reported Objective vital signs Vital Sign Date Time Temp Pulse Resp B/P (MAP) Pulse Ox O2 Delivery O2 Flow Rate FiO2 09/21/24 10:13 127/62 09/21/24 10:13 75 09/21/24 08:00 98.2 18 98 98.2 09/21/24 07:30 Room Air* 0 21 Total Intake and Output 09/20/24 09/20/24 09/21/24 15:00 23:00 07:00 Intake Total 480 ml 200 ml Balance 480 ml 200 ml medications Current Medications Medications Dose Ordered Sig/Radha Route Start Time Stop Time Status Last Admin Dose Admin Levothyroxine Sodium 150 mcg QAM@0600 PO 09/17/24 06:00 09/21/24 06:07 150 MCG Metoprolol Succinate 25 mg DAILY PO 09/17/24 10:00 09/21/24 10:13 25 MG Hydralazine HCl 10 mg Q6HPRN PRN IV 09/17/24 06:00 Atorvastatin Calcium 80 mg HS PO 09/18/24 22:00 09/20/24 21:05 80 MG Aspirin 81 mg DAILY PO 09/19/24 10:00 09/21/24 10:12 81 MG Enoxaparin Sodium 40 mg DAILY SC 09/19/24 10:00 09/21/24 10:14 40 MG Nifedipine 60 mg DAILY PO 09/20/24 10:00 09/21/24 10:13 60 MG Melatonin 5 mg HSPRN PO 09/21/24 22:00 09/20/24 23:42 5 MG Examination: GENERAL:Normal (Left-sided weakness), LUNGS:Normal, CVS:Normal, NEURO:Abnormal (Left-sided weakness) laboratory and microbiology Laboratory Tests 09/21/24 05:15 09/20/24 05:33 Test 09/21/24 05:15 Range/Units Serum Glucose 91 74-106 mg/dL Problem List/Assessment/Plan Problem List/Assessment/Plan Subacute CVA with highly suspected thrombophilia Paroxysmal atrial fibrillation (on Eliquis and Amiodarone) Hypertensive emergency with chronic petechial hemorrhage Severe coronary artery disease status post single bypass CABG (2015) Chronic compensated HFimEF(echo from 01/19/24 EF 35%, now EF 50%) Hx multiple chronic strokes Dyslipidemia MATILDE on CKD Morbid obesity Plan/Recommendation (Dr. Mane) Transthoracic echocardiogram reveals EF 50%. The patient with a subacute stroke will undergo a transesophageal echocardiogram on 09/22/24. She has a history of paroxysmal atrial fibrillation on Eliquis and amiodarone therapy reporting medical compliance with home medications. She is highly suspected for thrombophilia for which she will undergo a hypercoagulability profile (pending results) and Hematology consultation to further assess for possible antiphospholipid syndrome or hereditary thrombophilia. Given findings on brain MRI including chronic petechial hemorrhage, we recommend neurological clearance before initiation of heparin drip and subsequent transition to warfarin therapy along with Plavix therapy given history of CAD. Spoke with neurologist who recommends a repeat head CT without contrast. Per , if head CT negative for hemorrhage, okay to initiate patient on heparin drip without bolus and transition to Coumadin. Chronic petechial hemorrhage is suspected to be secondary to hypertensive emergencies for which we recommend aggressive blood pressure control. Continue BB and Nifedipine for a target SBP <140 mmHg unless permissive hypertension is indicated by neurological team. In the setting of recurrent strokes despite NOAC/DOAC therapy or deemed to be contraindicated by Neurological team, the patient could benefit from a left atrial appendage occlusion such as WATCHMAN device. Thank you for allowing us to care for this patient. Please call with any questions or concerns. This medical document was created using an electronic medical record system with voice recognition software and computerized dictation system. Although this document has been carefully reviewed, there might still be some phonetic and typographical errors. Occasional wrong-word or ``sound-alike substitutions may have occurred due to the inherent limitations of voice recognition software. These areas are purely typographical due to imperfections of the software programs and do not reflect any compromise in the patient's medical care. Please read the chart carefully and recognize, using context, where these substitutions have occurred.t limitations of voice recognition software. These areas are purely typographical due to imperfections of the software programs and do not reflect any compromise in the patient's medical care. Please read the chart carefully and recognize, using context, where these substitutions have occurred. Plan discussed with: Patient Date of Service: Sep 21, 2024 Billing Provider: ROBERTO CAVAZOS Common Visit Codes: [id number] INP/OBS CARE(HIGH) ROBERTO CAVAZOS [facility] Sep 21, 2024 14:30
[2024-09-22] VITALS (11 sets, daily range): BP systolic 112–145; BP diastolic 62–93; PULSE 68–87; RESP 13–18; TEMP 98–98.9; O2SAT 93–98
[2024-09-22 08:47] LABS: INR 1.08 (0.9-1.15); Partial Thromboplastin Time 27.5 SEC (24.5-34.5); Prothrombin Time 11.4 sec (9.3-11.8)
--- NOTE | 2024-09-22 10:44 | DVH ---
CT HEAD WITHOUT CONTRAST INDICATION: Assess for hemorrhage EXAM DATE: 09/22/2024 10:21 AM COMPARISON: CT STROKE CTH on DOS: 09/17/24, CT HEAD WITHOUT CONTRAST on DOS: 09/16/24, CT HEAD WITHOU T CONTRAST on DOS: 02/07/24 RADIATION DOSE: CTDIvol: 65.77 mGy, DLP: 1164.2 mGy*cm PROCEDURE: CT scans of the head were obtained from the vertex to the skull base. Sagittal and coronal reconstructions were provided. All CT scans at this medical facility are performed using dose modulation techniques as appropriate t o a performed exam including the following: Automated exposure control was utilized; adjustment of th e MA and/or KV according to patient size; and use of iterative reconstruction technique. FINDINGS: Interval increase in hypodensity of the right basal ganglia/still radiata infarct. There is sulcal and ventricular prominence. The brain otherwise shows normal morphology and cameron-white mat ter differentiation, without intracranial hemorrhage, extra-axial fluid collection, mass effect or ac havasupai large vessel infarct.The basal cisterns are patent. The skull and visible facial bones are intact . The paranasal sinuses, mastoid air cells and middle ear cavities are well-aerated. The soft tissues of the scalp are unremarkable. IMPRESSION: Interval increase in hypodensity of the right basal ganglia/still radiata infarct likely represents an evolving infarct. No hemorrhage is seen.
[2024-09-22] MEDS: LIDOCAINE VISCOUS 2% 15ML UD PO ONE (11:15)
[2024-09-22] MEDS: MIDAZOLAM HCL 2MG/2ML 2ml VIAL (1mg/ml) IV ONE (11:15)
[2024-09-22] MEDS: fentaNYL CITRATE 100 MCG/2 ML VL IV ONE (11:15)
[2024-09-22] MEDS: ONDANSETRON HCL 4 MG/2 ML VIAL IV ONE (11:45)
[2024-09-22] MEDS: ONDANSETRON HCL 4 MG/2 ML VIAL ONE (11:46)
[2024-09-22] MEDS: MIDAZOLAM HCL 2MG/2ML 2ml VIAL (1mg/ml) ONE (12:31)
--- NOTE | 2024-09-22 13:06 | DVHOP2 ---
Operative Report - 2 Report Details Date: 09/22/24 Preop Diagnosis: CVA Postop Diagnosis: Status post samuel. Left atrial thrombus. Surgeon: Finesse Mane MD Anesthesiologist: Conscious sedation Anesthesia: Mac Consent: The patient was informed of the risks and benefits of the procedure. These include but are not limited to complications of anesthesia, postoperative infection, incomplete relief of symptoms, recurrence of symptoms, damage to blood vessels, nerves and tendons, deep venous thrombosis, pulmonary embolism and possible need for repeat surgery in the future. Complications: No complications Findings: Small left atrial thrombus. Indications for Surgery: CVA Name of Procedure Performed Transesophageal echocardiogram Procedure Details Procedure Details: Prior full informed consent obtaining conscious sedation given. The patient was prepped and draped in usual fashion placed in the left lateral and semi-S[place] position patient had lidocaine jelly to gargle and two mg Versed and 50 mcg of fentanyl intravenously. We passed a transesophageal probe without difficulty. Standard views obtained. We could not perform a transgastric approach. There is an island hernia likely. Patient tolerated the procedure well there were no complications. Findings: Technically good study. Sinus rhythm. Left atrial enlargement. Concentric LVH. Valves appear to be structurally normal without intrinsic defects. Left ventricular function is preserved at 50% with normal RV function. There was mild mitral insufficiency with [id number] tricuspid regurgitation. Mild pulmonic insufficiency with no aortic insufficiency. No pericardial effusion. The left atrial appendage did show a small thrombus in the distal segment of the appendage. There was slight pedunculated lesion noted. There is is a large appendage. No other masses or vegetations discernible. Bubble study was negative for crossover within the atrium or ventricle. No atrial or ventricular septal defects identified. Disposition Still a Patient Date of Service: Sep 22, 2024 Billing Provider: FINESSE MANE Sr., MD Cardiology Common Codes: [id number] INP/OBS CARE (High) ( Transesophageal echocardiogram performed) FINESSE MANE Sr., MD Sep 22, 2024 13:06
[2024-09-22] MEDS ORDERED: HEPARIN SODIUM (PORCINE) 5000 UNITS/ML 1ML VIAL IV ONE (13:30)
[2024-09-22 15:07] LABS: Basophils # (auto) 0 10 ^3/uL (0-0.2); Basophils % (auto) 0.6 % (0.0-2.0); Eosinophils # (auto) 0.2 10 ^3/uL (0-0.8); Eosinophils % (auto) 4.3 % (0.0-7.0); Hemoglobin 13.9 g/dL (12.2-16.2); Lymphocytes # (auto) 0.8 10 ^3/uL (0.4-5.4); Lymphocytes % (auto) 15.4 % (10.0-50.0); Mean Corpuscular Hemoglobin 31.4 pg (28.0-32.0); Mean Corpuscular Hgb Conc. 33.8 g/dL (32.0-36.0); Monocytes # (auto) 0.6 10 ^3/uL (0-1.3); Monocytes % (auto) 10.8 % (0.0-12.0); Neutrophils # (auto) 3.7 10 ^3/uL (1.6-8.6); Neutrophils % (auto) 68.9 % (37.0-80.0); Nucleated Red Blood Cells % 0.1 %; Platelet Count (auto) 211 10^3/uL (140-450); Red Blood Cells 4.41 10^6/uL (4.0-5.20); White Blood Cell 5.4 10^3/uL (4.4-10.8)
--- NOTE | 2024-09-22 15:29 | DVHPNRES ---
Progress Note Date Seen: Sep 22, 2024 Resident Creating Document: ITZEL ALEX RESIDENT Medical Necessity Reason Pt with a Central, PICC or Fol: No Subjective Review of Systems Patient is a 69-year-old female with past medical history of HFrEF 35%EF, septic arthritis, anemia of chronic disease, hypertension, seizures, coronary artery disease, questionable septic arthritis who came in due to generalized weakness and confusion. According to the patient, last night on 09/15/2024 got up to use the restroom but she felt like she could not stand and her left leg was not moving and she lost her balance, fell on the bed, patient notes that she had a seizure and subsequently noticed that her nose was bleeding. At the scene patient was found to have a blood glucose of 86 and a systolic blood pressure of 199 by the EMS staff. Patient also notices a erythematous rash on her left forearm that has been present for the past 4 weeks, patient states that it started as a rash that bled easily and has been ongoing and progressively worsening. She was recently started on Keppra 1000 mg b.i.d. which was subsequently reduced to Keppra 500 mg b.i.d. owing to patient experiencing unpleasant side effects including spasms, hiccups. On physical exam, patient has normal strength and sensation in bilateral upper and lower extremities. Patient is on eliquis 5mg bid for paroxysmal afib. Past surgical history: Left knee surgery in 2021, left shoulder surgery, cholecystectomy Home medications: Baclofen, apixaban, hydroxyzine, levetiracetam, lisinopril, metoprolol succinate Allergies: Azithromycin, polyethylene glycol, statin, mycin Patient seen and examined at bedside. Patient is alert and oriented to time, place person and responding to all questions. Patient reports improved headache, nausea and vomiting. Left forearm erythema markedly improved. Patient completed PT evaluation yesterday. Repeat neurology consult was placed and Cardiology was also taken on board, patient completed KAREL today and a repeat noncontrast head CT, was subsequently started on heparin. Objective vital signs Vital Sign Date Time Temp Pulse Resp B/P (MAP) Pulse Ox O2 Delivery O2 Flow Rate FiO2 09/22/24 12:48 68 14 133/76 (95) 95 09/22/24 08:00 98.4 98.4 09/22/24 08:00 Nasal Cannula* 2 28 Total Intake and Output 09/21/24 09/21/24 09/22/24 15:00 23:00 07:00 Intake Total 800 ml 100 ml Balance 800 ml 100 ml medications Current Medications Medications Dose Ordered Sig/Radha Route Start Time Stop Time Status Last Admin Dose Admin Levothyroxine Sodium 150 mcg QAM@0600 PO 09/17/24 06:00 09/21/24 06:07 150 MCG Metoprolol Succinate 25 mg DAILY PO 09/17/24 10:00 09/22/24 10:38 25 MG Hydralazine HCl 10 mg Q6HPRN PRN IV 09/17/24 06:00 Atorvastatin Calcium 80 mg HS PO 09/18/24 22:00 09/21/24 23:03 80 MG Aspirin 81 mg DAILY PO 09/19/24 10:00 09/22/24 10:38 81 MG Nifedipine 60 mg DAILY PO 09/20/24 10:00 09/22/24 10:39 60 MG Melatonin 5 mg HSPRN PO 09/21/24 22:00 09/20/24 23:42 5 MG Heparin Sodium/ Dextrose 250 ml @ 14 mls/hr [id number] IV 09/22/24 20:00 Examination General Appearance: Cooperative. Well developed. Well nourished. NAD Head Exam: Normal inspection Neck Exam: Normal inspection. Non-tender. Normal alignment Pulmonary/Respiratory: Chest non-tender. Clear bilateral breath sounds, no crackles, no wheezing. Cardiovascular/Chest: Regular rate and rhythm. No murmurs. No JVD. Peripheral Pulses: 2+ Radial (R). 2+ Radial (L). 2+ Pedal (R). 2+ Pedal (L) Abdominal Exam: Normal bowel sounds. Soft. normal abdomen, no visible veins, Nontender. No hepatospenomegaly. No masses Ankle Exam: Negative ankle edema Upper extremities: Erythematous macular/petechial rash on the right forearm, i mproving. 3+ strength right upper extremity, 1+ strength left upper extremity Lower extremities: Negative lower extremity edema. 3+ strength right lower extremity, 1+ strength left lower extremity Neuro/Mental Status: A&O x3. Coherent. Thoughts/Psych: Normal thought pattern. Appropriate mood and affect. Good judgement and insight Skin Exam: Normal inspection. Normal color. Warm. Dry. Normal sensations throughout laboratory and microbiology Laboratory Tests 09/22/24 14:51 09/21/24 05:15 Test 09/21/24 05:15 Range/Units Serum Glucose 91 74-106 mg/dL Microbiology Date/Time Source Procedure Growth Status 09/16/24 19:00 Nose MRSA Screen - Final Complete Labs and/or images reviewed: Labs reviewed by me, Image(s) reviewed by me Problem List/Assessment/Plan Problem List/Assessment/Plan Subacute stroke in right basal ganglia, evolving Multiple chronic strokes Possible vascular dementia - head CT: No acute intracranial hemorrhage. Stable findings of old lacunar infarct. - repeat head CT: A focal hypodensity seen involving the right basal ganglia and external capsule, with no associated mass effect. This likely represents an acute onset infarct and adequate clinical settings. Hold lacunar infarcts in the bilateral ganglia capsular regions and centrum semiovale. Ischemic changes in the periventricular deep white matter. Age-related cortical atrophy with prominence of cortical sulci and ventricular system. Bilateral ethmoid and sphenoid sinusitis. - MRI brain: Acute to subacute infarct extending from the right still radiata to the right lentiform nucleus. There is no evidence of acute hemorrhage. There is no significant surrounding edema or associated mass effect. Multiple scattered small foci of blooming artifact in the right and left cerebrum likely foci chronic petechial hemorrhage. Ltmk-in-[id number] chronic microvascular white matter ischemic changes. Acute to subacute infarct extending from the right still radiata to the right lentiform nucleus. There is no evidence of acute hemorrhage. There is no significant surrounding edema or associated mass effect. Multiple scattered small foci of blooming artifact in the right and left cerebrum likely foci chronic petechial hemorrhage. Bjvd-jc-[id number] chronic microvascular white matter ischemic changes. - head and neck CT angiography: No large vessel occlusion or high-grade stenosis in the arteries of the head and neck. No aneurysm is identified. - neurology on board - aspirin 81 mg, atorvastatin 80 mg - consulted with Cardiology, scheduled for KAREL on 09/22/2024 - repeat neurology consult placed evolving nature of the stroke - repeat head CT: Interval increase in hypodensity of the right basal ganglia/still radiata infarct likely represents an evolving infarct. No hemorrhage is seen. - started heparin drip Parkinson's disease can not be ruled out - outpatient follow up with Neurology recommended Hypertensive emergency, now improving ALOC due to above, improved Heart failure with reduced ejection fraction of 35% - lisinopril 10 mg - metoprolol succinate 25 mg - nifedipine 60 mg p.o. daily MATILDE on questionable CKD, now improving - monitor Paroxysmal atrial fibrillation, currently stable Secondary hypercoagulable state due to family history - lower extremity USG: No right or left femoropopliteal venous thrombosis - ordered thrombophilia workup including antithrombin 3 antibody, factor V laden mutation, fibrinogen, lupus anticoagulant, protein C NS antigen - consulted heme oncology Hypothyroidism - levothyroxine 150 mcg Psychosis, unspecified - monitor Goals of care: Full code, discussed for >16 minutes on 09/17/24 Plan discussed with patient Plan discussed with Dr. Greenwood Plan discussed with: Patient, Other (RN) Date of Service: Sep 22, 2024 Billing Provider: NIMA GREENWOOD MD Common Visit Codes: [id number] INP/OBS CARE(HIGH) Secondary Visit Codes: [id number] CARE PLAN 30 MINUTES ITZEL ALEX Sep 22, 2024 15:29 NIMA GREENWOOD MD Sep 23, 2024 11:14
[2024-09-22 16:41] LABS: INR 1.12 (0.9-1.15); Partial Thromboplastin Time 32.2 SEC (24.5-34.5); Prothrombin Time 11.8 sec (9.3-11.8)
[2024-09-22] MEDS: HEPARIN DRIP/D5W 100UNITS/ML 250 ML IV SCH (20:22)
--- NOTE | 2024-09-22 20:22 | BSKYNEURO ---
[facility] [facility] Note # Demographics Consult Type: General Neurology Patient Location: Inpatient First Name: Emily Last Name: Symone Date of : 1955 Age: 69 Facility: [facility] # HPI History: Patient currently admitted for stroke- had KAREL today, plan to start heparin tonight. Deemed failure of NOAC- had stroke despite taking the medication. # Scores Level of Consciousness 1a: [0] = Alert; keenly responsive LOC Questions 1b: [1] = Answers one correctly LOC Commands 1c: [0] = Performs both tasks correctly Best Gaze 2: [0] = Normal Visual 3: [0] = No visual loss Facial Palsy 4: [1] = Minor paralysis Motor Arm Left 5a: [2] = Some effort against gravity Motor Arm Right 5b: [0] = No drift Motor Leg Left 6a: [2] = Some effort against gravity Motor Leg Right 6b: [0] = No drift Limb Ataxia 7: [0] = Absent Sensory 8: [0] = Normal Best Language 9: [0] = No aphasia Dysarthria 10: [1] = Unbi-ob-nqfojxkp dysarthria Extinction and Inattention 11: [0] = No abnormality NIHSS Total: 7 # Assessment Impression: - Ischemic Stroke (Subacute) - Ischemic Stroke (Acute) NIHSS is 7; repeat head CT showed no ICH. KAREL done today; plan to start no bolus heparin # Plan Labs: - comprehensive metabolic panel - CBC Therapy/Evaluation: - PT/OT evaluation Medication: - start statin with goal of LDL < 70 - low dose, no bolus heparin infusion Other: - If patient has any neurological deterioration please call me back immediately - LDL < 70 - telemetry monitoring - neurology referral as outpatient - I have discussed my recommendations with the referring provider Disposition: continue admission # Logistics Attestation of consult completion: The patient is located at: [facility]. Facility staff participated in the visit. I performed this telemedicine visit from my offsite office utilizing interactive 2 way audio and visual telecommunication technology. Total time spent in telemedicine encounter: I spent 10 minutes reviewing clinical data and/or imaging, obtaining history, examining the patient, communicating with the onsite care team, and in preparation of this report. # Demographics First Name: Emily Last Name: ySmone Facility: [facility] Yes KIRK NICHOLS MD Sep 22, 2024 20:21
[2024-09-23] VITALS (7 sets, daily range): BP systolic 102–140; BP diastolic 66–75; PULSE 69–78; RESP 16–19; TEMP 97.3–99.3; O2SAT 96–98
[2024-09-23 02:57] LABS: INR 1.13 (0.9-1.15); Prothrombin Time 11.9 sec (9.3-11.8)
[2024-09-23 02:59] LABS: Partial Thromboplastin Time 98.6 SEC (24.5-34.5)
[2024-09-23] MEDS: HEPARIN DRIP/D5W 100UNITS/ML 250 ML IV SCH (04:02)
[2024-09-23 07:18] LABS: Basophils # (auto) 0 10 ^3/uL (0-0.2); Basophils % (auto) 0.8 % (0.0-2.0); Eosinophils # (auto) 0.3 10 ^3/uL (0-0.8); Eosinophils % (auto) 6.6 % (0.0-7.0); Hematocrit 39.5 % (36.0-46.0); Hemoglobin 13.3 g/dL (12.2-16.2); Lymphocytes # (auto) 0.9 10 ^3/uL (0.4-5.4); Lymphocytes % (auto) 18.4 % (10.0-50.0); Mean Corpuscular Hemoglobin 31.4 pg (28.0-32.0); Mean Corpuscular Hgb Conc. 33.7 g/dL (32.0-36.0); Mean Corpuscular Volume 93.2 fL (80.0-100.0); Monocytes # (auto) 0.6 10 ^3/uL (0-1.3); Monocytes % (auto) 12.4 % (0.0-12.0); Neutrophils # (auto) 3.2 10 ^3/uL (1.6-8.6); Neutrophils % (auto) 61.8 % (37.0-80.0); Platelet Count (auto) 175 10^3/uL (140-450); Red Blood Cells 4.24 10^6/uL (4.0-5.20); White Blood Cell 5.1 10^3/uL (4.4-10.8)
[2024-09-23 11:02] LABS: INR 1.1 (0.9-1.15); Prothrombin Time 11.6 sec (9.3-11.8)
[2024-09-23 11:37] LABS: Partial Thromboplastin Time 71.9 SEC (24.5-34.5)
--- NOTE | 2024-09-23 15:46 | DVHPNRES ---
Progress Note Date Seen: Sep 23, 2024 Resident Creating Document: ITZEL ALEX RESIDENT Medical Necessity Reason Pt with a Central, PICC or Fol: No Subjective Review of Systems Patient is a 69-year-old female with past medical history of HFrEF 35%EF, septic arthritis, anemia of chronic disease, hypertension, seizures, coronary artery disease, questionable septic arthritis who came in due to generalized weakness and confusion. According to the patient, last night on 09/15/2024 got up to use the restroom but she felt like she could not stand and her left leg was not moving and she lost her balance, fell on the bed, patient notes that she had a seizure and subsequently noticed that her nose was bleeding. At the scene patient was found to have a blood glucose of 86 and a systolic blood pressure of 199 by the EMS staff. Patient also notices a erythematous rash on her left forearm that has been present for the past 4 weeks, patient states that it started as a rash that bled easily and has been ongoing and progressively worsening. She was recently started on Keppra 1000 mg b.i.d. which was subsequently reduced to Keppra 500 mg b.i.d. owing to patient experiencing unpleasant side effects including spasms, hiccups. On physical exam, patient has normal strength and sensation in bilateral upper and lower extremities. Patient is on eliquis 5mg bid for paroxysmal afib. Past surgical history: Left knee surgery in 2021, left shoulder surgery, cholecystectomy Home medications: Baclofen, apixaban, hydroxyzine, levetiracetam, lisinopril, metoprolol succinate Allergies: Azithromycin, polyethylene glycol, statin, mycin Patient seen and examined at bedside. Patient is alert and oriented to time, place person and responding to all questions. Patient reports improved headache, nausea and vomiting. Left forearm erythema markedly improved. Patient completed PT evaluation yesterday. Repeat neurology consult was placed and Cardiology was also taken on board, patient completed KAREL today and a repeat noncontrast head CT, was subsequently started on heparin. KAREL showed a small thrombus in the distal segment of the appendage. There was slight pedunculated lesion noted. There is a large appendage. Objective vital signs Vital Sign Date Time Temp Pulse Resp B/P (MAP) Pulse Ox O2 Delivery O2 Flow Rate FiO2 09/23/24 11:01 72 130/74 09/23/24 09:00 98.3 17 96 98.3 09/22/24 20:00 Room Air* 0 21 Total Intake and Output 09/22/24 09/22/24 09/23/24 15:00 23:00 07:00 Intake Total 240 ml 481 ml Balance 240 ml 481 ml medications Current Medications Medications Dose Ordered Sig/Radha Route Start Time Stop Time Status Last Admin Dose Admin Levothyroxine Sodium 150 mcg QAM@0600 PO 09/17/24 06:00 09/23/24 06:00 150 MCG Metoprolol Succinate 25 mg DAILY PO 09/17/24 10:00 09/23/24 11:01 25 MG Atorvastatin Calcium 80 mg HS PO 09/18/24 22:00 09/22/24 20:29 80 MG Aspirin 81 mg DAILY PO 09/19/24 10:00 09/23/24 11:00 81 MG Nifedipine 60 mg DAILY PO 09/20/24 10:00 09/23/24 11:00 60 MG Melatonin 5 mg HSPRN PO 09/21/24 22:00 09/22/24 20:29 5 MG Heparin Sodium/ Dextrose 250 ml @ 11 mls/hr [id number] IV 09/23/24 03:30 09/23/24 04:02 11 MLS/HR Warfarin Sodium RX PROTOCOL PER PHARMACY PO 09/23/24 13:45 UNV Examination General Appearance: Cooperative. Well developed. Well nourished. NAD Head Exam: Normal inspection Neck Exam: Normal inspection. Non-tender. Normal alignment Pulmonary/Respiratory: Chest non-tender. Clear bilateral breath sounds, no crackles, no wheezing. Cardiovascular/Chest: Regular rate and rhythm. No murmurs. No JVD. Peripheral Pulses: 2+ Radial (R). 2+ Radial (L). 2+ Pedal (R). 2+ Pedal (L) Abdominal Exam: Normal bowel sounds. Soft. normal abdomen, no visible veins, Nontender. No hepatospenomegaly. No masses Ankle Exam: Negative ankle edema Upper extremities: Erythematous macular/petechial rash on the right forearm, i mproved. 3+ strength right upper extremity, 1+ strength left upper extremity Lower extremities: Negative lower extremity edema. 3+ strength right lower extremity, 1+ strength left lower extremity Neuro/Mental Status: A&O x3. Coherent. Thoughts/Psych: Normal thought pattern. Appropriate mood and affect. Good judgement and insight Skin Exam: Normal inspection. Normal color. Warm. Dry. Normal sensations throughout laboratory and microbiology Laboratory Tests 09/23/24 05:34 09/21/24 05:15 Test 09/21/24 05:15 Range/Units Serum Glucose 91 74-106 mg/dL Microbiology Date/Time Source Procedure Growth Status 09/16/24 19:00 Nose MRSA Screen - Final Complete Labs and/or images reviewed: Labs reviewed by me, Image(s) reviewed by me Problem List/Assessment/Plan Problem List/Assessment/Plan Subacute stroke in right basal ganglia, evolving Multiple chronic strokes Possible vascular dementia - head CT: No acute intracranial hemorrhage. Stable findings of old lacunar infarct. - repeat head CT: A focal hypodensity seen involving the right basal ganglia and external capsule, with no associated mass effect. This likely represents an acute onset infarct and adequate clinical settings. Hold lacunar infarcts in the bilateral ganglia capsular regions and centrum semiovale. Ischemic changes in the periventricular deep white matter. Age-related cortical atrophy with prominence of cortical sulci and ventricular system. Bilateral ethmoid and sphenoid sinusitis. - MRI brain: Acute to subacute infarct extending from the right still radiata to the right lentiform nucleus. There is no evidence of acute hemorrhage. There is no significant surrounding edema or associated mass effect. Multiple scattered small foci of blooming artifact in the right and left cerebrum likely foci chronic petechial hemorrhage. Ktlv-sj-fyqbgsvv chronic microvascular white matter ischemic changes. Acute to subacute infarct extending from the right still radiata to the right lentiform nucleus. There is no evidence of acute hemorrhage. There is no significant surrounding edema or associated mass effect. Multiple scattered small foci of blooming artifact in the right and left cerebrum likely foci chronic petechial hemorrhage. Eobp-db-etzqmqzw chronic microvascular white matter ischemic changes. - head and neck CT angiography: No large vessel occlusion or high-grade stenosis in the arteries of the head and neck. No aneurysm is identified. - neurology on board - aspirin 81 mg, atorvastatin 80 mg - consulted with Cardiology, completed KAREL: Left atrial appendage showed a small thrombus in the distal segment of the appendix. There was slight pedunculated lesion noted. There is a large appendage. Bubble study was negative for crossover within the atrium or ventricle. - repeat neurology consult placed evolving nature of the stroke - repeat head CT: Interval increase in hypodensity of the right basal ganglia/still radiata infarct likely represents an evolving infarct. No hemorrhage is seen. - started heparin drip - started on warfarin per pharmacy 09/23/2024 Parkinson's disease can not be ruled out - outpatient follow up with Neurology recommended Hypertensive emergency, now improving ALOC due to above, improved Heart failure with reduced ejection fraction of 35% - lisinopril 10 mg - metoprolol succinate 25 mg - nifedipine 60 mg p.o. daily MATILDE on questionable CKD, now improving - monitor Paroxysmal atrial fibrillation, currently stable Secondary hypercoagulable state due to family history - lower extremity USG: No right or left femoropopliteal venous thrombosis - ordered thrombophilia workup including antithrombin 3 antibody, factor V laden mutation, fibrinogen, lupus anticoagulant, protein C NS antigen - consulted heme oncology Hypothyroidism - levothyroxine 150 mcg Psychosis, unspecified - monitor Goals of care: Full code, discussed for >16 minutes on 09/17/24 Plan discussed with patient Plan discussed with Dr. Greenwood Plan discussed with: Patient, Other (RN) My Orders My Orders Orders - ITZEL ALEX Procedure Category Date Status Time D/C Isolation ORDERS 09/22/24 Transmitted 19:13 Date of Service: Sep 23, 2024 Billing Provider: NIMA GREENWOOD MD Common Visit Codes: [id number] INP/OBS CARE(HIGH) ITZEL ALEX Sep 23, 2024 15:46 NIMA GREENWOOD MD Sep 24, 2024 08:29
[2024-09-23 17:09] LABS: INR 1.09 (0.9-1.15); Prothrombin Time 11.5 sec (9.3-11.8)
[2024-09-23 17:11] LABS: Partial Thromboplastin Time 78.7 SEC (24.5-34.5)
--- NOTE | 2024-09-23 17:34 | DVHPN2 ---
Consult Progress Note Objective vital signs Vital Sign Date Time Temp Pulse Resp B/P (MAP) Pulse Ox O2 Delivery O2 Flow Rate FiO2 09/23/24 11:01 72 130/74 09/23/24 09:00 98.3 17 96 98.3 09/23/24 08:00 Nasal Cannula* 2 28 Total Intake and Output 09/22/24 09/22/24 09/23/24 15:00 23:00 07:00 Intake Total 240 ml 481 ml Balance 240 ml 481 ml medications Current Medications Medications Dose Ordered Sig/Radha Route Start Time Stop Time Status Last Admin Dose Admin Levothyroxine Sodium 150 mcg QAM@0600 PO 09/17/24 06:00 09/23/24 06:00 150 MCG Metoprolol Succinate 25 mg DAILY PO 09/17/24 10:00 09/23/24 11:01 25 MG Atorvastatin Calcium 80 mg HS PO 09/18/24 22:00 09/22/24 20:29 80 MG Aspirin 81 mg DAILY PO 09/19/24 10:00 09/23/24 11:00 81 MG Nifedipine 60 mg DAILY PO 09/20/24 10:00 09/23/24 11:00 60 MG Melatonin 5 mg HSPRN PO 09/21/24 22:00 09/22/24 20:29 5 MG Heparin Sodium/ Dextrose 250 ml @ 11 mls/hr [id number] IV 09/23/24 03:30 09/23/24 04:02 11 MLS/HR Warfarin Sodium RX PROTOCOL PER PHARMACY PO 09/23/24 13:45 laboratory and microbiology Laboratory Tests 09/23/24 05:34 09/21/24 05:15 Test 09/21/24 05:15 Range/Units Serum Glucose 91 74-106 mg/dL Problem List/Assessment/Plan Problem List/Assessment/Plan Subacute CVA with highly suspected thrombophilia Left atrial thrombus Paroxysmal atrial fibrillation (on Eliquis and Amiodarone) Hypertensive emergency with chronic petechial hemorrhage Severe coronary artery disease status post single bypass CABG (2015) Chronic compensated HFimEF(echo from 01/19/24 EF 35%, now EF 50%) Hx multiple chronic strokes Dyslipidemia MATILDE on CKD Morbid obesity Plan/Recommendation (Dr. Zaman) Transthoracic echocardiogram reveals EF 50%. This patient was found to have a subacute stroke. Patient does have a history of atrial fibrillation and is on Eliquis therapy at home and reports medical compliance with her medications. She is highly suspected for thrombophilia for which she underwent a hypercoagulability profile (pending results). The patient underwent a transesophageal echocardiogram on 09/22/24 which was negative for atrial or ventricular septal defects, but identified a small left atrial thrombus. A repeat head CT was done and verified no cerebral hemorrhage. Per neurologist, basia Fontaine to initiate heparin drip and bridge the patient onto Coumadin. Case discussed and reviewed with on 09/23/24. Patient already on heparin drip, Coumadin initiated per pharmacy protocol until patient reaches therapeutic INR. Thank you for allowing us to care for this patient. Please call with any questions or concerns. This medical document was created using an electronic medical record system with voice recognition software and computerized dictation system. Although this document has been carefully reviewed, there might still be some phonetic and typographical errors. Occasional wrong-word or ``sound-alike substitutions may have occurred due to the inherent limitations of voice recognition software. These areas are purely typographical due to imperfections of the software programs and do not reflect any compromise in the patient's medical care. Please read the chart carefully and recognize, using context, where these substitutions have occurred.t limitations of voice recognition software. These areas are purely typographical due to imperfections of the software programs and do not reflect any compromise in the patient's medical care. Please read the chart carefully and recognize, using context, where these substitutions have occurred. Plan discussed with: Other (Bedside RN) Dietary Evaluation Review Comments: Encourage and monitor PO intake to meet 75% of her needs Expected Outcomes/Goals: Improved PO intakes Date of Service: Sep 23, 2024 Billing Provider: MARTELL ZAMAN MD Common Visit Codes: [id number] INP/OBS CARE(HIGH) ROBERTO CAVAZOS DYE MAKER Sep 23, 2024 17:34
[2024-09-23] MEDS: WARFARIN SODIUM 2 MG TAB PO ONE (18:17)
[2024-09-24] VITALS (8 sets, daily range): BP systolic 120–141; BP diastolic 65–75; PULSE 63–73; RESP 14–17; TEMP 98.1–99.1; O2SAT 96–99
[2024-09-24 01:00] LABS: INR 1.1 (0.9-1.15); Partial Thromboplastin Time 56.9 SEC (24.5-34.5); Prothrombin Time 11.6 sec (9.3-11.8)
[2024-09-24] MEDS: HEPARIN DRIP/D5W 100UNITS/ML 250 ML IV SCH (02:33)
[2024-09-24 07:47] LABS: Basophils # (auto) 0 10 ^3/uL (0-0.2); Basophils % (auto) 0.7 % (0.0-2.0); Eosinophils # (auto) 0.4 10 ^3/uL (0-0.8); Eosinophils % (auto) 6.4 % (0.0-7.0); Hematocrit 39.6 % (36.0-46.0); Hemoglobin 13.3 g/dL (12.2-16.2); Lymphocytes # (auto) 0.8 10 ^3/uL (0.4-5.4); Lymphocytes % (auto) 13.6 % (10.0-50.0); Mean Corpuscular Hemoglobin 31.4 pg (28.0-32.0); Mean Corpuscular Hgb Conc. 33.5 g/dL (32.0-36.0); Mean Corpuscular Volume 93.7 fL (80.0-100.0); Monocytes # (auto) 0.6 10 ^3/uL (0-1.3); Neutrophils # (auto) 3.8 10 ^3/uL (1.6-8.6); Neutrophils % (auto) 69.3 % (37.0-80.0); Nucleated Red Blood Cells % 0.1 %; Platelet Count (auto) 184 10^3/uL (140-450); Red Blood Cells 4.23 10^6/uL (4.0-5.20); Red Cell Distribution Width 13.8 % (11.8-14.3); White Blood Cell 5.6 10^3/uL (4.4-10.8)
[2024-09-24 07:53] LABS: Chloride 107 mmol/L (98-107); Sodium 140 mmol/L (136-145)
[2024-09-24 07:54] LABS: Anion Gap 7 (5-15); Calcium 10.1 mg/dL (8.7-10.4); Carbon Dioxide 26 mmol/L (20-31)
[2024-09-24 07:58] LABS: INR 1.09 (0.9-1.15); Partial Thromboplastin Time 56.5 SEC (24.5-34.5); Prothrombin Time 11.5 sec (9.3-11.8)
[2024-09-24 07:59] LABS: BUN/Creatinine Ratio 15.7 (10.0-20.0); Blood Urea Nitrogen 20 mg/dL (9-23); Glucose 96 mg/dL (74-106)
[2024-09-24 13:43] LABS: INR 1.08 (0.9-1.15); Partial Thromboplastin Time 57.2 SEC (24.5-34.5); Prothrombin Time 11.4 sec (9.3-11.8)
--- NOTE | 2024-09-24 14:45 | DVHPNRES ---
Progress Note Date Seen: Sep 24, 2024 Resident Creating Document: ITZEL ALEX RESIDENT Medical Necessity Reason Pt with a Central, PICC or Fol: No Subjective Review of Systems Patient is a 69-year-old female with past medical history of HFrEF 35%EF, septic arthritis, anemia of chronic disease, hypertension, seizures, coronary artery disease, questionable septic arthritis who came in due to generalized weakness and confusion. According to the patient, last night on 09/15/2024 got up to use the restroom but she felt like she could not stand and her left leg was not moving and she lost her balance, fell on the bed, patient notes that she had a seizure and subsequently noticed that her nose was bleeding. At the scene patient was found to have a blood glucose of 86 and a systolic blood pressure of 199 by the EMS staff. Patient also notices a erythematous rash on her left forearm that has been present for the past 4 weeks, patient states that it started as a rash that bled easily and has been ongoing and progressively worsening. She was recently started on Keppra 1000 mg b.i.d. which was subsequently reduced to Keppra 500 mg b.i.d. owing to patient experiencing unpleasant side effects including spasms, hiccups. On physical exam, patient has normal strength and sensation in bilateral upper and lower extremities. Patient is on eliquis 5mg bid for paroxysmal afib. Past surgical history: Left knee surgery in 2021, left shoulder surgery, cholecystectomy Home medications: Baclofen, apixaban, hydroxyzine, levetiracetam, lisinopril, metoprolol succinate Allergies: Azithromycin, polyethylene glycol, statin, mycin Patient seen and examined at bedside. Patient is alert and oriented to time, place person and responding to all questions. Patient reports improved headache, nausea and vomiting. Left forearm erythema markedly improved. Patient completed PT evaluation yesterday. Repeat neurology consult was placed and Cardiology was also taken on board, patient completed KAREL on 09/23/24 and a repeat noncontrast head CT, was subsequently started on heparin. KAREL showed a small thrombus in the distal segment of the appendage. There was slight pedunculated lesion noted. There is a large appendage. Objective vital signs Vital Sign Date Time Temp Pulse Resp B/P (MAP) Pulse Ox O2 Delivery O2 Flow Rate FiO2 09/24/24 13:00 99.1 67 16 120/73 (89) 96 99.1 09/24/24 08:00 Nasal Cannula* 2 28 Total Intake and Output 09/23/24 09/23/24 09/24/24 15:00 23:00 07:00 Intake Total 805 ml 100 ml Balance 805 ml 100 ml medications Current Medications Medications Dose Ordered Sig/Radha Route Start Time Stop Time Status Last Admin Dose Admin Levothyroxine Sodium 150 mcg QAM@0600 PO 09/17/24 06:00 09/24/24 06:26 150 MCG Metoprolol Succinate 25 mg DAILY PO 09/17/24 10:00 09/24/24 09:15 25 MG Atorvastatin Calcium 80 mg HS PO 09/18/24 22:00 09/23/24 21:21 80 MG Aspirin 81 mg DAILY PO 09/19/24 10:00 09/24/24 09:15 81 MG Nifedipine 60 mg DAILY PO 09/20/24 10:00 09/24/24 09:16 60 MG Melatonin 5 mg HSPRN PO 09/21/24 22:00 09/23/24 21:21 5 MG Warfarin Sodium RX PROTOCOL PER PHARMACY PO 09/23/24 13:45 Heparin Sodium/ Dextrose 250 ml @ 9 mls/hr Q24H IV 09/24/24 01:15 09/24/24 02:33 9 MLS/HR Examination General Appearance: Cooperative. Well developed. Well nourished. NAD Head Exam: Normal inspection Neck Exam: Normal inspection. Non-tender. Normal alignment Pulmonary/Respiratory: Chest non-tender. Clear bilateral breath sounds, no crackles, no wheezing. Cardiovascular/Chest: Regular rate and rhythm. No murmurs. No JVD. Peripheral Pulses: 2+ Radial (R). 2+ Radial (L). 2+ Pedal (R). 2+ Pedal (L) Abdominal Exam: Normal bowel sounds. Soft. normal abdomen, no visible veins, Nontender. No hepatospenomegaly. No masses Ankle Exam: Negative ankle edema Upper extremities: Erythematous macular/petechial rash on the right forearm, i mproved. 3+ strength right upper extremity, 1+ strength left upper extremity Lower extremities: Negative lower extremity edema. 3+ strength right lower extremity, 1+ strength left lower extremity Neuro/Mental Status: A&O x3. Coherent. Thoughts/Psych: Normal thought pattern. Appropriate mood and affect. Good judgement and insight Skin Exam: Normal inspection. Normal color. Warm. Dry. Normal sensations throughout laboratory and microbiology Laboratory Tests 09/24/24 07:04 Test 09/24/24 07:04 Range/Units Serum Glucose 96 74-106 mg/dL Microbiology Date/Time Source Procedure Growth Status 09/16/24 19:00 Nose MRSA Screen - Final Complete Labs and/or images reviewed: Labs reviewed by me, Image(s) reviewed by me Problem List/Assessment/Plan Problem List/Assessment/Plan Subacute stroke in right basal ganglia, evolving Multiple chronic strokes Possible vascular dementia Left atrial thrombus - head CT: No acute intracranial hemorrhage. Stable findings of old lacunar infarct. - repeat head CT: A focal hypodensity seen involving the right basal ganglia and external capsule, with no associated mass effect. This likely represents an acute onset infarct and adequate clinical settings. Hold lacunar infarcts in the bilateral ganglia capsular regions and centrum semiovale. Ischemic changes in the periventricular deep white matter. Age-related cortical atrophy with prominence of cortical sulci and ventricular system. Bilateral ethmoid and sphenoid sinusitis. - MRI brain: Acute to subacute infarct extending from the right still radiata to the right lentiform nucleus. There is no evidence of acute hemorrhage. There is no significant surrounding edema or associated mass effect. Multiple scattered small foci of blooming artifact in the right and left cerebrum likely foci chronic petechial hemorrhage. [id number] chronic microvascular white matter ischemic changes. - head and neck CT angiography: No large vessel occlusion or high-grade stenosis in the arteries of the head and neck. No aneurysm is identified. - neurology on board - aspirin 81 mg, atorvastatin 80 mg - consulted with Cardiology, completed KAREL: Left atrial appendage showed a small thrombus in the distal segment of the appendix. There was slight pedunculated lesion noted. There is a large appendage. Bubble study was negative for crossover within the atrium or ventricle. - repeat neurology consult placed evolving nature of the stroke - repeat head CT: Interval increase in hypodensity of the right basal ganglia/still radiata infarct likely represents an evolving infarct. No hemorrhage is seen. - started heparin drip - started on warfarin per pharmacy 09/23/2024 Parkinson's disease can not be ruled out - outpatient follow up with Neurology recommended Hypertensive emergency, now improving ALOC due to above, improved Heart failure with improved ejection fraction of (previously 35% on 01/19/2024, now 50% on 09/17/2024) CAD, s/p CABG in 2016 - lisinopril 10 mg - metoprolol succinate 25 mg - nifedipine 60 mg p.o. daily MATILDE on questionable CKD, now improving - monitor Paroxysmal atrial fibrillation, currently stable Secondary hypercoagulable state due to family history - lower extremity USG: No right or left femoropopliteal venous thrombosis - ordered thrombophilia workup including antithrombin 3 antibody, factor V laden mutation, fibrinogen, lupus anticoagulant, protein C NS antigen - consulted heme oncology Hypothyroidism - levothyroxine 150 mcg Psychosis, unspecified - monitor Goals of care: Full code, discussed for >16 minutes on 09/17/24 Plan discussed with patient Plan discussed with Dr. Greenwood Plan discussed with: Patient, Other (RN) Dietary Evaluation Review Comments: Encourage and monitor PO intake to meet 75% of her needs Expected Outcomes/Goals: Improved PO intakes Date of Service: Sep 24, 2024 Billing Provider: NIMA GREENWOOD MD Common Visit Codes: [id number] INP/OBS CARE(MOD) ITZEL ALEX RESIDENT Sep 24, 2024 14:45 NIMA GREENWOOD MD Sep 25, 2024 16:49
[2024-09-24] MEDS: WARFARIN SODIUM 5 MG TAB PO ONE (16:51)
[2024-09-24] MEDS: ACETAMINOPHEN 325 MG TAB PO PRN (21:23)
[2024-09-25] VITALS (9 sets, daily range): BP systolic 109–139; BP diastolic 62–82; PULSE 62–74; RESP 15–18; TEMP 97.8–98.9; O2SAT 92–98
[2024-09-25 06:31] LABS: Basophils # (auto) 0 10 ^3/uL (0-0.2); Basophils % (auto) 0.5 % (0.0-2.0); Eosinophils # (auto) 0.3 10 ^3/uL (0-0.8); Eosinophils % (auto) 5.3 % (0.0-7.0); Hematocrit 37.5 % (36.0-46.0); Hemoglobin 12.5 g/dL (12.2-16.2); Lymphocytes # (auto) 0.7 10 ^3/uL (0.4-5.4); Lymphocytes % (auto) 11.4 % (10.0-50.0); Mean Corpuscular Hgb Conc. 33.2 g/dL (32.0-36.0); Mean Corpuscular Volume 93.3 fL (80.0-100.0); Monocytes # (auto) 0.7 10 ^3/uL (0-1.3); Monocytes % (auto) 12.5 % (0.0-12.0); Neutrophils % (auto) 70.3 % (37.0-80.0); Platelet Count (auto) 178 10^3/uL (140-450); Red Blood Cells 4.02 10^6/uL (4.0-5.20); Red Cell Distribution Width 13.9 % (11.8-14.3); White Blood Cell 5.7 10^3/uL (4.4-10.8)
[2024-09-25 08:02] LABS: INR 1.12 (0.9-1.15); Partial Thromboplastin Time 38.2 SEC (24.5-34.5); Prothrombin Time 11.8 sec (9.3-11.8)
[2024-09-25] MEDS: HEPARIN DRIP/D5W 100UNITS/ML 250 ML IV SCH (08:11)
--- NOTE | 2024-09-25 12:33 | DVHPN2 ---
Consult Progress Note Subjective Other Systems: Patient remains in normal sinus rhythm on cardiac catheterization technician. INR today 1.12 Objective vital signs Vital Sign Date Time Temp Pulse Resp B/P (MAP) Pulse Ox O2 Delivery O2 Flow Rate FiO2 09/25/24 10:28 65 133/67 09/25/24 09:00 98.0 17 96 98.0 09/25/24 08:00 Nasal Cannula* 2 28 Total Intake and Output 09/24/24 09/24/24 09/25/24 15:00 23:00 07:00 Intake Total 450 ml Balance 450 ml medications Current Medications Medications Dose Ordered Sig/Radha Route Start Time Stop Time Status Last Admin Dose Admin Levothyroxine Sodium 150 mcg QAM@0600 PO 09/17/24 06:00 09/25/24 05:11 150 MCG Metoprolol Succinate 25 mg DAILY PO 09/17/24 10:00 09/25/24 10:28 25 MG Atorvastatin Calcium 80 mg HS PO 09/18/24 22:00 09/23/24 21:21 80 MG Aspirin 81 mg DAILY PO 09/19/24 10:00 09/25/24 10:26 81 MG Nifedipine 60 mg DAILY PO 09/20/24 10:00 09/25/24 10:25 60 MG Melatonin 5 mg HSPRN PO 09/21/24 22:00 09/24/24 21:23 5 MG Warfarin Sodium RX PROTOCOL PER PHARMACY PO 09/23/24 13:45 Acetaminophen 650 mg Q6HP PRN PO 09/24/24 20:30 09/24/24 21:23 650 MG Heparin Sodium/ Dextrose 250 ml @ 11 mls/hr [id number] IV 09/25/24 08:11 09/25/24 08:11 11 MLS/HR Examination: GENERAL:Normal, LUNGS:Normal, CVS:Normal, NEURO:Normal (With periods of confusion) laboratory and microbiology Laboratory Tests 09/25/24 05:27 09/24/24 07:04 Test 09/24/24 07:04 Range/Units Serum Glucose 96 74-106 mg/dL Problem List/Assessment/Plan Problem List/Assessment/Plan Subacute CVA with highly suspected thrombophilia Left atrial thrombus Paroxysmal atrial fibrillation (on Eliquis and Amiodarone) Hypertensive emergency with chronic petechial hemorrhage Severe coronary artery disease status post single bypass CABG (2015) Chronic compensated HFimEF(echo from 01/19/24 EF 35%, now EF 50%) Hx multiple chronic strokes Dyslipidemia MATILDE on CKD Morbid obesity Plan/Recommendation (Dr. Zaman) Transthoracic echocardiogram reveals EF 50%. This patient was found to have a subacute stroke. Patient does have a history of atrial fibrillation and is on Eliquis therapy at home and reports medical compliance with her medications. She is highly suspected for thrombophilia for which she underwent a hypercoagulability profile (pending results). The patient underwent a transesophageal echocardiogram on 09/22/24 which was negative for atrial or ventricular septal defects, but identified a small left atrial thrombus. A repeat head CT was done and verified no cerebral hemorrhage. Per neurologist, basia Fontaine to initiate heparin. The patient was initiated on heparin and Coumadin to start bridge process. At this time, INR remains subtherapeutic. We will recommend a goal INR level of 2.5-3 given atrial fibrillation and left atrial thrombus. There is no further inpatient cardiac workup indicated at this time. Please reconsult if needed. Patient recommended to follow up with sandblast or shotblast equipment tender in the outpatient setting in 1-2 weeks post discharge. Patient will need to follow up in [facility]mad[facility]. Thank you for allowing us to care for this patient. Please call with any questions or concerns. This medical document was created using an electronic medical record system with voice recognition software and computerized dictation system. Although this document has been carefully reviewed, there might still be some phonetic and typographical errors. Occasional wrong-word or ``sound-alike substitutions may have occurred due to the inherent limitations of voice recognition software. These areas are purely typographical due to imperfections of the software programs and do not reflect any compromise in the patient's medical care. Please read the chart carefully and recognize, using context, where these substitutions have occurred.t limitations of voice recognition software. These areas are purely typographical due to imperfections of the software programs and do not reflect any compromise in the patient's medical care. Please read the chart carefully and recognize, using context, where these substitutions have occurred. Plan discussed with: Patient Dietary Evaluation Review Comments: Encourage and monitor PO intake to meet 75% of her needs Expected Outcomes/Goals: Improved PO intakes Date of Service: Sep 25, 2024 Billing Provider: MARTELL ZAMAN MD Common Visit Codes: [id number] INP/OBS CARE(HIGH) ROB[facility] CAVAZOS [facility] Sep 25, 2024 12:33
[2024-09-25 16:52] LABS: INR 1.17 (0.9-1.15); Partial Thromboplastin Time 64.2 SEC (24.5-34.5); Prothrombin Time 12.3 sec (9.3-11.8)
[2024-09-25 18:06] LABS: Antithrombin III Antigen 124 % (72-124); Dilute Prothrombin Time(dPT) 41.4 sec (0.0-47.6); PTT-LA 41.2 sec (0.0-43.5); Protein S Antigen Free 102 % (61-136); Proten S Antigen Total 133 % (60-150); Thrombin Time 20.7 sec (0.0-23.0); dPT Confirm Ratio 0.94 Ratio (0.00-1.34); dRVVT 37.9 sec (0.0-47.0)
[2024-09-25] MEDS: WARFARIN SODIUM 5 MG TAB PO ONE (18:39)
[2024-09-25 19:06] LABS: Lupus Interpretation Comment: (.)
--- NOTE | 2024-09-25 19:59 | DVHPNRES ---
Progress Note Date Seen: Sep 25, 2024 Resident Creating Document: ITZEL ALEX RESIDENT Medical Necessity Reason Pt with a Central, PICC or Fol: No Subjective Review of Systems Patient is a 69-year-old female with past medical history of HFrEF 35%EF, septic arthritis, anemia of chronic disease, hypertension, seizures, coronary artery disease, questionable septic arthritis who came in due to generalized weakness and confusion. According to the patient, last night on 09/15/2024 got up to use the restroom but she felt like she could not stand and her left leg was not moving and she lost her balance, fell on the bed, patient notes that she had a seizure and subsequently noticed that her nose was bleeding. At the scene patient was found to have a blood glucose of 86 and a systolic blood pressure of 199 by the EMS staff. Patient also notices a erythematous rash on her left forearm that has been present for the past 4 weeks, patient states that it started as a rash that bled easily and has been ongoing and progressively worsening. She was recently started on Keppra 1000 mg b.i.d. which was subsequently reduced to Keppra 500 mg b.i.d. owing to patient experiencing unpleasant side effects including spasms, hiccups. On physical exam, patient has normal strength and sensation in bilateral upper and lower extremities. Patient is on eliquis 5mg bid for paroxysmal afib. Past surgical history: Left knee surgery in 2021, left shoulder surgery, cholecystectomy Home medications: Baclofen, apixaban, hydroxyzine, levetiracetam, lisinopril, metoprolol succinate Allergies: Azithromycin, polyethylene glycol, statin, mycin Patient seen and examined at bedside. Patient is alert and oriented to time, place person and responding to all questions. Patient reports improved headache, nausea and vomiting. Left forearm erythema markedly improved. Patient completed PT evaluation yesterday. Repeat neurology consult was placed and Cardiology was also taken on board, patient completed KAREL on 09/23/24 and a repeat noncontrast head CT, was subsequently started on heparin. KAREL showed a small thrombus in the distal segment of the appendage. There was slight pedunculated lesion noted. There is a large appendage. Objective vital signs Vital Sign Date Time Temp Pulse Resp B/P (MAP) Pulse Ox O2 Delivery O2 Flow Rate FiO2 09/25/24 17:00 71 18 109/65 (80) 96 09/25/24 17:00 98.9 98.9 09/25/24 08:00 Nasal Cannula* 2 28 Total Intake and Output 09/24/24 09/24/24 09/25/24 15:00 23:00 07:00 Intake Total 450 ml Balance 450 ml medications Current Medications Medications Dose Ordered Sig/Radha Route Start Time Stop Time Status Last Admin Dose Admin Levothyroxine Sodium 150 mcg QAM@0600 PO 09/17/24 06:00 09/25/24 05:11 150 MCG Metoprolol Succinate 25 mg DAILY PO 09/17/24 10:00 09/25/24 10:28 25 MG Atorvastatin Calcium 80 mg HS PO 09/18/24 22:00 Hold 09/23/24 21:21 80 MG Aspirin 81 mg DAILY PO 09/19/24 10:00 09/25/24 10:26 81 MG Nifedipine 60 mg DAILY PO 09/20/24 10:00 09/25/24 10:25 60 MG Melatonin 5 mg HSPRN PO 09/21/24 22:00 09/24/24 21:23 5 MG Warfarin Sodium RX PROTOCOL PER PHARMACY PO 09/23/24 13:45 Acetaminophen 650 mg Q6HP PRN PO 09/24/24 20:30 09/24/24 21:23 650 MG Heparin Sodium/ Dextrose 250 ml @ 11 mls/hr [id number] IV 09/25/24 08:11 09/25/24 08:11 11 MLS/HR Examination General Appearance: Cooperative. Well developed. Well nourished. NAD Head Exam: Normal inspection Neck Exam: Normal inspection. Non-tender. Normal alignment Pulmonary/Respiratory: Chest non-tender. Clear bilateral breath sounds, no crackles, no wheezing. Cardiovascular/Chest: Regular rate and rhythm. No murmurs. No JVD. Peripheral Pulses: 2+ Radial (R). 2+ Radial (L). 2+ Pedal (R). 2+ Pedal (L) Abdominal Exam: Normal bowel sounds. Soft. normal abdomen, no visible veins, Nontender. No hepatospenomegaly. No masses Ankle Exam: Negative ankle edema Upper extremities: Erythematous macular/petechial rash on the right forearm, i mproved. 3+ strength right upper extremity, 1+ strength left upper extremity Lower extremities: Negative lower extremity edema. 3+ strength right lower extremity, 1+ strength left lower extremity Neuro/Mental Status: A&O x3. Coherent. Thoughts/Psych: Normal thought pattern. Appropriate mood and affect. Good judgement and insight Skin Exam: Normal inspection. Normal color. Warm. Dry. Normal sensations throughout laboratory and microbiology Laboratory Tests 09/25/24 05:27 09/24/24 07:04 Test 09/24/24 07:04 Range/Units Serum Glucose 96 74-106 mg/dL Microbiology Date/Time Source Procedure Growth Status 09/16/24 19:00 Nose MRSA Screen - Final Complete Labs and/or images reviewed: Labs reviewed by me, Image(s) reviewed by me Problem List/Assessment/Plan Problem List/Assessment/Plan Subacute stroke in right basal ganglia, evolving Multiple chronic strokes Possible vascular dementia Left atrial thrombus - head CT: No acute intracranial hemorrhage. Stable findings of old lacunar infarct. - repeat head CT: A focal hypodensity seen involving the right basal ganglia and external capsule, with no associated mass effect. This likely represents an acute onset infarct and adequate clinical settings. Hold lacunar infarcts in the bilateral ganglia capsular regions and centrum semiovale. Ischemic changes in the periventricular deep white matter. Age-related cortical atrophy with prominence of cortical sulci and ventricular system. Bilateral ethmoid and sphenoid sinusitis. - MRI brain: Acute to subacute infarct extending from the right still radiata to the right lentiform nucleus. There is no evidence of acute hemorrhage. There is no significant surrounding edema or associated mass effect. Multiple scattered small foci of blooming artifact in the right and left cerebrum likely foci chronic petechial hemorrhage. [id number] chronic microvascular white matter ischemic changes. - head and neck CT angiography: No large vessel occlusion or high-grade stenosis in the arteries of the head and neck. No aneurysm is identified. - neurology on board - aspirin 81 mg, atorvastatin 80 mg - consulted with Cardiology, completed KAREL: Left atrial appendage showed a small thrombus in the distal segment of the appendix. There was slight pedunculated lesion noted. There is a large appendage. Bubble study was negative for crossover within the atrium or ventricle. - repeat neurology consult placed evolving nature of the stroke - repeat head CT: Interval increase in hypodensity of the right basal ganglia/still radiata infarct likely represents an evolving infarct. No hemorrhage is seen. - started heparin drip - started on warfarin per pharmacy 09/23/2024 Parkinson's disease can not be ruled out - outpatient follow up with Neurology recommended Hypertensive emergency, now improving ALOC due to above, improved Heart failure with improved ejection fraction of (previously 35% on 01/19/2024, now 50% on 09/17/2024) CAD, s/p CABG in 2016 - lisinopril 10 mg - metoprolol succinate 25 mg - nifedipine 60 mg p.o. daily MATILDE on questionable CKD, now improving - monitor Paroxysmal atrial fibrillation, currently stable Secondary hypercoagulable state due to family history - lower extremity USG: No right or left femoropopliteal venous thrombosis - ordered thrombophilia workup including antithrombin 3 antibody, factor V laden mutation, fibrinogen, lupus anticoagulant, protein C NS antigen - consulted heme oncology Hypothyroidism - levothyroxine 150 mcg Psychosis, unspecified - monitor Goals of care: Full code, discussed for >16 minutes on 09/17/24 Plan discussed with patient Plan discussed with Dr. Greenwood Plan discussed with: Patient, Other My Orders My Orders Orders - ITZEL ALEX RESIDENT Procedure Category Date Status Time * Wound Consult CONS 09/24/24 Transmitted * Tree Trimming Line Technician CONS 09/25/24 Transmitted Consult Dietary Evaluation Review Comments: Encourage and monitor PO intake to meet 75% of her needs Expected Outcomes/Goals: Improved PO intakes Date of Service: Sep 25, 2024 Billing Provider: NIMA GREENWOOD MD Common Visit Codes: [id number] INP/OBS CARE(MOD) ITZEL ALEX Sep 25, 2024 19:59 NIMA GREENWOOD MD Sep 29, 2024 19:46
[2024-09-25 20:29] LABS: INR 1.19 (0.9-1.15); Prothrombin Time 12.5 sec (9.3-11.8)
[2024-09-25 20:35] LABS: Partial Thromboplastin Time 72.3 SEC (24.5-34.5)
[2024-09-26] VITALS (7 sets, daily range): BP systolic 113–128; BP diastolic 64–71; PULSE 55–66; RESP 18–20; TEMP 97.4–98.8; O2SAT 96–98
[2024-09-26 02:38] LABS: INR 1.18 (0.9-1.15); Prothrombin Time 12.4 sec (9.3-11.8)
[2024-09-26 02:43] LABS: Partial Thromboplastin Time 86.5 SEC (24.5-34.5)
[2024-09-26] MEDS: HEPARIN DRIP/D5W 100UNITS/ML 250 ML IV SCH (03:49)
[2024-09-26 09:55] LABS: INR 1.19 (0.9-1.15); Partial Thromboplastin Time 59.5 SEC (24.5-34.5); Prothrombin Time 12.5 sec (9.3-11.8)
--- NOTE | 2024-09-26 16:22 | DVHPNRES ---
Progress Note Date Seen: Sep 26, 2024 Resident Creating Document: ITZEL ALEX RESIDENT Medical Necessity Reason Pt with a Central, PICC or Fol: No Subjective Review of Systems Patient is a 69-year-old female with past medical history of HFrEF 35%EF, septic arthritis, anemia of chronic disease, hypertension, seizures, coronary artery disease, questionable septic arthritis who came in due to generalized weakness and confusion. According to the patient, last night on 09/15/2024 got up to use the restroom but she felt like she could not stand and her left leg was not moving and she lost her balance, fell on the bed, patient notes that she had a seizure and subsequently noticed that her nose was bleeding. At the scene patient was found to have a blood glucose of 86 and a systolic blood pressure of 199 by the EMS staff. Patient also notices a erythematous rash on her left forearm that has been present for the past 4 weeks, patient states that it started as a rash that bled easily and has been ongoing and progressively worsening. She was recently started on Keppra 1000 mg b.i.d. which was subsequently reduced to Keppra 500 mg b.i.d. owing to patient experiencing unpleasant side effects including spasms, hiccups. On physical exam, patient has normal strength and sensation in bilateral upper and lower extremities. Patient is on eliquis 5mg bid for paroxysmal afib. Past surgical history: Left knee surgery in 2021, left shoulder surgery, cholecystectomy Home medications: Baclofen, apixaban, hydroxyzine, levetiracetam, lisinopril, metoprolol succinate Allergies: Azithromycin, polyethylene glycol, statin, mycin Patient seen and examined at bedside. Patient is alert and oriented to time, place person and responding to all questions. Patient reports improved headache, nausea and vomiting. Left forearm erythema markedly improved. Patient completed PT evaluation yesterday. Repeat neurology consult was placed and Cardiology was also taken on board, patient completed KAREL on 09/23/24 and a repeat noncontrast head CT, was subsequently started on heparin. KAREL showed a small thrombus in the distal segment of the appendage. There was slight pedunculated lesion noted. There is a large appendage. Objective vital signs Vital Sign Date Time Temp Pulse Resp B/P (MAP) Pulse Ox O2 Delivery O2 Flow Rate FiO2 09/26/24 13:00 98.8 60 18 120/64 (82) 97 98.8 09/26/24 08:00 Nasal Cannula* 2 28 Total Intake and Output 09/25/24 09/25/24 09/26/24 15:00 23:00 07:00 Intake Total 800 ml 315 ml Balance 800 ml 315 ml medications Current Medications Medications Dose Ordered Sig/Radha Route Start Time Stop Time Status Last Admin Dose Admin Levothyroxine Sodium 150 mcg QAM@0600 PO 09/17/24 06:00 09/26/24 05:10 150 MCG Metoprolol Succinate 25 mg DAILY PO 09/17/24 10:00 09/26/24 09:45 25 MG Atorvastatin Calcium 80 mg HS PO 09/18/24 22:00 09/25/24 21:17 80 MG Aspirin 81 mg DAILY PO 09/19/24 10:00 09/26/24 09:45 81 MG Nifedipine 60 mg DAILY PO 09/20/24 10:00 09/26/24 09:45 60 MG Melatonin 5 mg HSPRN PO 09/21/24 22:00 09/25/24 21:17 5 MG Warfarin Sodium RX PROTOCOL PER PHARMACY PO 09/23/24 13:45 Acetaminophen 650 mg Q6HP PRN PO 09/24/24 20:30 09/25/24 21:17 650 MG Heparin Sodium/ Dextrose 250 ml @ 9 mls/hr Q24H IV 09/26/24 03:15 09/26/24 03:49 9 MLS/HR Examination General Appearance: Cooperative. Well developed. Well nourished. NAD Head Exam: Normal inspection Neck Exam: Normal inspection. Non-tender. Normal alignment Pulmonary/Respiratory: Chest non-tender. Clear bilateral breath sounds, no crackles, no wheezing. Cardiovascular/Chest: Regular rate and rhythm. No murmurs. No JVD. Peripheral Pulses: 2+ Radial (R). 2+ Radial (L). 2+ Pedal (R). 2+ Pedal (L) Abdominal Exam: Normal bowel sounds. Soft. normal abdomen, no visible veins, Nontender. No hepatospenomegaly. No masses Ankle Exam: Negative ankle edema Upper extremities: Erythematous macular/petechial rash on the right forearm, i mproved. 3+ strength right upper extremity, 1+ strength left upper extremity Lower extremities: Negative lower extremity edema. 3+ strength right lower extremity, 1+ strength left lower extremity Neuro/Mental Status: A&O x3. Coherent. Thoughts/Psych: Normal thought pattern. Appropriate mood and affect. Good judgement and insight Skin Exam: Normal inspection. Normal color. Warm. Dry. Normal sensations throughout laboratory and microbiology Laboratory Tests 09/25/24 05:27 09/24/24 07:04 Test 09/24/24 07:04 Range/Units Serum Glucose 96 74-106 mg/dL Microbiology Date/Time Source Procedure Growth Status 09/16/24 19:00 Nose MRSA Screen - Final Complete Labs and/or images reviewed: Labs reviewed by me, Image(s) reviewed by me Problem List/Assessment/Plan Problem List/Assessment/Plan Subacute stroke in right basal ganglia, evolving Multiple chronic strokes Possible vascular dementia Left atrial thrombus - head CT: No acute intracranial hemorrhage. Stable findings of old lacunar infarct. - repeat head CT: A focal hypodensity seen involving the right basal ganglia and external capsule, with no associated mass effect. This likely represents an acute onset infarct and adequate clinical settings. Hold lacunar infarcts in the bilateral ganglia capsular regions and centrum semiovale. Ischemic changes in the periventricular deep white matter. Age-related cortical atrophy with prominence of cortical sulci and ventricular system. Bilateral ethmoid and sphenoid sinusitis. - MRI brain: Acute to subacute infarct extending from the right still radiata to the right lentiform nucleus. There is no evidence of acute hemorrhage. There is no significant surrounding edema or associated mass effect. Multiple scattered small foci of blooming artifact in the right and left cerebrum likely foci chronic petechial hemorrhage. [id number]-[id number] chronic microvascular white matter ischemic changes. - head and neck CT angiography: No large vessel occlusion or high-grade stenosis in the arteries of the head and neck. No aneurysm is identified. - neurology on board - aspirin 81 mg, atorvastatin 80 mg - consulted with Cardiology, completed KAREL: Left atrial appendage showed a small thrombus in the distal segment of the appendix. There was slight pedunculated lesion noted. There is a large appendage. Bubble study was negative for crossover within the atrium or ventricle. - repeat neurology consult placed evolving nature of the stroke - repeat head CT: Interval increase in hypodensity of the right basal ganglia/still radiata infarct likely represents an evolving infarct. No hemorrhage is seen. - started heparin drip - started on warfarin per pharmacy 09/23/2024 Parkinson's disease can not be ruled out - outpatient follow up with Neurology recommended Hypertensive emergency, now improving ALOC due to above, improved Heart failure with improved ejection fraction of (previously 35% on 01/19/2024, now 50% on 09/17/2024) CAD, s/p CABG in 2016 - lisinopril 10 mg - metoprolol succinate 25 mg - nifedipine 60 mg p.o. daily MATILDE on questionable CKD, now improving - monitor Paroxysmal atrial fibrillation, currently stable Secondary hypercoagulable state due to family history - lower extremity USG: No right or left femoropopliteal venous thrombosis - ordered thrombophilia workup including antithrombin 3 antibody, factor V laden mutation, fibrinogen, lupus anticoagulant, protein C NS antigen - consulted heme oncology Hypothyroidism - levothyroxine 150 mcg Psychosis, unspecified - monitor Goals of care: Full code, discussed for 20 minutes Plan discussed with patient Plan discussed with Dr. Epps Plan discussed with: Patient, Other (RN) Dietary Evaluation Review Comments: Encourage and monitor PO intake to meet 75% of her needs Expected Outcomes/Goals: Improved PO intakes Addendum Addendum Addendum I was physically present for the driver portions of the service provided to patient by THE RESIDENT. I have reviewed the documentation, discussed the case with resident and agree with the resident's documentation except as noted. Also the patient's clinical case was discussed with the patient's nurse. This medical document was created using an electronic medical record system with computerized dictation system. Although this document has been carefully reviewed, there might still be some phonetic and typographical errors. These areas are purely typographical due to imperfections of the software programs, and do not reflect any compromise in the patient's medical care. Late signature. Date of Service: Sep 26, 2024 Billing Provider: SANTIAGO EPPS MD Common Visit Codes: 17497-[id number] INP/OBS CARE(HIGH) Secondary Visit Codes: 10570-[id number] CARE PLAN 30 MINUTES (20 minutes) ITZEL ALEX RESIDENT Sep 26, 2024 16:22 SANTIAGO EPPS MD Sep 27, 2024 06:23
[2024-09-26 16:27] LABS: INR 1.28 (0.9-1.15); Partial Thromboplastin Time 58.6 SEC (24.5-34.5); Prothrombin Time 13.3 sec (9.3-11.8)
[2024-09-26 18:06] LABS: Protein C Antigen 59 % (60-150)
[2024-09-26] MEDS: WARFARIN SODIUM 2 MG TAB PO ONE (18:14)
[2024-09-26 21:59] LABS: INR 1.34 (0.9-1.15); Prothrombin Time 13.9 sec (9.3-11.8)
[2024-09-27] VITALS (7 sets, daily range): BP systolic 121–138; BP diastolic 61–74; PULSE 58–67; RESP 16–18; TEMP 97.3–98.9; O2SAT 96–98
[2024-09-27 09:48] LABS: Basophils # (auto) 0 10 ^3/uL (0-0.2); Basophils % (auto) 0.4 % (0.0-2.0); Eosinophils # (auto) 0.3 10 ^3/uL (0-0.8); Eosinophils % (auto) 4.5 % (0.0-7.0); Hematocrit 35.5 % (36.0-46.0); Hemoglobin 12.1 g/dL (12.2-16.2); Lymphocytes # (auto) 0.7 10 ^3/uL (0.4-5.4); Lymphocytes % (auto) 10.7 % (10.0-50.0); Mean Corpuscular Hemoglobin 31.6 pg (28.0-32.0); Mean Corpuscular Hgb Conc. 34.2 g/dL (32.0-36.0); Mean Corpuscular Volume 92.5 fL (80.0-100.0); Monocytes # (auto) 0.8 10 ^3/uL (0-1.3); Monocytes % (auto) 13.5 % (0.0-12.0); Neutrophils # (auto) 4.5 10 ^3/uL (1.6-8.6); Neutrophils % (auto) 70.9 % (37.0-80.0); Platelet Count (auto) 184 10^3/uL (140-450); Red Blood Cells 3.83 10^6/uL (4.0-5.20); Red Cell Distribution Width 13.5 % (11.8-14.3); White Blood Cell 6.3 10^3/uL (4.4-10.8)
[2024-09-27 10:07] LABS: INR 1.6 (0.9-1.15); Partial Thromboplastin Time 63.5 SEC (24.5-34.5); Prothrombin Time 16.4 sec (9.3-11.8)
[2024-09-27] MEDS: WARFARIN SODIUM 2 MG TAB PO ONE (18:34)
[2024-09-27] MEDS ORDERED: CALAMINE TOPical LOTION180 ML TOP PRN (19:15)
--- NOTE | 2024-09-27 19:34 | DVHPNRES ---
Progress Note Date Seen: Sep 27, 2024 Resident Creating Document: CASANDRA BRAND RESIDENT Medical Necessity Reason Pt with a Central, PICC or Fol: No Subjective Review of Systems pt seen and examined at bedside mentions itching and bluish discoloration of skin, in the right arm around the old peripheral IV line site no other complaints Objective vital signs Vital Sign Date Time Temp Pulse Resp B/P (MAP) Pulse Ox O2 Delivery O2 Flow Rate FiO2 09/27/24 16:48 98.9 64 17 132/71 (91) 96 98.9 09/27/24 07:30 Nasal Cannula* 2 28 Total Intake and Output 09/26/24 09/26/24 09/27/24 14:59 22:59 06:59 Intake Total 1180 ml 200 ml Balance 1180 ml 200 ml medications Current Medications Medications Dose Ordered Sig/Radha Route Start Time Stop Time Status Last Admin Dose Admin Levothyroxine Sodium 150 mcg QAM@0600 PO 09/17/24 06:00 09/27/24 06:02 150 MCG Metoprolol Succinate 25 mg DAILY PO 09/17/24 10:00 09/27/24 09:30 25 MG Atorvastatin Calcium 80 mg HS PO 09/18/24 22:00 09/26/24 22:42 80 MG Aspirin 81 mg DAILY PO 09/19/24 10:00 09/27/24 09:31 81 MG Nifedipine 60 mg DAILY PO 09/20/24 10:00 09/27/24 09:31 60 MG Melatonin 5 mg HSPRN PO 09/21/24 22:00 09/26/24 22:42 5 MG Warfarin Sodium RX PROTOCOL PER PHARMACY PO 09/23/24 13:45 Acetaminophen 650 mg Q6HP PRN PO 09/24/24 20:30 09/25/24 21:17 650 MG Heparin Sodium/ Dextrose 250 ml @ 9 mls/hr Q24H IV 09/26/24 03:15 09/27/24 04:45 9 MLS/HR Calamine 1 applic QIDP PRN TOP 09/27/24 19:15 Examination General Appearance: Cooperative. Well developed. Well nourished. NAD Head Exam: Normal inspection Neck Exam: Normal inspection. Non-tender. Normal alignment Pulmonary/Respiratory: Chest non-tender. Clear bilateral breath sounds, no crackles, no wheezing. Cardiovascular/Chest: Regular rate and rhythm. No murmurs. No JVD. Peripheral Pulses: 2+ Radial (R). 2+ Radial (L). 2+ Pedal (R). 2+ Pedal (L) Abdominal Exam: Normal bowel sounds. Soft. normal abdomen, no visible veins, Nontender. No hepatospenomegaly. No masses Ankle Exam: Negative ankle edema Upper extremities: Erythematous macular/petechial rash on the right forearm, i mproved. 3+ strength right upper extremity, 1+ strength left upper extremity Lower extremities: Negative lower extremity edema. 3+ strength right lower extremity, 1+ strength left lower extremity Neuro/Mental Status: A&O x3. Coherent. Thoughts/Psych: Normal thought pattern. Appropriate mood and affect. Good judgement and insight Skin Exam: bluish discoloration of the skin, right forearm, non-tender laboratory and microbiology Laboratory Tests 09/27/24 09:14 09/24/24 07:04 Test 09/24/24 07:04 Range/Units Serum Glucose 96 74-106 mg/dL Microbiology Date/Time Source Procedure Growth Status 09/16/24 19:00 Nose MRSA Screen - Final Complete Labs and/or images reviewed: Labs reviewed by me, Image(s) reviewed by me Problem List/Assessment/Plan Problem List/Assessment/Plan Subacute stroke in right basal ganglia, evolving Multiple chronic strokes Possible vascular dementia Left atrial thrombus - head CT: No acute intracranial hemorrhage. Stable findings of old lacunar infarct. - repeat head CT: A focal hypodensity seen involving the right basal ganglia and external capsule, with no associated mass effect. This likely represents an acute onset infarct and adequate clinical settings. Hold lacunar infarcts in the bilateral ganglia capsular regions and centrum semiovale. Ischemic changes in the periventricular deep white matter. Age-related cortical atrophy with prominence of cortical sulci and ventricular system. Bilateral ethmoid and sphenoid sinusitis. - MRI brain: Acute to subacute infarct extending from the right still radiata to the right lentiform nucleus. There is no evidence of acute hemorrhage. There is no significant surrounding edema or associated mass effect. Multiple scattered small foci of blooming artifact in the right and left cerebrum likely foci chronic petechial hemorrhage. [id number]-gq-[id number] chronic microvascular white matter ischemic changes. - head and neck CT angiography: No large vessel occlusion or high-grade stenosis in the arteries of the head and neck. No aneurysm is identified. - neurology on board - aspirin 81 mg, atorvastatin 80 mg - consulted with Cardiology, completed KAREL: Left atrial appendage showed a small thrombus in the distal segment of the appendix. There was slight pedunculated lesion noted. There is a large appendage. Bubble study was negative for crossover within the atrium or ventricle. - repeat neurology consult placed evolving nature of the stroke - repeat head CT: Interval increase in hypodensity of the right basal ganglia/still radiata infarct likely represents an evolving infarct. No hemorrhage is seen. - started heparin drip - started on warfarin per pharmacy 09/23/2024 Parkinson's disease can not be ruled out - outpatient follow up with Neurology recommended Hypertensive emergency, now improving ALOC due to above, improved Heart failure with improved ejection fraction of (previously 35% on 01/19/2024, now 50% on 09/17/2024) CAD, s/p CABG in 2016 - lisinopril 10 mg - metoprolol succinate 25 mg - nifedipine 60 mg p.o. daily MATILDE on questionable CKD, now improving - monitor Paroxysmal atrial fibrillation, currently stable Secondary hypercoagulable state due to family history - lower extremity USG: No right or left femoropopliteal venous thrombosis - ordered thrombophilia workup including antithrombin 3 antibody, factor V laden mutation, fibrinogen, lupus anticoagulant, protein C NS antigen - consulted heme oncology #Bluish discoloration of skin with itching , likely superficial venous thrombophlebitis -upper extremity Doppler -calamine lotion prn -monitor for skin necrosis Hypothyroidism - levothyroxine 150 mcg Psychosis, unspecified - monitor Plan discussed with patient Plan discussed with Dr. Epps Plan discussed with: Patient, Other My Orders My Orders Orders - CASANDRA BRAND RESIDENT Procedure Category Date Status Time Calamine Lotion PHA 09/27/24 In Process 19:15 Dietary Evaluation Review Comments: Encourage and monitor PO intake to meet 75% of her needs Expected Outcomes/Goals: Improved PO intakes Addendum Addendum Addendum I was physically present for the driver portions of the service provided to patient by THE RESIDENT. I have reviewed the documentation, discussed the case with resident and agree with the resident's documentation except as noted. Also the patient's clinical case was discussed with the patient's nurse. This medical document was created using an electronic medical record system with computerized dictation system. Although this document has been carefully reviewed, there might still be some phonetic and typographical errors. These areas are purely typographical due to imperfections of the software programs, and do not reflect any compromise in the patient's medical care. Late signature. Date of Service: Sep 27, 2024 Billing Provider: SANTIAGO EPPS MD Common Visit Codes: [id number] INP/OBS CARE(HIGH) CASANDRA BRAND RESIDENT Sep 27, 2024 19:34 SANTIAGO EPPS MD Sep 28, 2024 14:26
--- NOTE | 2024-09-27 20:37 | DVH ---
EXAM: US RT UPPER DVT Clinical History: rule out DVT Comparison: None Technique: Duplex Doppler evaluation of the deep venous systems of the right upper extremity from the common fem oral veins to the popliteal veins including color Doppler and spectral/pulsed waveform analysis was p erformed. Findings: Normal compressibility and color Doppler flow is seen in the right upper extremity veins including th e internal jugular, subclavian, axillary, brachial, radial and ulnar veins. Impression: 1. No sonographic evidence for right upper extremity DVT.
[2024-09-28 05:00] VITALS: BP 120/63; PULSE 61; RESP 18; TEMP 97.6; O2SAT 98
[2024-09-28 05:20] LABS: Basophils # (auto) 0 10 ^3/uL (0-0.2); Basophils % (auto) 0.5 % (0.0-2.0); Eosinophils # (auto) 0.3 10 ^3/uL (0-0.8); Eosinophils % (auto) 5.1 % (0.0-7.0); Hematocrit 36.7 % (36.0-46.0); Hemoglobin 12.3 g/dL (12.2-16.2); Lymphocytes # (auto) 0.6 10 ^3/uL (0.4-5.4); Lymphocytes % (auto) 9.3 % (10.0-50.0); Mean Corpuscular Hgb Conc. 33.6 g/dL (32.0-36.0); Mean Corpuscular Volume 92.3 fL (80.0-100.0); Monocytes # (auto) 0.8 10 ^3/uL (0-1.3); Monocytes % (auto) 13.1 % (0.0-12.0); Neutrophils # (auto) 4.6 10 ^3/uL (1.6-8.6); Platelet Count (auto) 196 10^3/uL (140-450); Red Blood Cells 3.97 10^6/uL (4.0-5.20); Red Cell Distribution Width 13.9 % (11.8-14.3); White Blood Cell 6.3 10^3/uL (4.4-10.8)
[2024-09-28 05:50] LABS: INR 1.97 (0.9-1.15); Partial Thromboplastin Time 49.4 SEC (24.5-34.5); Prothrombin Time 19.9 sec (9.3-11.8)
[2024-09-28 09:00] VITALS: BP_SYST 102; BP_SYST 97; BP_DIAS 64; BP_DIAS 69; PULSE 58; PULSE 69; RESP 19; RESP 21; TEMP 97.4; TEMP 98; O2SAT 100; O2SAT 95
[2024-09-28 11:31] LABS: Urine Bacteria MOD /hpf (None Seen); Urine Blood Negative /uL (Negative); Urine Budding Yeast LOADED /hpf (None Seen); Urine Clarity Turbid (Clear); Urine Color Light-Yellow (Yellow); Urine Mucus FEW (None Seen); Urine Protein, UAD Negative (Negative); Urine Specific Gravity 1.024 (1.001-1.035); Urine Squamous Epithelial Cell FEW /hpf (<5); Urine Urobilinogen Normal (Negative); Urine WBC 67 /hpf (0 - 5)
[2024-09-28 13:31] VITALS: BP 121/70; PULSE 57; RESP 16; TEMP 98.1; O2SAT 94
--- NOTE | 2024-09-28 13:44 | DVHPNRES ---
Progress Note Date Seen: Sep 28, 2024 Resident Creating Document: ITZEL ALEX RESIDENT Medical Necessity Reason Pt with a Central, PICC or Fol: No Subjective Review of Systems Patient is a 69-year-old female with past medical history of HFrEF 35%EF, septic arthritis, anemia of chronic disease, hypertension, seizures, coronary artery disease, questionable septic arthritis who came in due to generalized weakness and confusion. According to the patient, last night on 09/15/2024 got up to use the restroom but she felt like she could not stand and her left leg was not moving and she lost her balance, fell on the bed, patient notes that she had a seizure and subsequently noticed that her nose was bleeding. At the scene patient was found to have a blood glucose of 86 and a systolic blood pressure of 199 by the EMS staff. Patient also notices a erythematous rash on her left forearm that has been present for the past 4 weeks, patient states that it started as a rash that bled easily and has been ongoing and progressively worsening. She was recently started on Keppra 1000 mg b.i.d. which was subsequently reduced to Keppra 500 mg b.i.d. owing to patient experiencing unpleasant side effects including spasms, hiccups. On physical exam, patient has normal strength and sensation in bilateral upper and lower extremities. Patient is on eliquis 5mg bid for paroxysmal afib. Past surgical history: Left knee surgery in 2021, left shoulder surgery, cholecystectomy Home medications: Baclofen, apixaban, hydroxyzine, levetiracetam, lisinopril, metoprolol succinate Allergies: Azithromycin, polyethylene glycol, statin, mycin Patient seen and examined at bedside. Patient is alert and oriented to time, place person and responding to all questions. Patient reports improved headache, nausea and vomiting. Left forearm erythema markedly improved, bruising noted on the right forearm, however, right upper extremity Doppler came back negative. Patient complaining of increasing urinary frequency, we will order repeat UA Objective vital signs Vital Sign Date Time Temp Pulse Resp B/P (MAP) Pulse Ox O2 Delivery O2 Flow Rate FiO2 09/28/24 13:31 98.1 57 16 121/70 (87) 94 98.1 09/27/24 20:00 Nasal Cannula* 2 28 Total Intake and Output 09/27/24 09/27/24 09/28/24 15:00 23:00 07:00 Intake Total 734 ml 734 ml 404 ml Balance 734 ml 734 ml 404 ml medications Current Medications Medications Dose Ordered Sig/Radha Route Start Time Stop Time Status Last Admin Dose Admin Levothyroxine Sodium 150 mcg QAM@0600 PO 09/17/24 06:00 09/28/24 05:33 150 MCG Metoprolol Succinate 25 mg DAILY PO 09/17/24 10:00 09/28/24 10:42 25 MG Atorvastatin Calcium 80 mg HS PO 09/18/24 22:00 09/27/24 22:34 80 MG Aspirin 81 mg DAILY PO 09/19/24 10:00 09/28/24 10:35 81 MG Nifedipine 60 mg DAILY PO 09/20/24 10:00 09/27/24 09:31 60 MG Melatonin 5 mg HSPRN PO 09/21/24 22:00 09/27/24 22:34 5 MG Warfarin Sodium RX PROTOCOL PER PHARMACY PO 09/23/24 13:45 Acetaminophen 650 mg Q6HP PRN PO 09/24/24 20:30 09/25/24 21:17 650 MG Heparin Sodium/ Dextrose 250 ml @ 9 mls/hr Q24H IV 09/26/24 03:15 09/28/24 12:44 9 MLS/HR Calamine 1 applic QIDP PRN TOP 09/27/24 19:15 Ceftriaxone Sodium 50 ml @ 100 mls/hr DAILY@09 IV 09/29/24 09:00 UNV Examination General Appearance: Cooperative. Well developed. Well nourished. NAD Head Exam: Normal inspection Neck Exam: Normal inspection. Non-tender. Normal alignment Pulmonary/Respiratory: Chest non-tender. Clear bilateral breath sounds, no crackles, no wheezing. Cardiovascular/Chest: Regular rate and rhythm. No murmurs. No JVD. Peripheral Pulses: 2+ Radial (R). 2+ Radial (L). 2+ Pedal (R). 2+ Pedal (L) Abdominal Exam: Normal bowel sounds. Soft. normal abdomen, no visible veins, Nontender. No hepatospenomegaly. No masses Ankle Exam: Negative ankle edema Upper extremities: Erythematous macular/petechial rash on the right forearm, i mproved. 3+ strength right upper extremity, 1+ strength left upper extremity Lower extremities: Negative lower extremity edema. 3+ strength right lower extremity, 1+ strength left lower extremity Neuro/Mental Status: A&O x3. Coherent. Thoughts/Psych: Normal thought pattern. Appropriate mood and affect. Good judgement and insight Skin Exam: Normal inspection. Normal color. Warm. Dry. Normal sensations throughout laboratory and microbiology Laboratory Tests 09/28/24 04:53 09/24/24 07:04 Test 09/24/24 07:04 Range/Units Serum Glucose 96 74-106 mg/dL Microbiology Date/Time Source Procedure Growth Status 09/16/24 19:00 Nose MRSA Screen - Final Complete Labs and/or images reviewed: Labs reviewed by me, Image(s) reviewed by me Problem List/Assessment/Plan Problem List/Assessment/Plan Subacute stroke in right basal ganglia, evolving Multiple chronic strokes Possible vascular dementia Left atrial thrombus - head CT: No acute intracranial hemorrhage. Stable findings of old lacunar infarct. - repeat head CT: A focal hypodensity seen involving the right basal ganglia and external capsule, with no associated mass effect. This likely represents an acute onset infarct and adequate clinical settings. Hold lacunar infarcts in the bilateral ganglia capsular regions and centrum semiovale. Ischemic changes in the periventricular deep white matter. Age-related cortical atrophy with prominence of cortical sulci and ventricular system. Bilateral ethmoid and sphenoid sinusitis. - MRI brain: Acute to subacute infarct extending from the right still radiata to the right lentiform nucleus. There is no evidence of acute hemorrhage. There is no significant surrounding edema or associated mass effect. Multiple scattered small foci of blooming artifact in the right and left cerebrum likely foci chronic petechial hemorrhage. [id number] chronic microvascular white matter ischemic changes. - head and neck CT angiography: No large vessel occlusion or high-grade stenosis in the arteries of the head and neck. No aneurysm is identified. - neurology on board - aspirin 81 mg, atorvastatin 80 mg - consulted with Cardiology, completed KAREL: Left atrial appendage showed a small thrombus in the distal segment of the appendix. There was slight pedunculated lesion noted. There is a large appendage. Bubble study was negative for crossover within the atrium or ventricle. - repeat neurology consult placed evolving nature of the stroke - repeat head CT: Interval increase in hypodensity of the right basal ganglia/still radiata infarct likely represents an evolving infarct. No hemorrhage is seen. - started heparin drip - started on warfarin per pharmacy 09/23/2024; INR today on 09/28/2024 is 1.97 Parkinson's disease can not be ruled out - outpatient follow up with Neurology recommended Acute complicated UTI - urine nitrites 2+, urine leukocyte esterase 3+, moderate bacteria - IV ceftriaxone daily - ordered urine culture Hypertensive emergency, now improving ALOC due to above, improved Heart failure with improved ejection fraction of (previously 35% on 01/19/2024, now 50% on 09/17/2024) CAD, s/p CABG in 2016 - lisinopril 10 mg - metoprolol succinate 25 mg - nifedipine 60 mg p.o. daily MATILDE on questionable CKD, now improving - monitor Paroxysmal atrial fibrillation, currently stable Secondary hypercoagulable state due to family history - lower extremity USG: No right or left femoropopliteal venous thrombosis - ordered thrombophilia workup including antithrombin 3 antibody, factor V laden mutation, fibrinogen, lupus anticoagulant, protein C NS antigen - consulted heme oncology Hypothyroidism - levothyroxine 150 mcg Psychosis, unspecified - monitor Plan discussed with patient Plan discussed with Dr. Epps Plan discussed with: Patient, Other (RN) My Orders My Orders Orders - ITZEL ALEX RESIDENT Procedure Category Date Status Time Ceftriaxone 1gm/50ml PHA 09/29/24 Logged D5w (Rocephin) 09:00 Ceftriaxone 1gm/50ml PHA 09/28/24 Logged D5w (Rocephin) 13:45 Urine Bacterial ARCHIE 09/28/24 Verified Culture 13:38 Dietary Evaluation Review Comments: Encourage and monitor PO intake to meet 75% of her needs Expected Outcomes/Goals: Improved PO intakes Addendum Addendum Addendum I was physically present for the driver portions of the service provided to patient by THE RESIDENT. I have reviewed the documentation, discussed the case with resident and agree with the resident's documentation except as noted. Also the patient's clinical case was discussed with the patient's nurse. This medical document was created using an electronic medical record system with computerized dictation system. Although this document has been carefully reviewed, there might still be some phonetic and typographical errors. These areas are purely typographical due to imperfections of the software programs, and do not reflect any compromise in the patient's medical care. Late signature. Date of Service: Sep 28, 2024 Billing Provider: SANTIAGO EPPS MD Common Visit Codes: [id number] INP/OBS CARE(HIGH) ITZEL ALEX RESIDENT Sep 28, 2024 13:44 SANTIAGO EPPS MD Sep 28, 2024 14:27
[2024-09-28 16:55] VITALS: BP 125/61; PULSE 64; RESP 17; TEMP 99.1; O2SAT 96
[2024-09-28] MEDS: WARFARIN SODIUM 2 MG TAB PO ONE (17:48)
[2024-09-28] MEDS: cefTRIAXone 1GM/50ML D5W 50 ML IV ONE (18:48)
[2024-09-28 20:00] VITALS: PULSE 65; RESP 18
[2024-09-28 21:00] VITALS: BP 144/82; PULSE 66; RESP 19; TEMP 99.3; O2SAT 97
[2024-09-29] VITALS (8 sets, daily range): BP systolic 134–158; BP diastolic 62–91; PULSE 56–69; RESP 15–18; TEMP 97.7–98.9; O2SAT 94–97
[2024-09-29 06:30] LABS: INR 2.43 (0.9-1.15); Prothrombin Time 24.1 sec (9.3-11.8)
[2024-09-29 06:35] LABS: Partial Thromboplastin Time 76.6 SEC (24.5-34.5)
[2024-09-29 06:53] LABS: Basophils # (auto) 0 10 ^3/uL (0-0.2); Basophils % (auto) 0.6 % (0.0-2.0); Eosinophils # (auto) 0.3 10 ^3/uL (0-0.8); Eosinophils % (auto) 5.3 % (0.0-7.0); Hematocrit 36.3 % (36.0-46.0); Hemoglobin 12.3 g/dL (12.2-16.2); Lymphocytes # (auto) 0.7 10 ^3/uL (0.4-5.4); Lymphocytes % (auto) 13.8 % (10.0-50.0); Mean Corpuscular Hemoglobin 31.2 pg (28.0-32.0); Mean Corpuscular Hgb Conc. 33.8 g/dL (32.0-36.0); Mean Corpuscular Volume 92.3 fL (80.0-100.0); Monocytes # (auto) 0.7 10 ^3/uL (0-1.3); Monocytes % (auto) 13.5 % (0.0-12.0); Neutrophils # (auto) 3.6 10 ^3/uL (1.6-8.6); Neutrophils % (auto) 66.8 % (37.0-80.0); Platelet Count (auto) 217 10^3/uL (140-450); Red Blood Cells 3.94 10^6/uL (4.0-5.20); Red Cell Distribution Width 13.5 % (11.8-14.3); White Blood Cell 5.4 10^3/uL (4.4-10.8)
[2024-09-29] MEDS: HEPARIN DRIP/D5W 100UNITS/ML 250 ML IV SCH (07:00)
[2024-09-29] MEDS: cefTRIAXone 1GM/50ML D5W 50 ML IV SCH (09:15)
[2024-09-29 13:23] LABS: INR 2.57 (0.9-1.15); Partial Thromboplastin Time 58.4 SEC (24.5-34.5); Prothrombin Time 25.4 sec (9.3-11.8)
--- NOTE | 2024-09-29 14:43 | DVHPNRES ---
Progress Note Date Seen: Sep 29, 2024 Resident Creating Document: ITZEL ALEX RESIDENT Medical Necessity Reason Pt with a Central, PICC or Fol: No Subjective Review of Systems Patient is a 69-year-old female with past medical history of HFrEF 35%EF, septic arthritis, anemia of chronic disease, hypertension, seizures, coronary artery disease, questionable septic arthritis who came in due to generalized weakness and confusion. According to the patient, last night on 09/15/2024 got up to use the restroom but she felt like she could not stand and her left leg was not moving and she lost her balance, fell on the bed, patient notes that she had a seizure and subsequently noticed that her nose was bleeding. At the scene patient was found to have a blood glucose of 86 and a systolic blood pressure of 199 by the EMS staff. Patient also notices a erythematous rash on her left forearm that has been present for the past 4 weeks, patient states that it started as a rash that bled easily and has been ongoing and progressively worsening. She was recently started on Keppra 1000 mg b.i.d. which was subsequently reduced to Keppra 500 mg b.i.d. owing to patient experiencing unpleasant side effects including spasms, hiccups. On physical exam, patient has normal strength and sensation in bilateral upper and lower extremities. Patient is on eliquis 5mg bid for paroxysmal afib. Past surgical history: Left knee surgery in 2021, left shoulder surgery, cholecystectomy Home medications: Baclofen, apixaban, hydroxyzine, levetiracetam, lisinopril, metoprolol succinate Allergies: Azithromycin, polyethylene glycol, statin, mycin Patient seen and examined at bedside. Patient is alert and oriented to time, place person and responding to all questions. Patient reports improved headache, nausea and vomiting. Left forearm erythema markedly improved, bruising noted on the right forearm, however, right upper extremity Doppler came back negative. Patient complaining of increasing urinary frequency, ordered repeat UA which showed UTI, patient was started on IV ceftriaxone. Objective vital signs Vital Sign Date Time Temp Pulse Resp B/P (MAP) Pulse Ox O2 Delivery O2 Flow Rate FiO2 09/29/24 12:49 98.9 57 15 134/75 (94) 96 98.9 09/29/24 08:00 Nasal Cannula* 2 28 Total Intake and Output 09/28/24 09/28/24 09/29/24 15:00 23:00 07:00 Intake Total 325 ml 849 ml Balance 325 ml 849 ml medications Current Medications Medications Dose Ordered Sig/Radha Route Start Time Stop Time Status Last Admin Dose Admin Levothyroxine Sodium 150 mcg QAM@0600 PO 09/17/24 06:00 09/29/24 05:33 150 MCG Metoprolol Succinate 25 mg DAILY PO 09/17/24 10:00 09/29/24 09:15 25 MG Atorvastatin Calcium 80 mg HS PO 09/18/24 22:00 09/28/24 22:03 80 MG Aspirin 81 mg DAILY PO 09/19/24 10:00 09/29/24 09:15 81 MG Nifedipine 60 mg DAILY PO 09/20/24 10:00 09/29/24 09:14 60 MG Melatonin 5 mg HSPRN PO 09/21/24 22:00 09/28/24 22:03 5 MG Warfarin Sodium RX PROTOCOL PER PHARMACY PO 09/23/24 13:45 Acetaminophen 650 mg Q6HP PRN PO 09/24/24 20:30 09/25/24 21:17 650 MG Calamine 1 applic QIDP PRN TOP 09/27/24 19:15 Ceftriaxone Sodium 50 ml @ 100 mls/hr DAILY@09 IV 09/29/24 09:00 09/29/24 09:15 100 MLS/HR Heparin Sodium/ Dextrose 250 ml @ 7 mls/hr Q24H IV 09/29/24 07:00 09/29/24 07:00 7 MLS/HR Examination General Appearance: Cooperative. Well developed. Well nourished. NAD Head Exam: Normal inspection Neck Exam: Normal inspection. Non-tender. Normal alignment Pulmonary/Respiratory: Chest non-tender. Clear bilateral breath sounds, no crackles, no wheezing. Cardiovascular/Chest: Regular rate and rhythm. No murmurs. No JVD. Peripheral Pulses: 2+ Radial (R). 2+ Radial (L). 2+ Pedal (R). 2+ Pedal (L) Abdominal Exam: Normal bowel sounds. Soft. normal abdomen, no visible veins, Nontender. No hepatospenomegaly. No masses Ankle Exam: Negative ankle edema Upper extremities: Erythematous macular/petechial rash on the right forearm, i mproved. 3+ strength right upper extremity, 1+ strength left upper extremity Lower extremities: Negative lower extremity edema. 3+ strength right lower extremity, 1+ strength left lower extremity Neuro/Mental Status: A&O x3. Coherent. Thoughts/Psych: Normal thought pattern. Appropriate mood and affect. Good judgement and insight Skin Exam: Normal inspection. Normal color. Warm. Dry. Normal sensations throughout laboratory and microbiology Laboratory Tests 09/29/24 05:28 09/24/24 07:04 Test 09/24/24 07:04 Range/Units Serum Glucose 96 74-106 mg/dL Microbiology Date/Time Source Procedure Growth Status 09/16/24 19:00 Nose MRSA Screen - Final Complete Labs and/or images reviewed: Labs reviewed by me, Image(s) reviewed by me Problem List/Assessment/Plan Problem List/Assessment/Plan Subacute stroke in right basal ganglia, evolving Multiple chronic strokes Possible vascular dementia Left atrial thrombus - head CT: No acute intracranial hemorrhage. Stable findings of old lacunar infarct. - repeat head CT: A focal hypodensity seen involving the right basal ganglia and external capsule, with no associated mass effect. This likely represents an acute onset infarct and adequate clinical settings. Hold lacunar infarcts in the bilateral ganglia capsular regions and centrum semiovale. Ischemic changes in the periventricular deep white matter. Age-related cortical atrophy with prominence of cortical sulci and ventricular system. Bilateral ethmoid and sphenoid sinusitis. - MRI brain: Acute to subacute infarct extending from the right still radiata to the right lentiform nucleus. There is no evidence of acute hemorrhage. There is no significant surrounding edema or associated mass effect. Multiple scattered small foci of blooming artifact in the right and left cerebrum likely foci chronic petechial hemorrhage. [id number] chronic microvascular white matter ischemic changes. - head and neck CT angiography: No large vessel occlusion or high-grade stenosis in the arteries of the head and neck. No aneurysm is identified. - neurology on board - aspirin 81 mg, atorvastatin 80 mg - consulted with Cardiology, completed KAREL: Left atrial appendage showed a small thrombus in the distal segment of the appendix. There was slight pedunculated lesion noted. There is a large appendage. Bubble study was negative for crossover within the atrium or ventricle. - repeat neurology consult placed evolving nature of the stroke - repeat head CT: Interval increase in hypodensity of the right basal ganglia/still radiata infarct likely represents an evolving infarct. No hemorrhage is seen. - started heparin drip - started on warfarin per pharmacy 09/23/2024 - stopped heparin as patient in target INR Parkinson's disease can not be ruled out - outpatient follow up with Neurology recommended Acute complicated UTI - urine nitrites 2+, urine leukocyte esterase 3+, moderate bacteria - IV ceftriaxone daily - ordered urine culture Hypertensive emergency, now improving ALOC due to above, improved Heart failure with improved ejection fraction of (previously 35% on 01/19/2024, now 50% on 09/17/2024) CAD, s/p CABG in 2016 - lisinopril 10 mg - metoprolol succinate 25 mg - nifedipine 60 mg p.o. daily MATILDE on questionable CKD, now improving - monitor Paroxysmal atrial fibrillation, currently stable Secondary hypercoagulable state due to family history - lower extremity USG: No right or left femoropopliteal venous thrombosis - ordered thrombophilia workup including antithrombin 3 antibody, factor V laden mutation, fibrinogen, lupus anticoagulant, protein C NS antigen - consulted heme oncology Hypothyroidism - levothyroxine 150 mcg Psychosis, unspecified - monitor Goals of care: Full code, discussed for >16 minutes on 09/17/24 Plan discussed with patient Plan discussed with Dr. Godfrey Plan discussed with: Patient, Other (RN) Dietary Evaluation Review Comments: Encourage and monitor PO intake to meet 75% of her needs Expected Outcomes/Goals: Improved PO intakes Date of Service: Sep 29, 2024 Billing Provider: CHESTER GODFREY MD Common Visit Codes: [id number] INP/OBS CARE(HIGH) ITZEL ALEX Sep 29, 2024 14:43 CHESTER GODFREY MD Sep 30, 2024 20:19
[2024-09-29] MEDS: WARFARIN SODIUM 5 MG TAB PO ONE (17:07)
[2024-09-29 19:38] LABS: INR 2.35 (0.9-1.15); Partial Thromboplastin Time 40.1 SEC (24.5-34.5); Prothrombin Time 23.4 sec (9.3-11.8)
[2024-09-30] VITALS (8 sets, daily range): BP systolic 125–156; BP diastolic 55–81; PULSE 57–77; RESP 16–18; TEMP 97.1–98.3; O2SAT 93–98
[2024-09-30 07:04] LABS: Basophils # (auto) 0.1 10 ^3/uL (0-0.2); Basophils % (auto) 0.8 % (0.0-2.0); Eosinophils # (auto) 0.3 10 ^3/uL (0-0.8); Eosinophils % (auto) 4.7 % (0.0-7.0); Hemoglobin 12.7 g/dL (12.2-16.2); Lymphocytes # (auto) 0.8 10 ^3/uL (0.4-5.4); Lymphocytes % (auto) 11.9 % (10.0-50.0); Mean Corpuscular Hemoglobin 31.3 pg (28.0-32.0); Mean Corpuscular Hgb Conc. 34.2 g/dL (32.0-36.0); Mean Corpuscular Volume 91.5 fL (80.0-100.0); Monocytes # (auto) 0.7 10 ^3/uL (0-1.3); Monocytes % (auto) 10.6 % (0.0-12.0); Neutrophils # (auto) 4.9 10 ^3/uL (1.6-8.6); Nucleated Red Blood Cells % 0.1 %; Platelet Count (auto) 233 10^3/uL (140-450); Red Blood Cells 4.04 10^6/uL (4.0-5.20); Red Cell Distribution Width 13.7 % (11.8-14.3); White Blood Cell 6.9 10^3/uL (4.4-10.8)
--- NOTE | 2024-09-30 15:40 | DVHPNRES ---
Progress Note Date Seen: Sep 30, 2024 Resident Creating Document: ITZEL ALEX RESIDENT Medical Necessity Reason Pt with a Central, PICC or Fol: No Subjective Review of Systems Patient is a 69-year-old female with past medical history of HFrEF 35%EF, septic arthritis, anemia of chronic disease, hypertension, seizures, coronary artery disease, questionable septic arthritis who came in due to generalized weakness and confusion. According to the patient, last night on 09/15/2024 got up to use the restroom but she felt like she could not stand and her left leg was not moving and she lost her balance, fell on the bed, patient notes that she had a seizure and subsequently noticed that her nose was bleeding. At the scene patient was found to have a blood glucose of 86 and a systolic blood pressure of 199 by the EMS staff. Patient also notices a erythematous rash on her left forearm that has been present for the past 4 weeks, patient states that it started as a rash that bled easily and has been ongoing and progressively worsening. She was recently started on Keppra 1000 mg b.i.d. which was subsequently reduced to Keppra 500 mg b.i.d. owing to patient experiencing unpleasant side effects including spasms, hiccups. On physical exam, patient has normal strength and sensation in bilateral upper and lower extremities. Patient is on eliquis 5mg bid for paroxysmal afib. Past surgical history: Left knee surgery in 2021, left shoulder surgery, cholecystectomy Home medications: Baclofen, apixaban, hydroxyzine, levetiracetam, lisinopril, metoprolol succinate Allergies: Azithromycin, polyethylene glycol, statin, mycin Patient seen and examined at bedside. Patient is alert and oriented to time, place person and responding to all questions. Patient reports improved headache, nausea and vomiting. Left forearm erythema markedly improved, bruising noted on the right forearm, however, right upper extremity Doppler came back negative. Patient complaining of increasing urinary frequency, ordered repeat UA which showed UTI, patient was started on IV ceftriaxone. Objective vital signs Vital Sign Date Time Temp Pulse Resp B/P (MAP) Pulse Ox O2 Delivery O2 Flow Rate FiO2 09/30/24 10:00 133/71 09/30/24 10:00 64 09/30/24 08:40 98.3 16 98 98.3 09/30/24 08:00 Nasal Cannula* 2 28 Total Intake and Output 09/29/24 09/29/24 09/30/24 15:00 23:00 07:00 Intake Total 50 ml 870 ml 500 ml Balance 50 ml 870 ml 500 ml medications Current Medications Medications Dose Ordered Sig/Radha Route Start Time Stop Time Status Last Admin Dose Admin Levothyroxine Sodium 150 mcg QAM@0600 PO 09/17/24 06:00 09/30/24 06:08 150 MCG Metoprolol Succinate 25 mg DAILY PO 09/17/24 10:00 09/30/24 10:00 25 MG Atorvastatin Calcium 80 mg HS PO 09/18/24 22:00 09/29/24 21:52 80 MG Aspirin 81 mg DAILY PO 09/19/24 10:00 09/30/24 09:30 81 MG Nifedipine 60 mg DAILY PO 09/20/24 10:00 09/30/24 10:00 60 MG Melatonin 5 mg HSPRN PO 09/21/24 22:00 09/29/24 21:52 5 MG Warfarin Sodium RX PROTOCOL PER PHARMACY PO 09/23/24 13:45 Acetaminophen 650 mg Q6HP PRN PO 09/24/24 20:30 09/25/24 21:17 650 MG Calamine 1 applic QIDP PRN TOP 09/27/24 19:15 Ceftriaxone Sodium 50 ml @ 100 mls/hr DAILY@09 IV 09/29/24 09:00 09/30/24 09:29 100 MLS/HR Examination General Appearance: Cooperative. Well developed. Well nourished. NAD Head Exam: Normal inspection Neck Exam: Normal inspection. Non-tender. Normal alignment Pulmonary/Respiratory: Chest non-tender. Clear bilateral breath sounds, no crackles, no wheezing. Cardiovascular/Chest: Regular rate and rhythm. No murmurs. No JVD. Peripheral Pulses: 2+ Radial (R). 2+ Radial (L). 2+ Pedal (R). 2+ Pedal (L) Abdominal Exam: Normal bowel sounds. Soft. normal abdomen, no visible veins, Nontender. No hepatospenomegaly. No masses Ankle Exam: Negative ankle edema Upper extremities: Erythematous macular/petechial rash on the right forearm, i mproved. 3+ strength right upper extremity, 1+ strength left upper extremity Lower extremities: Negative lower extremity edema. 3+ strength right lower extremity, 1+ strength left lower extremity Neuro/Mental Status: A&O x3. Coherent. Thoughts/Psych: Normal thought pattern. Appropriate mood and affect. Good judgement and insight Skin Exam: Normal inspection. Normal color. Warm. Dry. Normal sensations throughout laboratory and microbiology Laboratory Tests 09/30/24 05:25 09/24/24 07:04 Test 09/24/24 07:04 Range/Units Serum Glucose 96 74-106 mg/dL Microbiology Date/Time Source Procedure Growth Status 09/29/24 13:30 Voided Urine Urine Culture - Preliminary Resulted 09/16/24 19:00 Nose MRSA Screen - Final Complete Labs and/or images reviewed: Labs reviewed by me, Image(s) reviewed by me Problem List/Assessment/Plan Problem List/Assessment/Plan Subacute stroke in right basal ganglia, evolving Multiple chronic strokes Possible vascular dementia Left atrial thrombus - head CT: No acute intracranial hemorrhage. Stable findings of old lacunar infarct. - repeat head CT: A focal hypodensity seen involving the right basal ganglia and external capsule, with no associated mass effect. This likely represents an acute onset infarct and adequate clinical settings. Hold lacunar infarcts in the bilateral ganglia capsular regions and centrum semiovale. Ischemic changes in the periventricular deep white matter. Age-related cortical atrophy with prominence of cortical sulci and ventricular system. Bilateral ethmoid and sphenoid sinusitis. - MRI brain: Acute to subacute infarct extending from the right still radiata to the right lentiform nucleus. There is no evidence of acute hemorrhage. There is no significant surrounding edema or associated mass effect. Multiple scattered small foci of blooming artifact in the right and left cerebrum likely foci chronic petechial hemorrhage. [id number] chronic microvascular white matter ischemic changes. - head and neck CT angiography: No large vessel occlusion or high-grade stenosis in the arteries of the head and neck. No aneurysm is identified. - neurology on board - aspirin 81 mg, atorvastatin 80 mg - consulted with Cardiology, completed KAREL: Left atrial appendage showed a small thrombus in the distal segment of the appendix. There was slight pedunculated lesion noted. There is a large appendage. Bubble study was negative for crossover within the atrium or ventricle. - repeat neurology consult placed evolving nature of the stroke - repeat head CT: Interval increase in hypodensity of the right basal ganglia/still radiata infarct likely represents an evolving infarct. No hemorrhage is seen. - started heparin ip - started on warfarin per pharmacy 09/23/2024 - stopped heparin as patient in target INR Parkinson's disease can not be ruled out - outpatient follow up with Neurology recommended Acute complicated UTI - urine nitrites 2+, urine leukocyte esterase 3+, moderate bacteria - IV ceftriaxone daily - ordered urine culture Hypertensive emergency, now improving ALOC due to above, improved Heart failure with improved ejection fraction of (previously 35% on 01/19/2024, now 50% on 09/17/2024) CAD, s/p CABG in 2016 - lisinopril 10 mg - metoprolol succinate 25 mg - nifedipine 60 mg p.o. daily MATILDE on questionable CKD, now improving - monitor Paroxysmal atrial fibrillation, currently stable Secondary hypercoagulable state due to family history - lower extremity USG: No right or left femoropopliteal venous thrombosis - ordered thrombophilia workup including antithrombin 3 antibody, factor V laden mutation, fibrinogen, lupus anticoagulant, protein C NS antigen - consulted heme oncology Hypothyroidism - levothyroxine 150 mcg Psychosis, unspecified - monitor Goals of care: Full code, discussed for >16 minutes on 09/17/24 Plan discussed with patient Plan discussed with Dr. Godfrey Plan discussed with: Patient, Other (RN) My Orders My Orders Orders - ITZEL ALEX Procedure Category Date Status Time Transfer Orders XFER 09/30/24 Transmitted 08:26 Dietary Evaluation Review Comments: Encourage and monitor PO intake to meet 75% of her needs Expected Outcomes/Goals: Improved PO intakes Date of Service: Sep 30, 2024 Billing Provider: CHESTER GODFREY MD Common Visit Codes: [id number] INP/OBS CARE(HIGH) ITZEL ALEX Sep 30, 2024 15:40 CHESTER GODFREY MD Sep 30, 2024 20:20
[2024-09-30] MEDS: WARFARIN SODIUM 2 MG TAB PO ONE (16:51)
[2024-10-01] VITALS (7 sets, daily range): BP systolic 120–148; BP diastolic 62–80; PULSE 56–70; RESP 16–19; TEMP 97.5–98.2; O2SAT 89–98
[2024-10-01 06:13] LABS: Basophils # (auto) 0 10 ^3/uL (0-0.2); Basophils % (auto) 0.6 % (0.0-2.0); Eosinophils # (auto) 0.4 10 ^3/uL (0-0.8); Eosinophils % (auto) 5.6 % (0.0-7.0); Hematocrit 36.4 % (36.0-46.0); Hemoglobin 12.3 g/dL (12.2-16.2); Lymphocytes # (auto) 0.9 10 ^3/uL (0.4-5.4); Mean Corpuscular Hemoglobin 31.1 pg (28.0-32.0); Mean Corpuscular Hgb Conc. 33.8 g/dL (32.0-36.0); Mean Corpuscular Volume 91.9 fL (80.0-100.0); Monocytes # (auto) 0.8 10 ^3/uL (0-1.3); Monocytes % (auto) 13.1 % (0.0-12.0); Neutrophils # (auto) 4.2 10 ^3/uL (1.6-8.6); Neutrophils % (auto) 66.7 % (37.0-80.0); Nucleated Red Blood Cells % 0.1 %; Platelet Count (auto) 242 10^3/uL (140-450); Red Blood Cells 3.96 10^6/uL (4.0-5.20); Red Cell Distribution Width 13.4 % (11.8-14.3); White Blood Cell 6.3 10^3/uL (4.4-10.8)
[2024-10-01 06:33] LABS: INR 2.66 (0.9-1.15); Partial Thromboplastin Time 42.3 SEC (24.5-34.5); Prothrombin Time 26.2 sec (9.3-11.8)
--- NOTE | 2024-10-01 16:19 | DVHPNRES ---
Progress Note Date Seen: Oct 01, 2024 Resident Creating Document: ITZEL ALEX RESIDENT Medical Necessity Reason Pt with a Central, PICC or Fol: No Subjective Review of Systems Patient is a 69-year-old female with past medical history of HFrEF 35%EF, septic arthritis, anemia of chronic disease, hypertension, seizures, coronary artery disease, questionable septic arthritis who came in due to generalized weakness and confusion. According to the patient, last night on 09/15/2024 got up to use the restroom but she felt like she could not stand and her left leg was not moving and she lost her balance, fell on the bed, patient notes that she had a seizure and subsequently noticed that her nose was bleeding. At the scene patient was found to have a blood glucose of 86 and a systolic blood pressure of 199 by the EMS staff. Patient also notices a erythematous rash on her left forearm that has been present for the past 4 weeks, patient states that it started as a rash that bled easily and has been ongoing and progressively worsening. She was recently started on Keppra 1000 mg b.i.d. which was subsequently reduced to Keppra 500 mg b.i.d. owing to patient experiencing unpleasant side effects including spasms, hiccups. On physical exam, patient has normal strength and sensation in bilateral upper and lower extremities. Patient is on eliquis 5mg bid for paroxysmal afib. Past surgical history: Left knee surgery in 2021, left shoulder surgery, cholecystectomy Home medications: Baclofen, apixaban, hydroxyzine, levetiracetam, lisinopril, metoprolol succinate Allergies: Azithromycin, polyethylene glycol, statin, mycin Patient seen and examined at bedside. Patient is alert and oriented to time, place person and responding to all questions. Patient reports improved headache, nausea and vomiting. Left forearm erythema markedly improved, bruising noted on the right forearm, however, right upper extremity Doppler came back negative. Patient complaining of increasing urinary frequency, ordered repeat UA which showed UTI, patient was started on IV ceftriaxone. Continues to complain of increased urinary frequency. Objective vital signs Vital Sign Date Time Temp Pulse Resp B/P (MAP) Pulse Ox O2 Delivery O2 Flow Rate FiO2 10/01/24 13:00 98.1 60 17 120/68 (85) 96 98.1 10/01/24 08:00 Nasal Cannula* 2 28 Total Intake and Output 09/30/24 09/30/24 10/01/24 15:00 23:00 07:00 Intake Total 50 ml 980 ml 600 ml Balance 50 ml 980 ml 600 ml medications Current Medications Medications Dose Ordered Sig/Radha Route Start Time Stop Time Status Last Admin Dose Admin Levothyroxine Sodium 150 mcg QAM@0600 PO 09/17/24 06:00 10/01/24 05:45 150 MCG Metoprolol Succinate 25 mg DAILY PO 09/17/24 10:00 10/01/24 10:55 25 MG Atorvastatin Calcium 80 mg HS PO 09/18/24 22:00 09/30/24 23:18 80 MG Aspirin 81 mg DAILY PO 09/19/24 10:00 10/01/24 10:53 81 MG Nifedipine 60 mg DAILY PO 09/20/24 10:00 10/01/24 10:56 60 MG Melatonin 5 mg HSPRN PO 09/21/24 22:00 09/30/24 23:18 5 MG Warfarin Sodium RX PROTOCOL PER PHARMACY PO 09/23/24 13:45 Acetaminophen 650 mg Q6HP PRN PO 09/24/24 20:30 09/30/24 23:19 650 MG Calamine 1 applic QIDP PRN TOP 09/27/24 19:15 Ceftriaxone Sodium 50 ml @ 100 mls/hr DAILY@09 IV 09/29/24 09:00 10/01/24 10:52 100 MLS/HR Examination General Appearance: Cooperative. Well developed. Well nourished. NAD Head Exam: Normal inspection Neck Exam: Normal inspection. Non-tender. Normal alignment Pulmonary/Respiratory: Chest non-tender. Clear bilateral breath sounds, no crackles, no wheezing. Cardiovascular/Chest: Regular rate and rhythm. No murmurs. No JVD. Peripheral Pulses: 2+ Radial (R). 2+ Radial (L). 2+ Pedal (R). 2+ Pedal (L) Abdominal Exam: Normal bowel sounds. Soft. normal abdomen, no visible veins, Nontender. No hepatospenomegaly. No masses Ankle Exam: Negative ankle edema Upper extremities: Erythematous macular/petechial rash on the right forearm, i mproved. 3+ strength right upper extremity, 1+ strength left upper extremity Lower extremities: Negative lower extremity edema. 3+ strength right lower extremity, 1+ strength left lower extremity Neuro/Mental Status: A&O x3. Coherent. Thoughts/Psych: Normal thought pattern. Appropriate mood and affect. Good judgement and insight Skin Exam: Normal inspection. Normal color. Warm. Dry. Normal sensations throughout laboratory and microbiology Laboratory Tests 10/01/24 05:19 09/24/24 07:04 Test 09/24/24 07:04 Range/Units Serum Glucose 96 74-106 mg/dL Microbiology Date/Time Source Procedure Growth Status 09/29/24 13:30 Voided Urine Urine Culture - Final Complete 09/16/24 19:00 Nose MRSA Screen - Final Complete Labs and/or images reviewed: Labs reviewed by me, Image(s) reviewed by me Problem List/Assessment/Plan Problem List/Assessment/Plan Subacute stroke in right basal ganglia, evolving Multiple chronic strokes Possible vascular dementia Left atrial thrombus - head CT: No acute intracranial hemorrhage. Stable findings of old lacunar infarct. - repeat head CT: A focal hypodensity seen involving the right basal ganglia and external capsule, with no associated mass effect. This likely represents an acute onset infarct and adequate clinical settings. Hold lacunar infarcts in the bilateral ganglia capsular regions and centrum semiovale. Ischemic changes in the periventricular deep white matter. Age-related cortical atrophy with prominence of cortical sulci and ventricular system. Bilateral ethmoid and sphenoid sinusitis. - MRI brain: Acute to subacute infarct extending from the right still radiata to the right lentiform nucleus. There is no evidence of acute hemorrhage. There is no significant surrounding edema or associated mass effect. Multiple scattered small foci of blooming artifact in the right and left cerebrum likely foci chronic petechial hemorrhage. [id number] chronic microvascular white matter ischemic changes. - head and neck CT angiography: No large vessel occlusion or high-grade stenosis in the arteries of the head and neck. No aneurysm is identified. - neurology on board - aspirin 81 mg, atorvastatin 80 mg - consulted with Cardiology, completed KAREL: Left atrial appendage showed a small thrombus in the distal segment of the appendix. There was slight pedunculated lesion noted. There is a large appendage. Bubble study was negative for crossover within the atrium or ventricle. - repeat neurology consult placed evolving nature of the stroke - repeat head CT: Interval increase in hypodensity of the right basal ganglia/still radiata infarct likely represents an evolving infarct. No hemorrhage is seen. - started heparin drip - started on warfarin per pharmacy 09/23/2024 - stopped heparin as patient in target INR Parkinson's disease can not be ruled out - outpatient follow up with Neurology recommended Acute complicated UTI - urine nitrites 2+, urine leukocyte esterase 3+, moderate bacteria - IV ceftriaxone daily stopped - nitrofurantoin 100 mg p.o. b.i.d. - ordered urine culture Hypertensive emergency, now improving ALOC due to above, improved Heart failure with improved ejection fraction of (previously 35% on 01/19/2024, now 50% on 09/17/2024) CAD, s/p CABG in 2016 - lisinopril 10 mg - metoprolol succinate 25 mg - nifedipine 60 mg p.o. daily MATILDE on questionable CKD, now improving - monitor Paroxysmal atrial fibrillation, currently stable Secondary hypercoagulable state due to family history - lower extremity USG: No right or left femoropopliteal venous thrombosis - ordered thrombophilia workup including antithrombin 3 antibody, factor V laden mutation, fibrinogen, lupus anticoagulant, protein C NS antigen - consulted heme oncology Hypothyroidism - levothyroxine 150 mcg Psychosis, unspecified - monitor Goals of care: Full code, discussed for >16 minutes on 09/17/24 Plan discussed with patient Plan discussed with Dr. Chu Plan discussed with: Patient, Spouse, Other (RN) Dietary Evaluation Review Comments: Encourage and monitor PO intake to meet 75% of her needs Expected Outcomes/Goals: Improved PO intakes ITZEL ALEX RESIDENT Oct 01, 2024 16:19
[2024-10-01] MEDS ORDERED: WARFARIN SODIUM 5 MG TAB PO ONE (17:00)
[2024-10-01] MEDS ORDERED: NITROFURANTOIN 100 mg CAP PO SCH (22:00)
[2024-10-02 01:00] VITALS: BP 125/60; PULSE 61; RESP 18; TEMP 97.4; O2SAT 95
[2024-10-02 04:49] VITALS: BP 120/54; PULSE 56; RESP 17; TEMP 98.1; O2SAT 97
[2024-10-02 07:19] LABS: INR 2.42 (0.9-1.15)
[2024-10-02 07:21] LABS: Potassium 4.3 mmol/L (3.5-5.1); Sodium 142 mmol/L (136-145)
[2024-10-02 07:22] LABS: Anion Gap 7 (5-15); Calcium 9.9 mg/dL (8.7-10.4); Carbon Dioxide 27 mmol/L (20-31)
[2024-10-02 07:27] LABS: BUN/Creatinine Ratio 20.5 (10.0-20.0); Glucose 93 mg/dL (74-106)
[2024-10-02 07:30] LABS: Blood Urea Nitrogen 25 mg/dL (9-23); Chloride 108 mmol/L (98-107)
[2024-10-02 08:00] VITALS: PULSE 73; RESP 15; O2SAT 97
[2024-10-02 08:58] VITALS: BP 130/64; PULSE 56; RESP 17; TEMP 98.4; O2SAT 96
--- NOTE | 2024-10-02 12:02 | DVHDSRES ---
Discharge Summary Date of Admission Resident Creating Document: ITZEL ALEX RESIDENT Sep 16, 2024 at 17:58 Date of Discharge: Oct 02, 2024 Admitting Diagnosis Generalized weakness, altered level of consciousness Labs/Diagnostic Data: Laboratory Results Test 10/02/24 06:18 10/01/24 05:19 09/28/24 03:08 09/19/24 19:08 Prothrombin Time 24.0 sec (9.3-11.8) Prothrombin Time INR 2.42 (0.9-1.15) Activated Partial Thromboplast Time 43.0 SEC (24.5-34.5) Sodium Level 142 mmol/L (136-145) Potassium Level 4.3 mmol/L (3.5-5.1) Chloride Level 108 mmol/L (98-107) Carbon Dioxide Level 27 mmol/L (20-31) Anion Gap 7 (5-15) Blood Urea Nitrogen 25 mg/dL (9-23) Creatinine 1.22 mg/dL (0.550-1.02) Glomerular Filtration Rate Calc 47 mL/min (>90) BUN/Creatinine Ratio 20.5 (10.0-20.0) Serum Glucose 93 mg/dL (74-106) Calcium Level 9.9 mg/dL (8.7-10.4) White Blood Count 6.3 10^3/uL (4.4-10.8) Red Blood Count 3.96 10^6/uL (4.0-5.20) Hemoglobin 12.3 g/dL (12.2-16.2) Hematocrit 36.4 % (36.0-46.0) Mean Corpuscular Volume 91.9 fL (80.0-100.0) Mean Corpuscular Hemoglobin 31.1 pg (28.0-32.0) Mean Corpuscular Hemoglobin Concent 33.8 g/dL (32.0-36.0) Red Cell Distribution Width 13.4 % (11.8-14.3) Platelet Count 242 10^3/uL (140-450) Mean Platelet Volume 7.5 fL (6.9-10.8) Neutrophils (%) (Auto) 66.7 % (37.0-80.0) Lymphocytes (%) (Auto) 14.0 % (10.0-50.0) Monocytes (%) (Auto) 13.1 % (0.0-12.0) Eosinophils (%) (Auto) 5.6 % (0.0-7.0) Basophils (%) (Auto) 0.6 % (0.0-2.0) Neutrophils # (Auto) 4.2 10 ^3/uL (1.6-8.6) Lymphocytes # (Auto) 0.9 10 ^3/uL (0.4-5.4) Monocytes # (Auto) 0.8 10 ^3/uL (0-1.3) Eosinophils # (Auto) 0.4 10 ^3/uL (0-0.8) Basophils # (Auto) 0 10 ^3/uL (0-0.2) Nucleated Red Blood Cells 0.1 % Urine Color Light-yellow (Yellow) Urine Clarity Turbid (Clear) Urine pH 6.0 (5.0-9.0) Urine Specific [place] 1.024 (1.001-1.035) Urine Protein Negative (Negative) Urine Ketones Trace (Negative) Urine Blood Negative /uL (Negative) Urine Nitrite 2+ (Negative) Urine Bilirubin Negative (Negative) Urine Urobilinogen Normal mg/dL (Negative) Urine Leukocyte Esterase 3+ /uL (Negative) Urine RBC 36 /hpf (0 - 4) Urine WBC 67 /hpf (0 - 5) Urine Squamous Epithelial Cells Few /hpf (<5) Urine Bacteria Mod /hpf (None Seen) Urine Mucus Few (None Seen) Urine Yeast (Budding) Loaded /hpf (None Seen) Urine Glucose Normal mg/dL (Normal) Prothrombin Time Diluted 41.4 sec (0.0-47.6) Dilute PT Confirmation Ratio 0.94 Ratio (0.00-1.34) Thrombin Time 20.7 sec (0.0-23.0) Fibrinogen 433 mg/dL (177-375) Lupus Anticoagulant PTT 41.2 sec (0.0-43.5) Dilute Sergey Viper Venom (Lupus) 37.9 sec (0.0-47.0) Lupus Anticoagulant Interpretation Comment: (.) Protein C Antigen 59 % (60-150) Protein S Antigen 133 % (60-150) Free Protein S Antigen 102 % (61-136) Anti-Thrombin III Antigen 124 % (72-124) Test 09/19/24 05:53 09/16/24 19:00 09/16/24 18:57 Total Bilirubin 0.5 mg/dL (0.2-1.0) Aspartate Amino Transferase (AST) 12 U/L (13-40) Alanine Aminotransferase (ALT) 15 U/L (7-40) Alkaline Phosphatase 92 U/L (46-116) Total Protein 6.6 g/dL (5.7-8.2) Albumin 3.9 g/dL (3.2-4.8) SARS-CoV-2 Antigen (Rapid) Negative (NEGATIVE) Troponin I High Sensitivity 24 ng/L (</=34) Vitamin B12 Level 468 pg/mL (211-911) Folic Acid 39.96 ng/mL (>5.38) Thyroid Stimulating Hormone (TSH) 4.30 uIU/mL (0.55-4.78) Other Laboratory Tests 10/02/24 06:18 10/01/24 05:19 Brief Hx & Hospital Course: Patient is a 69-year-old female with past medical history of HFrEF 35%EF, septic arthritis, anemia of chronic disease, hypertension, seizures, coronary artery disease, questionable septic arthritis who came in due to generalized weakness and confusion. According to the patient, last night on 09/15/2024 got up to use the restroom but she felt like she could not stand and her left leg was not moving and she lost her balance, fell on the bed, patient notes that she had a seizure and subsequently noticed that her nose was bleeding. At the scene patient was found to have a blood glucose of 86 and a systolic blood pressure of 199 by the EMS staff. Patient also notices a erythematous rash on her left forearm that has been present for the past 4 weeks, patient states that it started as a rash that bled easily and has been ongoing and progressively worsening. She was recently started on Keppra 1000 mg b.i.d. which was subsequently reduced to Keppra 500 mg b.i.d. owing to patient experiencing unpleasant side effects including spasms, hiccups. On physical exam, patient has normal strength and sensation in bilateral upper and lower extremities. Patient is on eliquis 5mg bid for paroxysmal afib. Hospital course: Head CT on the day of admission showed no acute intracranial hemorrhage, stable findings of old lacunar infarct. Repeat head CT later that evening showed focal hypodensity seen involving the right basal ganglia and external capsule, with no associated mass effect. This likely represents an acute onset infarct in adequate clinical settings. Old lacunar infarcts in the bilateral ganglia, capsular regions and centrum semiovale. Ischemic change in the periventricular deep white matter. Age-related cortical atrophy with prominence of cortical sulci and ventricular system. Bilateral ethmoid and sphenoid sinusitis. Neurology was also taken on board. MRI of the brain showed acute to subacute infarct extending from the right still radiated to the right lentiform nucleus. There is no evidence of acute hemorrhage. There is no significant surrounding edema or associated mass effect. Multiple scattered small foci of blooming artifact in the right and left cerebrum likely foci chronic petechial hemorrhage. Zyaz-kx-[id number] chronic microvascular white matter ischemic changes. head and neck CT angiography showed No large vessel occlusion or high- grade stenosis in the arteries of the head and neck. No aneurysm is identified. Pt was started on aspirin 81 mg and atorvastatin 80 mg. Cardiology was also taken on board and patient completed a SAMUEL which showed left atrial appendage showing a small thrombus in the distal segment of the appendage. There was slight pedunculated lesion noted. There is a large appendage. Bubble study was negative for crossover within the atrium or ventricle. Patient was started on heparin drip which was eventually transitioned to warfarin per pharmacy on 09/23/2024. Once patient reached target INR, heparin drip was stopped. Patient was also continued on lisinopril, metoprolol succinate, nifedipine, levothyroxine. For UTI patient was treated with IV ceftriaxone. On the day of discharge, patient appeared well and had stable vital signs. was at bedside, discussion about plan of care and discharge plan was discussed with the patient and spouse in detail were all questions were answered and concerns addressed. Her hospital course was uncomplicated. Patient was prescribed aspirin 81 mg, atorvastatin 80 mg and warfarin 5 mg and instructed to follow up with Neurology and also follow up in Coumadin Clinic within 14 days after discharge. General Appearance: Cooperative. Well developed. Well nourished. NAD Head Exam: Normal inspection Neck Exam: Normal inspection. Non-tender. Normal alignment Pulmonary/Respiratory: Chest non-tender. Clear bilateral breath sounds, no crackles, no wheezing. Cardiovascular/Chest: Regular rate and rhythm. No murmurs. No JVD. Peripheral Pulses: 2+ Radial (R). 2+ Radial (L). 2+ Pedal (R). 2+ Pedal (L) Abdominal Exam: Normal bowel sounds. Soft. normal abdomen, no visible veins, Nontender. No hepatospenomegaly. No masses Ankle Exam: Negative ankle edema Upper extremities: Erythematous macular/petechial rash on the right forearm, i mproved. 3+ strength right upper extremity, 1+ strength left upper extremity Lower extremities: Negative lower extremity edema. 3+ strength right lower extremity, 1+ strength left lower extremity Neuro/Mental Status: A&O x3. Coherent. Thoughts/Psych: Normal thought pattern. Appropriate mood and affect. Good judgement and insight Skin Exam: Normal inspection. Normal color. Warm. Dry. Normal sensations throughout Consults/Reason for consult Neurology: Acute ischemic stroke Cardiology: For SAMUEL Operations or Procedures APPROVED REPORT EXAM: Two-dimensional and M-mode echocardiogram with Doppler and color Doppler. Blood Pressure: 164/84 mmHg INDICATION CVA/TIA: RISK FACTORS Height: 5'4", Weight: 180 DIMENSIONS LVDd 5.5 (3.8-5.7cm) LA (2D) 5.2 (1.9-4.0cm) Aortic Root 3.5 (2.0- 3.7cm) LVDs 4.1 (2.5-4.0cm) LA (MM) (1.9-4.0cm) Aortic Cusp Exc 0.9 (1.5- 2.0cm) EF (%) 50.0 (55-70%) Rt. Atrium 4.1 (1.9-4.0cm) Asc. Aorta 4.6 cm IVSd 1.3 (0.7-1.1cm) RV (D) 4.0 (1.8-2.4cm) PWd 1.0 (0.7-1.1cm) Mitral Valve Mitral Mitral Stenosis E wave 0.81m/s MV Mean GR. mmHg A wave 1.15m/s MV Peak GR. mmHg E/A ratio 0.7 2D MVA cm2 DECEL Time 120ms PRESS 1/2 Time ms Aortic Valve Aortic Valve Aortic Stenosis V1 0.77m/s AO Mean GR. 12mmHg V2 2.21m/s AO Peak GR. 20mmHg LVOT Diameter 2.1 (1.8-2.4cm) Doppler HOSSEIN 1.21cm2 2D HOSSEIN 1.73cm2 AI P 1/2 Time 369.04ms Pulmonic Valve V2 1.16m/s Conclusion Lower normal limits of left ventricular systolic function at 50%. There is a grade diastolic dysfunction. Normal right ventricular size and dimension. Normal right ventricular systolic function. Normal biatrial size and dimension. The aortic valve is mildly thickened and sclerotic no significant stenosis but mild regurgitation. The mitral valve is mildly thickened there is mild mitral valve regurgitation. Normal tricuspid valve structure and function. The pulmonary valve has mild pulmonary valve regurgitation. No significant pericardial effusion. Operative Report - 2 Operative Report - 2 Report Details Date: 09/22/24 Preop Diagnosis: CVA Postop Diagnosis: Status post samuel. Left atrial thrombus. Surgeon: Chino Mane MD Anesthesiologist: Conscious sedation Anesthesia: Mac Consent: The patient was informed of the risks and benefits of the procedure. These include but are not limited to complications of anesthesia, postoperative infection, incomplete relief of symptoms, recurrence of symptoms, damage to blood vessels, nerves and tendons, deep venous thrombosis, pulmonary embolism and possible need for repeat surgery in the future. Complications: No complications Findings: Small left atrial thrombus. Indications for Surgery: CVA Name of Procedure Performed Transesophageal echocardiogram Procedure Details Procedure Details: Prior full informed consent obtaining conscious sedation given. The patient was prepped and draped in usual fashion placed in the left lateral and semi-[place] position patient had lidocaine jelly to gargle and two mg Versed and 50 mcg of fentanyl intravenously. We passed a transesophageal probe without difficulty. Standard views obtained. We could not perform a transgastric approach. There is an island hernia likely. Patient tolerated the procedure well there were no complications. Findings: Technically good study. Sinus rhythm. Left atrial enlargement. Concentric LVH. Valves appear to be structurally normal without intrinsic defects. Left ventricular function is preserved at 50% with normal RV function. There was mild mitral insufficiency with [id number] tricuspid regurgitation. Mild pulmonic insufficiency with no aortic insufficiency. No pericardial effusion. The left atrial appendage did show a small thrombus in the distal segment of the appendage. There was slight pedunculated lesion noted. There is is a large appendage. No other masses or vegetations discernible. Bubble study was negative for crossover within the atrium or ventricle. No atrial or ventricular septal defects identified. Condition at Discharge: Fair Final Diagnosis/Problems List Acute-Subacute stroke in right basal ganglia, evolving Multiple chronic strokes Possible vascular dementia Left atrial thrombus Parkinson's disease can not be ruled out Acute complicated UTI Hypertensive emergency, now improving ALOC due to above, improved Heart failure with improved ejection fraction of (previously 35% on 01/19/2024, now 50% on 09/17/2024) CAD, s/p CABG in 2016 MATILDE on questionable CKD, now improving Paroxysmal atrial fibrillation, currently stable Secondary hypercoagulable state due to family history Hypothyroidism [facility]charge Disposition: [facility] Discharge Instruct/Medications Diet: Cardiac 2g Na,low cholest Activity: No Restrictions, As Tolerated Follow Up/Referral: please follow up with pcp in 1-2 weeks please follow up with neurology in the outpatient clinic Please follow up in Coumadin Clinic within 14 days of discharge Medications: aspirin 81mg atorvastatin 80mg warfarin 5mg for 28 days Discharge Statement: "Patient was advised to return to the ER or call 911 if any headaches, dizziness, shortness of breath, chest pain, abdominal pain, bleeding, fevers, or worsening of medical condition. Patient was counseled about treatment plan, medications, possible side effects, patientverbalized understanding. All questions were answered to the best of my ability. This discharge took greater then 30 minutes in planning, reviewing documentation, counseling the patient, and discussing with other team members." ASSESSMENT ASSESSMENT Assessment Acute-Subacute stroke in right basal ganglia, evolving Multiple chronic strokes Possible vascular dementia Left atrial thrombus Parkinson's disease can not be ruled out Acute complicated UTI Hypertensive emergency, now improving ALOC due to above, improved Heart failure with improved ejection fraction of (previously 35% on 01/19/2024, now 50% on 09/17/2024) CAD, s/p CABG in 2016 MATILDE on questionable CKD, now improving Paroxysmal atrial fibrillation, currently stable Secondary hypercoagulable state due to family history Hypothyroidism ITZEL ALEX RESIDENT Oct 02, 2024 12:02
[2024-10-02] MEDS ORDERED: ASPI1TAB20 PO (12:09)
[2024-10-02] MEDS ORDERED: WARF-66 PO (12:09)
[2024-10-02] MEDS ORDERED: ATOR-47 PO (12:09)
[2024-10-02 13:13] VITALS: BP 130/64; PULSE 56
[2024-10-02 13:34] VITALS: BP 135/69; PULSE 76; RESP 18; TEMP 98.5; O2SAT 95
[2024-10-02] MEDS: WARFARIN SODIUM 5 MG TAB PO ONE (13:55)
== END 2024-10-02 20:50 | DRG 65 ==
LOC: ER 11:01 → EDBD 11:01 → TELE 17:58 → TELE-EAST 22:55 → TELE-CENTR 09-30 16:40 → CENTRAL 10-01 00:57
PROVIDERS: ADMIT Student in an Organized Health Care Education/Training Program; ATTEND Student in an Organized Health Care Education/Training Program
PROC: B24BZZ4 Ultrasonography of Heart with Aorta, Transesophageal (ICD-10-PCS; principal; 2024-09-22)
DX: I63.89 Other cerebral infarction (principal); D68.69 Other thrombophilia; I16.1 Hypertensive emergency; I13.0 Hypertensive heart and chronic kidney disease with heart failure and stage 1 through stage 4 chronic kidney disease, or unspecified chronic kidney disease; I50.22 Chronic systolic (congestive) heart failure; N17.9 Acute kidney failure, unspecified; I48.0 Paroxysmal atrial fibrillation; Z20.822 Contact with and (suspected) exposure to COVID-19; E03.9 Hypothyroidism, unspecified; N18.9 Chronic kidney disease, unspecified; G20.A1 Parkinson's disease without dyskinesia, without mention of fluctuations; F01.50 Vascular dementia, unspecified severity, without behavioral disturbance, psychotic disturbance, mood disturbance, and anxiety; E66.01 Morbid (severe) obesity due to excess calories; E78.5 Hyperlipidemia, unspecified; I25.10 Atherosclerotic heart disease of native coronary artery without angina pectoris; R23.3 Spontaneous ecchymoses; I51.3 Intracardiac thrombosis, not elsewhere classified; F29 Unspecified psychosis not due to a substance or known physiological condition; Z68.29 Body mass index [BMI] 29.0-29.9, adult; Z88.1 Allergy status to other antibiotic agents; Z90.49 Acquired absence of other specified parts of digestive tract; Z79.01 Long term (current) use of anticoagulants; Z95.1 Presence of aortocoronary bypass graft
CPT/HCPCS: 36415; 70450; 70496; 70551; 71045; 80048; 80053; 81001; 81241; 82607; 82746; 84443; 84484; 85025; 85301; 85302; 85305; 85306; 85384; 85610; 85613; 85670; 85705; 85730; 85732; 86850; 86900; 86901; 87081; 87086; 87426; 93005; 93306; 93318; 93970; 93971; 96361; 96374; 97110; 97116; 97163; 97530; 99152; G0378; J2250; J2405